=== PATIENT | female | born 1935 | race Caucasian/White ===

== ENCOUNTER 2024-10-28 11:14 | Inpatient (IN) | payer MEDICARE, OTHER, SELFPAY ==
[2024-10-28] VITALS (17 sets, daily range): BP systolic 92–112; BP diastolic 52–78; PULSE 94–145; RESP 18–36; TEMP 36.4–38.3; O2SAT 92–96; BMI 22.2
--- NOTE | ~2024-10-28 | XR_ITS ---
XR shoulder RT min 2V Ordering provider: Balaji Lackey MD History: . shoulder pain . Comparison: None. FINDINGS: BONES: No acute fracture or dislocation. JOINT SPACES: The acromioclavicular joint is normal. The glenohumeral joint shows moderate osteoarthr itic changes with osteophyte formation seen in the inferior part of the head of the humerus. SOFT TISSUES: Normal. IMPRESSION: No acute osseous abnormality right shoulder. 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 Reviewed, dictated and finalized at location A.
--- NOTE | ~2024-10-28 | CT_ITS ---
History: Altered mental status PROCEDURE: CT head without contrast. COMPARISON: None TECHNIQUE: Axial imaging of the head performed from the skull base to the vertex without IV contrast. Sagittal a nd coronal reformations obtained. DLP: 681 mGy-cm FINDINGS: The ventricles are enlarged. The dilatation of the ventricles is proportional to the degree of sulcal prominence, not uncommon in the senescent brain. Decreased attenuation is identified within the periventricular white matter, likely secondary to micr ovascular ischemic disease, in a patient of this age. There is no mass, mass effect or midline shift. There is no abnormal extra-axial fluid collection. A 5 mm intraparenchymal focus of increased attenuation is identified within the left frontal lobe for which an acute hemorrhage is suspected. Query history of trauma. Visualized paranasal sinuses are clear. The mastoid air cells are well aerated. No acute displaced fractures within the overlying cranium. Impression: Small subarachnoid hemorrhage, within the left frontal lobe, high in the convexity, as detailed above . These findings were discussed with Dr. Lackey at 2:45 PM on 10/28/2024 Reviewed, dictated and finalized at location A. Impression: Small subarachnoid hemorrhage, within the left frontal lobe, high in the convex ity, as detailed above. These findings were discussed with Dr. Lackey at 2:45 PM on 10/28/2024
--- NOTE | ~2024-10-28 | XR_ITS ---
Portable chest x-ray Comparison: None Clinical History: Altered mental status Findings: There is linear scarring right lung base. Probable small left pleural effusion. Cardiomed iastinal silhouette is prominent. Vertebroplasty noted probably T8 and T12. Impression: Probable small left pleural effusion. Linear scarring right lung base. Reviewed, dictated and finalized at [facility]. Impression: Probable small left pleural effusion. Linear scarring right lung base.
--- NOTE | ~2024-10-28 | CT_ITS ---
CT head without contrast Indication: Subarachnoid hemorrhage COMPARISON: 10/28/2024 Technique: Serial scans were obtained through the brain without the administration of contrast. Dose reduction technique was used on this scan by utilizing automated exposure control and iterative recon struction technique. The dose-length product (DLP) was 681.00 mGy-cm. Findings: There is thinning at any acute subarachnoid hemorrhage in the right frontal region (axial i mages 38-41). A small density seen from prior exam of the left frontal region is improved.. The vent ricles and subarachnoid spaces are dilated, consistent with moderate atrophy. Low attenuation region s are seen within the periventricular white matter bilaterally, likely representing changes from photogrammetric engineer mark microvascular ischemic disease. There is no evidence of edema, mass effect or midline shift. Th e visualized paranasal sinuses and mastoid air cells are clear. Impression: Small amount of acute subarachnoid hemorrhage in the right frontal region, new from prior exam. Previ ously noted small amount of subarachnoid hemorrhage in the left frontal region is decreased/improved. Atrophy and chronic white matter changes, as above. Reviewed, dictated and finalized at location M. Impression: Small amount of acute subarachnoid hemorrhage in the right frontal region, new from prior exam. Previously noted small amount of subarachnoid hemorrhage in th e left frontal region is decreased/improved. Atrophy and chronic white matter changes, as above.
--- NOTE | 2024-10-28 11:30 | ECG_ITS ---
Test Date: 2024-10-28 11:37:50 Measurements Intervals [place] Rate: 106 P: 0 DE: 0 QRS: -57 QRSD: 156 T: -3 QT: 348 QTc: 462 Interpretive Statements ATRIAL FIBRILLATION WITH RAPID VENTRICULAR RESPONSE RIGHT BUNDLE BRANCH BLOCK LEFT ANTERIOR FASCICULAR BLOCK MODERATE T-WAVE ABNORMALITY, CONSIDER ANTEROLATERAL ISCHEMIA BASELINE ARTIFACT- II, V4-V5 ABNORMAL ECG No previous ECG available for comparison Electronically Signed On 10-28-2024 15:55:26 CDT by Jw Nova D.O.
[2024-10-28 11:36] LABS: Glucose Point of Care 106 mg/dl (65-105)
[2024-10-28 12:02] LABS: Basophils Percent Auto 0.2 % (0.2-1.2); Eosinophils Absolute Auto 0.3 K/mm3 (0-0.3); Eosinophils Percent Auto 2.2 % (0-4.4); Hematocrit 35.1 % (37.0-47.0); Hemoglobin 11.2 g/dL (12.0-15.0); Immature Granulocyte Absolute 0.15 K/mm3 (0.00-0.031); Immature Granulocyte Percent A 1.1 % (0-0.5); Lymphocytes Percent Auto 3.8 % (18.3-44.2); Mean Corpuscular HGB Conc 31.9 g/dl (32-36); Mean Corpuscular Hemoglobin 32.4 pg (26-34); Mean Corpuscular Volume 101.4 fl (80-100); Mean Platelet Volume 9.5 fl (7.4-10.4); Monocytes Absolute Auto 0.7 K/mm3 (0.1-0.6); Neutrophils Absolute Auto 11.5 K/mm3 (1.3-6.7); Neutrophils Percent Auto 87.7 % (45.5-73.1); Platelet Count Result 233 k/mm3 (150-375); Red Blood Count 3.46 M/mm3 (4.2-5.4); Red Cell Distribution Width 13.2 % (11.5-14.5); White Blood Count 13.1 K/mm3 (4.5-10.0)
[2024-10-28 12:14] LABS: INR 3.8; Prothrombin Time 37.8 Seconds (11.1-14.7)
[2024-10-28 12:15] LABS: Alanine Aminotransferase 33 U/L (6-35); Albumin Level 2.7 g/dL (3.5-5.1); Alkaline Phosphatase 101 U/L (38-126); Anion Gap 8 mmol/L (4-12); Aspartate Amino Transferase 50 U/L (14-36); Bilirubin,Total 0.8 mg/dL (0.2-1.3); Blood Urea Nitrogen 32 mg/dL (7-17); Calcium 9.1 mg/dL (8.4-10.2); Carbon Dioxide 27 mmol/L (22-30); Chloride 99 mmol/L (98-107); Estimated CRCL calculation 32 ml/min; Estimated Glomerular Filt Rate 52; Glucose 102 mg/dL (65-110); Partial Thromboplastin Time 37.8 Seconds (22.3-36.8); Potassium 4.7 mmol/L (3.4-5.0); Sodium 134 mmol/L (137-145)
[2024-10-28 12:22] LABS: Add Urine Microscopic? YES; Appearance Urine Turbid (Clear); Bilirubin Urine 1+ (Negative); Blood Urine 3+ (Negative); Color Urine Dark Yellow (Yellow); Glucose Urine UA Negative (Negative); Ketones Urine Trace mg/dL (Negative); Leukocyte Esterase Ur 3+ LEU/UL (Negative); Nitrate Urine Positive (Negative); Protein Urine 2+ mg/dL (Negative); Specific Grav Ur 1.024 (1.001-1.035); pH Urine 6.5 (5.0-9.0)
--- NOTE | 2024-10-28 12:30 | PC.NURSE ---
Family at bedside reports pt behavior has been declining for the past three days. Reports she has been more fatigued and needing more assistance with ADL's. Reports last seen yesterday and was more confused than baseline. Also reports large bump on pt R shoulder is enlarged, facility recently did imagining that revealed no fractures but family states it looks larger than normal. staff and family denies any recent falls.
[2024-10-28 12:38] LABS: CRP 25.2 mg/dL (<1.0)
[2024-10-28 12:56] LABS: RBC Urine 51-100 /hpf (0-2); WBC Urine >100 /hpf (0-3)
[2024-10-28 12:57] LABS: Bacteria Urine 4+ /hpf; Squamous Epithelial Cell Urine None Seen /hpf (Few)
[2024-10-28 13:11] LABS: Lactic Acid Reflex 1.6 mmol/L (0.7-2.0)
--- NOTE | 2024-10-28 13:45 | PCCCNOTE ---
Spoke with family, pt recently living at an independent living facility but has had a decline in health and is currently at [facility] for rehab. Rehab not going well according to the family. Pt has been seen in the [facility] system extensively with both PCP and hospitalization in the [facility]. Family is only inquiring about Hospice but would like pt treated medically at this time. If hospice is decided later they would like the [facility] hospice service. Other services needed would be to arrange a SNF closer to home in [facility].
--- OUTSIDE RECORDS SUMMARY | 2024-10-28 14:06 | XMS_ITS | Continuity of Care Document ---
Author Organization [facility] Address [address] [place] [address] Phone Care Team Providers Care Associate Professor Of Medicine Name Role Phone Jered OD, Jonnathan Unavailable Unavailable Medications Medication Instructions Dosage Effective Dates (start - stop) Status Comments Polytrim 10,000 unit-1 mg/mL eye drops 1 Drop Left Eye 3x Daily. Starting 3 days prior to Surgery. - Active prednisolone acetate 1 % eye drops,suspension 1 Drop Left Eye 3x Daily. Starting 3 days prior to Surgery. - Active ketorolac 0.4 % eye drops 1 Drop Left Eye 3x Daily. Starting 3 days prior to Surgery - Active ok to change to 0.5% if 0.4% is not in stock Polytrim 10,000 unit-1 mg/mL eye drops instill 1 drop into right eye 3 times a day starting 3 days prior to surgery - Active prednisolone acetate 1 % eye drops,suspension instill 1 drop by ophthalmic route 3 times every day into right eye starting 3 days prior to surgery - Active ketorolac 0.4 % eye drops instill 1 drop by ophthalmic route into right eye three times a day starting 3 days prior to surgery - Active ok to change to 0.5% if 0.4% is not in stock Eliquis 5 mg tablet - Active atenolol 50 mg tablet - Active furosemide 20 mg tablet - Active potassium chloride ER 10 mEq tablet,extended release - Active DILT-XR 120 mg capsule, extended release - Active losartan 25 mg tablet - Active lisinopril 20 mg tablet - Active Polytrim 10,000 unit-1 mg/mL eye drops 1 Drop Left Eye 3x Daily. Starting 3 days prior to Surgery. - No Longer Active prednisolone acetate 1 % eye drops,suspension 1 Drop Left Eye 3x Daily. Starting 3 days prior to Surgery. - No Longer Active ketorolac 0.4 % eye drops 1 Drop Left Eye 3x Daily. Starting 3 days prior to Surgery - No Longer Active ok to change to 0.5% if 0.4% is not in stock Procedures Procedure Date POSTOP FOLLOW-UP VISIT POSTOP FOLLOW-UP VISIT CATARACT SURG W/IOL, 1 STAGE OPHTHALMIC BIOMETRY LT POSTOP FOLLOW-UP VISIT POSTOP FOLLOW-UP VISIT CATARACT SURG W/IOL, 1 STAGE GDX Retina OPHTHALMIC BIOMETRY LT OFFICE/OUTPATIENT VISIT, [facility] Advance Directives Directive Yes / No Effective Date File Name No Information Encounters Encounter Description Practice Location Reason(s) For Visit Diagnoses Date Provider Providers Copied on Encounter [facility], [address] [place] [address], [id number], [place] [phone] [facility] Same day post-op (chief complaint) Encounter for other specified surgical aftercare 1 Jered De Santiago. [address] [facility], [place], [address], [place]. tel: [phone] Referring Provider: Xavier Oconnor, [address] [place], [address]. tel:[phone] [facility], [address] [place] [address], [id number], [place] tel:[phone] [address] [place] [address] [facility] No Information 1 Sathish Randall. [address] [place] [address], [facility], . tel: [phone] Referring Provider: [address] A, [place], [address]. tel:[phone] [facility], [address] [place] [address], [address] [place] [address], tel:[phone] [place] [address] [facility] No Information 1 [facility]. [address] [place] [address], [facility], . tel: [phone] Referring Provider: [address], [place], [address]. tel:[phone] [facility], [address] [place] [address], [address] [place] [address], [phone] [place] [address] [facility] Age-related nuclear cataract, left eye 1 Sathish Randall. [address] [place] [address], [facility], . tel: [phone] [facility], [address] [place] [address], [id number], [phone] [place] [address] [facility] No Information 1 [facility]. [address] [place] [address], [facility], [place]. tel: [phone] [facility], [address] [place] [address], [id number], [phone] [place] [address] [facility] POV cataract surgery (chief complaint) Encounter for other specified surgical aftercare 1 Modi Purvi. [address] [place] [address], [facility], . tel: [phone] Referring Provider: [address], [place], [address]. tel:[phone] [facility], [address] [place] [address], [id number], tel:[phone] [address] [place] [address] [facility] No Information 1 [facility]. [address] [place] [address], [facility], . tel:[phone] Referring Provider: [address], [place], [address]. tel:[phone] OFFICE/OUTPA TIENT VISIT, [facility], [address] [place] [address], [id number], tel:[phone] [facility] blurry vision (chief complaint) Age-related nuclear cataract, bilateralNexdtve age-related mclr degn, left eye, intermed dry stageNexdtve age-related mclr degn, right eye, early dry stage 1 [facility]. [address] [place] [address], [facility], . [phone] Referring Provider: [address], [place], [address]. tel:[phone] Family History Family Member Type Diagnosis Age At Onset No Information Payers Payer name Insurance type Covered republican ID Authoriza tion(s) No Information Social History Type Description Quantity Date Captured Comments Alcohol Use Details Unknown Caffeine Use Details Unknown Tobacco Use Status No Information Smoking Status No Information Sex Female Chief Complaint And Reason For Visit From encounter dated '01/18/2021 11:15'. Same day post-op (chief complaint). Description: The 85 year old female presents for evaluation of Same day post-op in the left eye. No pain, no discomfort. Reason For Referral Reason For Referral No Information History Of Present Illness Encounter Date Complaint History Of Prese nt Illness Same day post-op The 85 year old female presents for evaluation of Same day post-op in the left eye. No pain, no discomfort. POV cataract surgery The 85 year old female presents for evaluation of POV cataract surgery in the right eye. The onset was this morning. Pt compliant with Polytrim, Prednisolone, Ketorolac OD. Pt reports surgery went well. Pt reports blurry vision OD but is in no pain. Comanaged by Dr. Oconnor. blurry vision The 85 year old female presents for evaluation of blurry vision in the right eye > left eye. Several years. Gradual onset. Constant. 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 Right Patient Care Teams Name Effective Dates (start - stop) Status Members No Information
--- OUTSIDE RECORDS SUMMARY | 2024-10-28 14:06 | XMS_ITS | Encounter Summary ---
Author Organization [facility] Address [address] [place] [address] Care Team Providers Care Underwater Photographer Name Role Phone Fela Zaidi MD Primary Care Provider + [phone] Eugene Leo MD Unavailable Unavailabl e Fela Zaidi MD Primary Care Provider + [phone] Teddy Vela MD Unavailable [phone] Fela Zaidi MD Unavailable [phone] Carline Tinsley RN Unavailable [phone] Carline Tinsley RN Unavailable [phone] Encounter Details Date Type Department Care Team (Late st Contact Info) Description 07/31/2018 Nippo Message Enc [facility] [place] [address] [facility], [address] [place] [address] Teddy Vela MD [address] [facility] [address] [place] [address] RE: Question Social History Tobacco Use Types Packs/Day Years Used Date Smoking Tobacco: Former Cigarettes 0.3 5 1 988 - 1992 Smokeless Tobacco: Never Alcohol Use Standard Drinks/Week Comments No 0 (1 standard drink = 0.6 oz pur e alcohol) Comments No Sex and Gender Information Value Date Recorded Sex Assigned at Female 09/19/2024 3:45 PM CDT Legal Sex Female 9:19 PM CDT Gender Identity Female 09/30/2024 2:31 PM CDT Sexual Orientation Straight 09/30/2024 2: 31 PM CDT Occupation Industry Job Start Date Job End Date Not on file Not on file Not on file Not on file documented as of this encounter Plan of Treatment Upcoming Encounters Date Type Department Care Team (Late st Contact Info) Description 11/15/2024 12:30 PM CDT Office Visit [facility] [address] [facility] [address], [address] [place] [address] Mabel Vasquez MD [facility] [address] [place], [place] [id number] documented as of this encounter Visit Diagnoses Not on filedocumented in this encounter Additional Health Concerns Infection Onset Date Last Indicated Resolved Time COVID-19 Rule Out 10/30/2022 10/30/2022 10/30/2022 4:50 PM CDT COVID-19 Rule Out 09/19/2024 09/19/2024 09/19/2024 4:00 PM CDT Respiratory Rule-Out 09/19/2024 09/19/2024 025 4:00 PM CDT COVID-19 Rule Out 09/19/2024 09/19/2024 09/19/2024 5:35 PM CDT Respiratory Rule-Out 09/19/2024 09/19/2024 025 7:10 PM CDT Influenza - Seasonal 09/19/2024 09/19/2024 025 12:32 AM CDT documented as of this encounter Care Teams Underwater Photographer Relationship Specialty Start Date End Date Fela Zaidi MD [address] [facility] [address] [place] [address] PCP - General FAMILY PRACTICE 04/01/18 09/12/18 Fela Zaidi MD [address] [facility] [address] [address] [place] [address] PCP - General FAMILY PRACTICE 09/22/18 Fela Zaidi MD [address] [facility] [address] [place] [address] PCP - Med Group - MSSP Attributed Provider 07/14/15 03/31/19 Eugene Leo MD [address] [facility] [address] [place] [address] Surgeon NEUROLOGICAL SURGERY 08/27/18 09/12/18 Teddy Vela MD [address] [facility] [address] [place] [address] [place] Bindery Helper CARDIOVASCULAR DISEASE 09/23/18 Carline Tinsley, RN [address] [facility] [address] [place] [address] Bricklayer Sewer (Ambulatory) REGISTERED NURSE 05/16/21 10/29/22 Carline Tinsley, RN [address] [facility] [address] [place] [address] Registered Nurse CARE MANAGEMENT 09/20/24 documented as of this encounter
--- OUTSIDE RECORDS SUMMARY | 2024-10-28 14:06 | XMS_ITS | Encounter Summary ---
Author Organization [facility] Address [address] [place] [address] Care Team Providers Care Follow Up Specialist Name Role Phone Fela Zaidi MD Primary Care Provider + [phone] Eugene Leo MD Unavailable Unavailabl e Fela Zaidi MD Primary Care Provider + [phone] Teddy Vela MD Unavailable [phone] Fela Zaidi MD Unavailable [phone] Carline Tinsley RN Unavailable [phone] Carline Tinsley RN Unavailable [phone] Encounter Details Date Type Department Care Team (Latest Contact Info) Description 05/19/2018 Abstract [facility] Medical Group Jeff Lam MD Social History Tobacco Use Types Packs/Day Years [...] Encounters Date Type Department Care Team (Late Contact Info) Description 11/15/2024 12:30 PM CDT Office Visit [facility] [address] [facility], [address] [place] [address] Mabel Vasquez MD Three [facility] [address] [place] [address] documented as of this encounter Visit Diagnoses [...] documented as of this encounter Care Teams Follow Up Specialist Relationship Specialty Start Date End Date Fela Zaidi MD [address] [facility] [address] [place] [address] PCP - General FAMILY PRACTICE 04/01/18 09/12/18 Fela Zaidi MD [address] [facility] [address] [place] [address] PCP - General FAMILY PRACTICE 09/22/18 Fela Zaidi MD [address] [facility] [address] [place] [address] PCP - Med Group - MSSP Attributed Provider 07/14/15 03/31/19 Eugene Leo MD [address] [facility] [address] [place] [address] Surgeon NEUROLOGICAL SURGERY 08/27/18 09/12/18 Teddy Vela MD [address] [facility] [address] [place] [address] [place] Pens [employer] Pencils Repairer CARDIOVASCULAR DISEASE 09/23/18 Carline Tinsley, RN [address] [facility] [address] [place] [address] [employer] Mock Up Mechanic (Ambulatory) REGISTERED NURSE 05/16/21 10/29/22 Carline Tinsley, RN [address] [facility] [address] [place] [address] Registered Nurse CARE MANAGEMENT 09/20/24 documented as of this encounter
--- OUTSIDE RECORDS SUMMARY | 2024-10-28 14:07 | XMS_ITS | Encounter Summary ---
Author Organization [facility] Address [address] [place] [address] Care Team Providers Care Samples And Repairs Preparer Name Role Phone Fela Zaidi MD Primary Care Provider + [phone] Teddy Vela MD Unavailable [phone] Carline Tinsley RN Unavailable [phone] Encounter Details Date Type Department Care Team (Late st Contact Info) Description 03/29/2024 [employer] Message Enc [facility] THREE [facility], [address] [place], [place] [id number] Milady Baumann, CHANDNI [address] [facility] [address] [place], [place] [id number] Elsi Syed Social History Tobacco Use Types Packs/Day Years Used Date Smoking Tobacco: Former Cigarettes 0.3 20 1 973 - 1992 Passive Smoke Exposure: Never Smokeless Tobacco: Never Comments:N/A Alcohol Use Standard Drinks/Week Comments No 0 (1 standard drink = 0.6 oz pur e alcohol) PHQ-2 Answer Date Recorded Patient Health Questionnaire-2 Score 0 10/27/2023 Comments No Sex and Gender Information Value Date Recorded Sex Assigned at Female 09/19/2024 3:45 PM CDT Legal Sex Female 9:19 PM CDT Gender Identity Female 09/30/2024 2:31 PM CDT Sexual Orientation Straight 09/30/2024 2: 31 PM CDT Occupation Industry Job Start Date Job End Date Not on file Not on file Not on file Not on file documented as of this encounter Functional Status * RETIRED Are you deaf or do you have serious difficulty hearing Answer Date of Assessment Author Status No 05/15/2021 9:31 PM CDT Activ e * RETIRED Are you blind or do you have serious difficulty seeing, even when wearing glasses? Answer Date of Assessment Author Status No 05/15/2021 9:31 PM CDT Activ e * Do you have serious difficulty walking or climbing stairs? Answer Date of Assessment Author Status Yes 05/15/2021 9:31 PM CDT Francisco Parish RN Active * Do you have difficulty dressing or bathing? Answer Date of Assessment Author Status No 05/15/2021 9:31 PM CDT Francisco Parish RN Active * Because of a physical, mental, or emotional condition, do you have difficulty doing errands alone such as visiting a doctor's office or shopping? Answer Date of Assessment Author Status Yes 05/15/2021 9:31 PM CDT Francisco Parish RN Active documented as of this encounter Mental Status * Because of a physical, mental, or emotional condition, do you have serious difficulty concentrating, remembering, or making decisions? Answer Entry Date Author Status No 05/15/2021 9:31 PM CDT Francisco Parish RN Active documented in this encounter Progress Notes * Beth Disla RN - 03/30/2024 4:28 PM CDT Continue 40 QD. BMP this week. Should be seen in clinic next week. Above message from Dr. Vasquez. MyChart message sent to the patient with the above information. Message to the dental secretary. documented in this encounter Plan of Treatment Upcoming Encounters Date Type Department Care Team (Late st Contact Info) Description 11/15/2024 12:30 PM CDT [facility] [address] [place] [address] Mabel Vasquez MD [facility] [address] [place] [address] documented as of this encounter Goals Goal Patient Goal Type Associated Problems Recent Progress Patient-Stated? Author Consistently take medications as Prescribed General On track( 2:45 PM REDUCING MACHINE OPERATOR) No Carline Tinsley, RN Note: 05/24/21: Patient is managing her medications and taking them as prescribed. Establish Plan for Symptom Monitoring r/t CHF and hyponatremia General On track( 2:45 PM REDUCING MACHINE OPERATOR) No Carline Tinsley, RN Note: 05/24/21: Breathing improved. Some dyspnea on exertion. No complaints of edema. No weights reported.daughter to assist patient in setting up scale and coming up with a plan to weigh each day. Will report wt gain >3 pounds overnight or >5 pounds in a week. documented as of this encounter Visit Diagnoses Not on filedocumented in this encounter Additional Health Concerns Infection Onset Date Last Indicated Resolved Time COVID-19 Rule Out 09/19/2024 09/19/2024 09/19/2024 4:00 PM CDT Respiratory Rule-Out 09/19/2024 09/19/2024 025 4:00 PM CDT COVID-19 Rule Out 09/19/2024 09/19/2024 09/19/2024 5:35 PM CDT Respiratory Rule-Out 09/19/2024 09/19/2024 025 7:10 PM CDT Influenza - Seasonal 09/19/2024 09/19/2024 025 12:32 AM CDT Assessment Noted Time PHQ-9 Depression Total Score: 0 10/27/19 24 2:32 PM CDT documented as of this encounter Care Teams Samples And Repairs Preparer Relationship Specialty Start Date End Date Fela Zaidi MD [address] [facility] [address] [place] [address] PCP - General FAMILY PRACTICE 09/22/18 Teddy Vela MD [address] [facility] [address] [place] [address] [place] Manager Training CARDIOVASCULAR DISEASE 09/23/18 Carline Tinsley, RN [address] [facility] [address] [place] [address] Registered Nurse CARE MANAGEMENT 09/20/24 documented as of this encounter
--- OUTSIDE RECORDS SUMMARY | 2024-10-28 14:07 | XMS_ITS | Encounter Summary ---
Author Organization [facility] Address [address] [place] [address] Care Team Providers Care Crown Attacher Name Role Phone Fela Zaidi MD Primary Care Provider + [phone] Teddy Vela MD Unavailable [phone] Carline Tinsley RN Unavailable [phone] Encounter Details Date Type Department Care Team (Late st Contact Info) Description 02/05/2023 [employer] Message Enc [place] [facility] THREE [facility], [address] [address] [place], [facility] Provider Echocardiogram Social History Tobacco Use Types Packs/Day Years Used Date Smoking Tobacco: Former Cigarettes 0.3 20 1 973 - 1992 Smokeless Tobacco: Never Comments:N/A Alcohol Use Standard Drinks/Week Comments No 0 (1 standard drink = 0.6 oz pur e alcohol) PHQ-2 Answer Date Recorded PHQ-2 Score - If the patient scores above 3, please move on to questions 3-9 0 03/21/2022 Comments No Sex and Gender Information Value [...] Parish RN Active documented in this encounter Plan of Treatment Upcoming Encounters Date Type Department Care Team (Late st Contact Info) Description 11/15/2024 12:30 PM CDT [facility] [address] [place], [place] [address] Mabel Vasquez MD [facility] [address] [place], [place] [phone] documented as of this encounter Goals Goal Patient Goal Type Associated Problems Recent Progress Patient-Stated? Author Consistently take medications as Prescribed General On track( 2:45 PM CLINICAL SUPPORT NURSE) No Carline Tinsley RN Note: 05/24/21: Patient is managing her medications and taking them as prescribed. Establish Plan for Symptom Monitoring r/t CHF and hyponatremia General On track( 021 2:45 PM CLINICAL SUPPORT NURSE) Carline Damon RN Note: 05/24/21: Breathing improved. Some dyspnea [...] documented as of this encounter Care Teams Crown Attacher Relationship Specialty Start Date End Date Fela Zaidi MD [address] [facility] [address] [place] [address] PCP - General FAMILY PRACTICE 09/22/18 Teddy Vela MD [address] [facility] [address] [place] [id number] [place] Photo Finish Photographer CARDIOVASCULAR DISEASE 09/23/18 Carline Tinsley, RN [address] [facility] [address] [place], [place] [id number] Registered Nurse CARE MANAGEMENT 09/20/24 documented as of this encounter
--- OUTSIDE RECORDS SUMMARY | 2024-10-28 14:07 | XMS_ITS | Encounter Summary ---
Author Organization [facility] Address [address] [place] [address] Care Team Providers Care Director Telemetry Name Role Phone Fela Zaidi MD Primary Care Provider + [phone] Teddy Vela MD Unavailable [phone] Carline Tinsley RN Unavailable [phone] Reason for Visit * Reason Onset Date Comments Hospital Follow Up 10/19/2024 Inpatient f/u w/[facility]--UPDATED 10/28 Encounter Details Date Type Department Care Team (Late st Contact Info) Description 10/19/2024 Patient Outreach [facility] Medical Group Family Medicine - [place] [address], [address] [place] [address] Carline Tinsley, RN [address] [facility] [address] [place] [address] Hospital Follow Up (Inpatient f/u w/[facility]--UPDATED 10/28) Social History Tobacco Use Types Packs/Day Years Used Date Smoking Tobacco: Former Cigarettes 0.3 20 1 3 - 1992 Passive Smoke Exposure: Never Smokeless Tobacco: Never Comments:N/A Alcohol Use Standard Drinks/Week Comments No 0 (1 standard drink = 0.6 oz pur e alcohol) B1300 Health Literacy Answer Date Recor ded How often do you need to hav e someone help you when you read instructions, pamphlets, or other written material from your doctor or pharmacy? Often 09/30/2024 [facility] Utilities Answer Date Recorded In the past 12 months has th e electric, gas, oil, or water [employer] threatened to shut off services in your home? No 09/30/2024 Humiliation, Afraid, Rape, and Kick questionnair e Answer Date Recorded Within the last year, have y ou been afraid of your partner or ex-partner? No 09/30/2024 Within the last year, have y ou been humiliated or emotionally abused in other ways by your partner or ex-partner? No Within the last year, have y ou been kicked, hit, slapped, or otherwise physically hurt by your partner or ex-partner? No 09/30/2024 Within the last year, have y ou been raped or forced to have any kind of sexual activity by your partner or ex-partner? No 09/30/2024 Social Connection and Isolation Panel [NHANES] A nswer Date Recorded In a typical week, how many times do you talk on the phone with family, friends, or neighbors? Once a week 10/01/19 How often do you get togethe r with friends or relatives? Twice a week 09/30/2024 How often do you attend chur ch or lutheran services? 1 to 4 times per year 09/30/2024 Do you belong to any clubs o r organizations such as yazdanism groups, unions, fraternal or athletic groups, or school groups? No 09/30/2024 How often do you attend meet ings of the clubs or organizations you belong to? Never 09/30/2024 Are you , , di vorced, , never , or living with a partner? 09/30/2024 Overall Financial Resource Strain (CARDIA) Answe r Date Recorded How hard is it for you to pa y for the very basics like food, housing, medical care, and heating? Not hard at all 09/30/2024 PHQ-2 Answer Date Recorded Patient Health Questionnaire-2 Score 0 09/30/2024 [facility] [place] [facility] Occupat ional Health - Occupational Stress Questionnaire Answer Date Recorded Do you feel stress - tense, restless, nervous, or anxious, or unable to sleep at night because your mind is troubled all the time - these days? Not at all 09/30/2024 Exercise Vital Sign Answer Date Recorde d On average, how many days pe r week do you engage in moderate to strenuous exercise (like a brisk walk)? 0 days 09/30/2024 On average, how many minutes do you engage in exercise at this level? 0 min 09/30/2024 Hunger Vital Sign Answer Date Recorded Within the past 12 months, y ou worried that your food would run out before you got the money to buy more. Never true 10/01/19 25 Within the past 12 months, t he food you bought just didn't last and you didn't have money to get more. Never true 09/30/2024 PRAPARE - Transportation Answer Date Re corded In the past 12 months, has l ack of transportation kept you from medical appointments or from getting medications? No 09/12 In the past 12 months, has l ack of transportation kept you from meetings, work, or from getting things needed for daily living? No 09/30/2024 Housing Stability Vital Sign Answer Harry e Recorded In the last 12 months, was t here a time when you were not able to pay the mortgage or rent on time? No 09/19/2024 In the past 12 months, how m any times have you moved where you were living? 0 09/19/2024 At any time in the past 12 m [facility], were you homeless or living in a penitentiary (including now)? No 09/19/2024 Comments No Sex and Gender Information Value [...] as of this encounter Functional Status * Are you deaf or do you have serious difficulty hearing Answer Date of Assessment Author Status No 09/30/2024 4:47 PM CDT Jocy Rm R N Active * Are you blind or do you have serious difficulty seeing, even when wearing glasses? Answer Date of Assessment Author Status No 09/30/2024 4:47 PM CDT Jocy Rm R N Active * Do you have serious difficulty walking or climbing stairs? Answer Date of Assessment Author Status Yes 09/30/2024 4:47 PM CDT Jocy Rm R N Active * Do you have difficulty dressing or bathing? Answer Date of Assessment Author Status Yes 09/30/2024 4:47 PM CDT Jocy Rm R N Active * Because of a physical, mental, or emotional condition, do you have difficulty doing errands alone such as visiting a doctor's office or shopping? Answer Date of Assessment Author Status Yes 09/30/2024 4:47 PM CDT Jocy Rm R N Active documented as of this encounter Mental Status * Because of a physical, mental, or emotional condition, do you have serious difficulty concentrating, remembering, or making decisions? Answer Entry Date Author Status Yes 09/30/2024 4:47 PM CDT Jocy Rm R N Active documented in this encounter Progress Notes * Carline Tinsley RN - 10/19/2024 8:49 AM CDT 10/19 0846: Spoke with Teto with facility. Reports patient is progressing no talks of dc. Denies anyknown dc date at this time. Discussed pcp appt for 10/25 and appt cancelled. Patient following in house provider and to follow up with pcp upon facility dc. 10/25 0933: Called facility and spoke with Gurjit and confirmed patient remains inhouse/rehab at this time 10/28 1108: Spoke with Tiara VASQUEZ, reports patient is doing ok, noting yesterday not the best day for patient. Reports that she had some pain issues and that they are continuing to try wean patient off of o2. Reports that patient is still needing max assist with transfers and mobility. Discussed patients previous living situation: ILF and likely will need at minimum SLF. Denies any known dc date at this time. Plan of Care: authorization coordinator to continue to follow throughout transitions of care. documented in this encounter Plan of Treatment Upcoming Encounters Date Type Department Care Team (Late st Contact Info) Description 11/15/2024 12:30 PM CDT Office Visit [facility] [place], [place] [id number] Mabel Vasquez MD [address] [facility] [address] [place], [place] [id number] documented as of this encounter Goals Goal Patient Goal Type Associated Problems Recent Progress Patient-Stated? 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 Some dyspnea on exertion. No complaints of edema. No weights reported.daughter to assist patient in setting up scale and coming up with a plan to weigh each day. Will report wt gain >3 pounds overnight or >5 pounds in a week. Health - patient able to perform ADLs independently Lifestyle No Ada Bonds RN documented as of this encounter Visit Diagnoses Not on filedocumented in this encounter Additional Health Concerns Assessment Noted Time PHQ-9 Depression Total Score: 0 10/27/19 24 2:32 PM CDT documented as of this encounter Care Teams Director Telemetry Relationship Specialty Start Date End Date Fela Zaidi MD [address] [facility] [address] [place] [phone] PCP - General FAMILY PRACTICE 09/22/18 Teddy Vela MD [address] [facility] [address] [place] [phone] Katrin Career Agent CARDIOVASCULAR DISEASE 09/23/18 Carline Tinsley, RN [address] [facility] [address] [place] [address] Registered Nurse CARE MANAGEMENT 09/20/24 documented as of this encounter
--- OUTSIDE RECORDS SUMMARY | 2024-10-28 14:07 | XMS_ITS ---
Author Organization [facility] Address [address] [place], [place] [id number] Care Team Providers Care Key Ringer Name Role Phone PURNIMA GARCIA Unavailable [phone] Fela Zaidi Unavailable Unavailable Allergies No Known Allergies REASON FOR VISIT The right 3rd toe did well after being treated at last visit., Patient presents for at-risk foot care . The patient has painful toenails and calluses that are causing difficulty with ambulation and shoegear. The onset is gradual Medications Medication SIG (Take, Route, Frequency, Duration) Notes Start Date End Date Status ubidecarenone 10 MG Oral Capsule ORAL ubidecarenone 10 MG Oral CapsuleOriginal Medicationubidecarenone 10 MG Oral Capsule *Reorder from [employer] for eRx and Interaction Alerts* 9 Active Apixaban 2.5 MG Oral Tablet ORAL apixaban 2.5 MG Oral TabletOriginal Medicationapixaban 2.5 MG Oral Tablet *Reorder from [employer] for eRx and Interaction Alerts* 9 Active Encounters Encounter Location Date Provider Diagnosis [facility] [address] [facility] [address] [place], [place] [id number] 05/06/2024 PURNIMA GARCIA Tinea unguium B35.1 ; Pain in right foot M79.671 ; Pain in left foot M79.672 ; 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, bilateral legs I70.213 and Acquired keratosis [keratoderma] palmaris et plantaris L85.1 Assessments Encounter Date Diagnosis (ICD Code) Assessment Notes Treatment Notes Treatment Clinical Notes Section Notes 05/06/2024 Tinea unguium (ICD-10 - B35.1) Nails 1-5 Bilateral were debrided extensively with nail nippers and emery board, reducing length and girth to pink healthy tissue with any subungual debris and necrotic tissue removed 05/06/2024 Pain in right foot (ICD-10 - M79.671) 05/06/2024 Pain in left foot (ICD-10 - M79.672) 05/06/2024 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, bilateral legs (ICD-10 - I70.213) 05/06/2024 Acquired keratosis [keratoderma] palmaris et plantaris (ICD-10 - L85.1) A total of 2 corns or calluses, as described in the note above, were cut and pared utilizing a #15 blade Plan Of Treatment Treatment Notes Assessment Notes Tinea unguium Nails 1-5 Bilateral were debrided extensively with nail nippers and emery board, reducing length and girth to pink healthy tissue with any subungual debris and necrotic tissue removed Acquired keratosis [keratode rma] palmaris et plantaris A total of 2 corns or calluses, as described in the note above, were cut and pared utilizing a #15 blade Next Appt Details Follow Up: 10 - 12 weeks, Re ason: At-Risk Foot care, sooner if problems develop. Progress Notes * SHERRI WELSH EDOB:[birth year] (89 yo F)Acc No.[id number]:05/06/2024 Patient: Aravind LIMANIKKILUISCarola Pollack Provider: Jaki Garcia DPM :1935 A ge:88 Y S ex:Female Date:05/06/2024 Address:[address] [place] [address], [place] [id number] Subjective: * Chief Complaints: * 1 . The right 3rd toe did well after being treated at last visit.. 2. Patient presents for at-risk foot care . The patient has painful toenails and calluses that are causing difficulty with ambulation and shoegear. The onset is gradual. * HPI: H PI: General care P moo presents to the office for at risk foot care. Patient states that their nails are thickened, elongated and painful. Patient states that it is aggravated by shoe gear. Onset is gradual. Patient denies being diabetic., Patient denies taking blood thinners., Date last seen by Dr. Zaidi was September 2023., Initials LB. * Medical History: * Family History: F ather: PRN - Father: . M other: PRN - Mother: . S ister: SIB - Sister: . * Social History: M igrated Social History: M igrated Social History: History of tobacco use : , Smoking Status : Former smoker. * Medications: T aking Apixaban 2.5 MG Oral Tablet ORAL , Notes to Pharmacist: apixaban 2.5 MG Oral TabletOriginal Medicationapixaban 2.5 MG Oral Tablet *Reorder from [employer] for eRx and Interaction Alerts*, Taking ubidecarenone 10 MG Oral Capsule ORAL , Notes to Pharmacist: ubidecarenone 10 MG Oral CapsuleOriginal Medicationubidecarenone 10 MG Oral Capsule *Reorder from [employer] for eRx and Interaction Alerts*, Medication List reviewed and reconciled with the patient * Allergies: N .K.D.A. Objective: * Vitals: * Examination: P hysical Examination: General appearance: A lert, pleasant, well-nourished and in no acute distress. D ermatologic: Skin findings: S kin is thin, atrophic and lacking pedal hair. Hypertrophic / hyperkeratotic lesion: d istal tip of the right 3rd digit, plantar aspect of the left 2nd metatarsal head. Nail pathology: N ails 1, 2, 3, 4, and 5 bilateral are elongated, thick, discolored, and dystrophic with subungual debris. They are painful to palpation. ? V ascular: Dorsalis pedis pulse: 1 /4 b ilateral. Posterior tibial pulse: 0 /4 bilateral. Capillary refill: g reater than 3 seconds. Edema: N o edema bilateral. N eurologic: Gross sensation G rossly intact to light touch. There is negative Tinel's sign. M usculoskeletal: Muscle Strength M uscle strength is 5/5 in regards to dorsiflexion, plantarflexion, inversion, and eversion in bilateral lower extremities. ? Assessment: * Assessment: 1. T inea unguium - B35.1 (Primary) 2 . P ain in right foot - M79.671 ? 3 . P ain in left foot - M79.672 4 . 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 Acquired keratosis [keratoderma] palmaris et plantaris - L85.1 Plan: * Treatment: 2. A cquired keratosis [keratoderma] palmaris et plantaris Notes: A total of 2 corns or calluses, as described in the note above, were cut and pared utilizing a #15 blade * Procedure Codes: 1 1056 TRIM SKIN LESIONS, 2 TO 4, Modifiers: Q8 , 65861 DEBRIDE NAIL, 6 OR MORE, Modifiers: 59 , Q8 * Follow Up: 1 0 - 12 weeks (Reason: At-Risk Foot care, sooner if problems develop.) * Billing Information: * Visit Code: * Procedure Codes: 62924 TRIM SKIN LESIONS, 2 TO 4. Modifiers: Q8 04065 DEBRIDE NAIL, 6 OR MORE. Modifiers: 59, Q8 * Electronic signature of PURNIMA GARCIA DPM on 10/28/2024 at 02:07 PM CDT Sign off status: Pending * Provider: Jaki Garcia DPM Date: Generated for Desire magana/Jennifer/Bernard on: 0 10/28/2024 02:07 PM CDT History and Physical Notes * HPI (History of Present Illness) Category Sub-Category Detail Notes Category Not es HPI General care Patient presents to the office for at risk foot care. Patient states that their nails are thickened, elongated and painful. Patient states that it is aggravated by shoe gear. Onset is gradual. Patient denies being diabetic., Patient denies taking blood thinners., Date last seen by Dr. Zaidi was September 2023., Initials LB Examination Category Sub-Category Detail Notes Category Not es Dermatologic Skin findings: Skin is thin, at rophic and lacking pedal hair Nail pathology: Nails 1, 2, 3, 4, an d 5 bilateral are elongated, thick, discolored, and dystrophic with subungual debris. They are painful to palpation Hypertrophic / hyperkeratotic lesion: di stal tip of the right 3rd digit, plantar aspect of the left 2nd metatarsal head Neurologic Gross sensation Grossly intact t o light touch. There is negative Tinel's sign Vascular Dorsalis pedis pulse: 1/4 bilateral Edema: No edema bilateral Capillary refill: greater than 3 secon ds Posterior tibial pulse: 0/4 bilateral Physical Examination General appearance: Alert, pleasant, well-nourished and in no acute distress Musculoskeletal Muscle Strength Muscle strength is 5/5 in regards to dorsiflexion, plantarflexion, inversion, and eversion in bilateral lower extremities
--- OUTSIDE RECORDS SUMMARY | 2024-10-28 14:07 | XMS_ITS | Encounter Summary ---
Author Organization [facility] Address [address] [place] [address] Care Team Providers Care Foreman Or Supervisor And Operator Name Role Phone Fela Zaidi MD Primary Care Provider + [phone] Teddy Vela MD Unavailable [phone] Carline Tinslye RN Unavailable [phone] Carline Tinsley RN Unavailable [phone] Encounter Details Date Type Department Care Team (Late st Contact Info) Description 05/04/2019 Zarpo Message Enc [facility] Medical Group Family Medicine - [place] [address] [place] [phone] Fela Zaidi MD [address] [facility] [place] [address] Test Results Social History Tobacco Use Types Packs/Day Years Used Date Smoking Tobacco: Former Cigarettes 0.3 20 1 973 - 1992 Smokeless Tobacco: Never Alcohol Use [...] Answer Date of Assessment Author Status No 09/08/2018 1:11 AM APARTMENT ASSISTANT MANAGER Activ e * RETIRED Are you blind or do you have serious difficulty seeing, even when wearing glasses? Answer Date of Assessment Author Status No 09/08/2018 1:11 AM APARTMENT ASSISTANT MANAGER Activ e * Do you have serious difficulty walking or climbing stairs? Answer Date of Assessment Author Status Yes 09/08/2018 1:11 AM Arlene Aguilar R N Active * Do you have difficulty dressing or bathing? Answer Date of Assessment Author Status Yes 09/08/2018 1:11 AM Arlene Aguilar R N Active * Because of a physical, mental, or emotional condition, do you have difficulty doing errands alone such as visiting a doctor's office or shopping? Answer Date of Assessment Author Status Yes 09/08/2018 1:11 AM Arlene Aguilar R N Active documented as of this encounter Mental Status * Because of a physical, mental, or emotional condition, do you have serious difficulty concentrating, remembering, or making decisions? Answer Entry Date Author Status No 09/08/2018 1:11 AM Arlene Aguilar R N Active documented in this encounter Plan of Treatment Upcoming Encounters Date Type Department Care Team (Late st Contact Info) Description 11/15/2024 12:30 PM CDT [facility] [address] [place] [address] Mabel Vasquez MD [facility] [address] [place] [address] documented as of this encounter Visit Diagnoses [...] documented as of this encounter Care Teams Foreman Or Supervisor And Operator Relationship Specialty Start Date End Date Fela Zaidi MD [address] [facility] [place] [address] PCP - General FAMILY PRACTICE 09/22/18 Teddy Vela MD [address] [facility] [address] [place] [address] [place] Order Taker CARDIOVASCULAR DISEASE 09/23/18 Carline Tinsley, RN [address] [place] [address] Mint Machine Operator (Ambulatory) REGISTERED NURSE 05/16/21 10/29/22 Carline Tinsley, RN [address] [place] [address] Registered Nurse CARE MANAGEMENT 09/20/24 documented as of this encounter
--- OUTSIDE RECORDS SUMMARY | 2024-10-28 14:07 | XMS_ITS ---
Author Organization [facility] Address [address] [place], [place] [id number] Care Team Providers Care Marine Fitter Name Role Phone PURNIMA GARCIA Unavailable [phone] Fela Zaidi Unavailable Unavailable REASON FOR VISIT *General care Encounters Encounter Location Date Provider Diagnosis [facility] [place] [address] [facility] [address] [place], [place] [id number] 07/30/2024 PURNIMA GARCIA Plan Of Treatment No Information Progress Notes * SHERRI WELSH EDOB:[birth year] (89 yo F)Acc No.[id number]:07/30/2024 Patient: SHERRI SORENSEN Provider: Jaki Garcia DPM :1935 A ge:89 Y S ex:Female Date:07/30/2024 Address:[address] [place] [address] [address] [facility] Subjective: * Chief Complaints: * 1 . *General care. * Medical History: Objective: * Vitals: Assessment: Plan: * Treatment: * Billing Information: * Visit Code: * Procedure Codes: * Electronic signature of PURNIMA GARCIA DPM on 10/28/2024 at 02:07 PM CDT Sign off status: Pending * Provider: Jaki Garcia DPM Date: 0 07/30/2024 Generated for Desire magana/Jennifer/eTleonciosmitting on: 0 10/28/2024 02:07 PM CDT
--- OUTSIDE RECORDS SUMMARY | 2024-10-28 14:07 | XMS_ITS | Clinical Summary ---
Author Organization [facility] Address [address] [place] [address] Care Team Providers Care Asset Protection Agent Name Role Phone Fela Zaidi MD Primary Care Provider + [phone] Teddy Vela MD Unavailable [phone] Carline Tinsley RN Unavailable [phone] Allergies No known active allergies Medications Multiple Vitamin (DAILY VITAMIN) Tab Take 1 tablet by mouth daily. 30 tablet 019 Active acetaminophen 325 MG tablet Take 2 tablets (650 mg total) by mouth every 6 (six) hours as needed for Pain or Fever. Not to exceed 3gm/24h Active apixaban (ELIQUIS) 5 MG tablet Take 1 tablet (5 mg total) by mouth 2 (two) times daily. 180 tablet 025 Active carvedilol (COREG) 6.25 MG tablet Take 1 tablet (6.25 mg total) by mouth 2 (two) times daily. 180 tablet 025 Active spironolacton e (ALDACTONE) 25 MG tablet Take 0.5 tablets (12.5 mg total) by mouth daily. 45 tablet 025 Active furosemide (LASIX) 40 MG tabletIndicat ions:Heart Failure Take 1 tablet (40 mg total) by mouth daily. Indications: Cardiac Failure 30 tablet 025 Active albuterol sulfate HFA 108 (90 Base) MCG/ACT inhalerIndica tions:Dyspnea Inhale 2 puffs into the lungs every 6 (six) hours as needed for Wheezing. Indications: Difficulty Breathing 18 g Active magnesium oxide (MAG-OX) 400 MG tabletIndicat ions:hypomage nesemia Take 1 tablet (400 mg total) by mouth 2 (two) times daily for 30 days. Indications: hypomagenesemia 60 tablet 025 2024 Active OXYGEN 4 L/min by Nasal route continuous. Wean as tolerated: Sats >89% Active sacubitril-va lsartan (ENTRESTO) 24-26 MG tablet Take 1 tablet by mouth 2 (two) times daily. 180 tablet 1 025 2024 Discontinued(S top Taking at Discharge) furosemide (LASIX) 20 MG tablet Take 1 tablet (20 mg total) by mouth daily. NEW DOSE 08/03/2024 90 tablet 1 025 2024 Discontinued(S top Taking at Discharge) albuterol sulfate HFA 108 (90 Base) MCG/ACT inhaler Inhale 2 puffs into the lungs every 6 (six) hours as needed for Wheezing. 18 g 025 2024 Discontinued azithromycin (ZITHROMAX) 250 MG tablet Take 2 tablets by mouth on day one then 1 daily for four days. 6 tablet 2024 Discontinued(S top Taking at Discharge) dextromethorp quan-guaiFENes in ER (MUCINEX DM) 30-600 MG TABLET SR 12 HR 12 hr tablet Take 1 tablet by mouth every 12 (twelve) hours as needed (Congestion). 2024 Discontinued guaiFENesin ER (MUCINEX) 600 MG 12 hr tabletIndicat ions:congesti on Take 1 tablet (600 mg total) by mouth 2 (two) times daily for 15 days. Indications: congestion 30 tablet 025 2024 Active Problems Problem Noted Date Diagnosed Date Hypoxic respiratory failure ([facility]) Acute on chronic respiratory failure with hypoxemia ([facility]) 09/19/2024 Ascending aortic aneurysm 12/01/2023 CKD (chronic kidney disease) 08/20/2021 Acute on chronic combined sy stolic (congestive) and diastolic (congestive) heart failure ([facility]) 05/16/2021 Acute exacerbation of CHF (c ongestive heart failure) ([facility]) 05/15/2021 Nonrheumatic aortic valve stenosis 02/03/2021 Pulmonary hypertension ([facility]) 021 Chronic combined systolic an d diastolic congestive heart failure ([facility]) 01/16/2021 Systolic dysfunction, left ventricle 12/01/2020 Light chain disease, 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 Anemia 04/14/2019 Primary osteoarthritis of right shoulder 019 Other obesity 10/05/2018 Aortic regurgitation 10/05/2018 S/P lumbar laminectomy 09/02/2018 ASHD (arteriosclerotic heart disease) 08/18/2018 Hypertensive heart disease w ith chronic diastolic congestive heart failure ([facility]) 08/18/2018 S/P vertebroplasty 05/02/2018 Age-related osteoporosis wit hout current pathological fracture 04/22/2018 Compression fracture of lumb ar vertebra, non-traumatic ([facility]) 04/21/2018 Abnormal imaging of thyroid 04/15/2018 Thoracic ascending aortic aneurysm 04/15/2018 Pulmonary nodule, right 04/15/2018 Arthritis 04/01/2018 A-fib ([facility]) Hypertension Compression fracture of body of thoracic vertebra ([facility]) Resolved Problems Problem Noted Date Diagnosed Date Resolved Date Toenail fungus 10/12/2018 05/18/2020 Lumbar stenosis with neurogenic claudication 9 05/18/2020 Sacroiliitis 06/02/2018 05/18/2020 Spinal stenosis of lumbar re gion with neurogenic claudication 06/02/2018 05/18/2020 Inflammation of sacroiliac joint 05/06/2018 05/18/2020 Chronic pain 04/15/2018 05/18/2020 Encounters Date Type Department Care Team Description 10/19/2024 Patient Outreach [facility] [place] [address], [address] [place] [address] Carline Tinsley, RN Hospital Follow Up (Inpatient f/u w/[facility]--UPDATED 10/28) 10/19/2024 Patient Outreach [facility] [place] [address], [address] [place] [phone] Fela Zaidi MD Pre-visit Gap Closure 10/11/2024 Patient Outreach [facility] [place] [address], [address] [place] [phone] Carline Tinsley RN Hospital Follow Up (Transferred to [facility] ([facility] 09/19-09/30;[facility] 09/30-10/08; [facility] 10/08-present)) 10/04/2024 Telephone [facility] [place] [address], [address] [place] [phone] Fela Zaidi MD TCM (Dc'd from [facility] on 09/30/24 -dx: Acute on chronic respiratory failure with hypoxemia) 09/30/2024 2:21 PM CDT - 10/08/2024 10:53 AM CDT Hospital Encounter [facility] [address] [place] [address] Sarbjit Dennis MD Poettker, Amber L, PA-C Engele, Christopher, APRN Discharge Disposition: Jail Facility 09/30/2024 Travel 09/23/2024 Telephone [facility] [address] [place] [address] Dominga Aguilar, channel cementer insole machine (Swing bed referral to B/[facility] from [facility]/) 09/22/2024 10:15 AM CDT Home Care Visit [facility] [address] [place] [address] [place] [address] Clarissa Oneill, ADMITTING OFFICER VISIT 09/21/2024 Telephone [facility] [address] [place] [address] [place] [address] Fela Zaidi MD Advise 09/20/2024 Patient Outreach [facility] [place] [address], [address] [place] [address] Carline Tinsley RN Hospital Follow Up ([facility] admission notification) 09/19/2024 3:07 PM CDT - 09/30/2024 1:22 PM CDT Hospital Encounter [facility] [place] [address] Torsten Casas MD Tran, MD Bladimir Carbone, MD Kaylin Burns Payton K, MD Kruse, Cristobal Yung, DO Christian, Rhys García MD Breathing Problem; Weakness Discharge Disposition: Swing Bed 09/19/2024 Travel 08/03/2024 Telephone [facility] [place] [address] Mabel Vasquez MD Refill Request (ELIQUIS ENTRESTO SPIRONOLACTONE CARVEDILOL FUROSEMIDE) 08/03/2024 Telephone [facility], [address] [address] Mabel Vasquez MD Medication (FUROSEMIDE) from Last 3 Months Immunizations Immunization Administration Dates Next Due Fluzone 6 Months+ Quad (0.5 mL Prefilled Syringe) 05/17/2021 Fluzone High Dose (IIV, triv alent, 0.5mL) 10/02/2024 Fluzone High Dose - >Age 65 (Prefilled Syringe) 05/18/2020 PFIZER COVID-19 (ORIGINAL FORMULATION, PURPLE CAP) mRNA, LNP-S, PF, 30 MCG/0.3 ML DOSE 05/30/2021,10/12/2020,09/21/2020 Pneumococcal (Prevnar 13) 10/02/2024,(Deferred: Patient Refused) Family History Medical History Relation Comments Heart Disease Father possible mi Hypertension Mother Osteoporosis Mother Relation Status Comments Daughter Alive Father (Age 89) patient does n ot know cause of , may have been ID Mother (Age 87) of natura l causes Son Alive Social History Tobacco Use Types Packs/Day Years Used Date Smoking Tobacco: Former Cigarettes 0.3 20 1 973 - 1992 Passive Smoke Exposure: Never Smokeless Tobacco: Never Tobacco Cessation:Counseling Given: Not Answered Comments:N/A Alcohol Use Standard Drinks/Week Comments No 0 (1 standard drink = 0.6 oz pur e alcohol) B1300 Health Literacy Answer Date Recor ded How often do you need to hav e someone help you when you read instructions, pamphlets, or other written material from your doctor or pharmacy? Often 09/30/2024 [facility] Utilities Answer Date Recorded In the past 12 months has e [employer], gas, oil, or water [employer] threatened to shut off services in your [...] often do you attend chur ch or gnosticist services? 1 to 4 times per year 09/30/2024 Do you belong to any clubs o r organizations such as restorationism groups, unions, fraternal or athletic groups, or [...] Recorded Patient Health Questionnaire-2 Score 0 09/30/2024 [facility] of Occupat ional Health - Occupational Stress [...] money to buy more. Never true 10/01/19 Within the past 12 months, t he [...] any time in the past 12 m [facility], were you homeless or living in a nursing home (including now)? No 09/19/2024 Comments No Sex and Gender Information Value Date Recorded Sex Assigned at Female 09/19/2024 3:45 PM CDT Legal Sex Female 9:19 PM CDT Gender Identity Female 09/30/2024 2:31 PM CDT Sexual Orientation Straight 09/30/2024 2: 31 PM CDT Occupation Industry Job Start Date Job End Date Not on file Not on file Not on file Not on file Last Filed Vital Signs Vital Sign Reading Time Taken Comments Blood Pressure 109/58 10/08/2024 7:00 AM CDT Pulse 81 10/08/2024 7:00 AM CDT Temperature 37.1 C (98.7 F) 10/08/2024 7:00 AM CDT Respiratory Rate 17 10/08/2024 7:00 AM CDT Oxygen Saturation 95% 10/08/2024 7:00 AM CDT Inhaled Oxygen Concentration - - Weight 67.4 kg (148 lb 11.2 oz) 10/08/2024 5:26 AM CDT Height 160.4 cm (5' 3.15 ) 09/30/2024 4:46 PM CD T Body Mass Index 26.22 09/30/2024 4:46 PM CDT Plan of Treatment Upcoming Encounters Date Type Department Care Team (Late st Contact Info) Description 11/15/2024 12:30 PM CDT Office Visit [facility] [place], [place] [phone] Mabel Vasquez MD [address] [facility] [address] [place], [place] [phone] Health Maintenance Due Date Last Done Comments ASCVD Statin 1935 DTaP, Tdap and Td Vaccines ( 1 - Tdap) 1954 Zoster Vaccines (1 of 2) 1985 Annual Medicare Wellness Visit 2000 RSV Immunization or 60+ Years (1 - 1-dose 75+ series) 2010 ASCVD LDL 05/16/2022 05/16/2021 COVID-19 Vaccine (4 - 2023-2 5 season) 2024 05/30/2021, 10/12/2020, 09/21/2020 Pneumococcal Vaccine: 50+ Years (2 of 2 - PPSV23) 11/27/2024 10/02/2024 PHQ-2 (Physician [place]) Completed 09/30/2024 Meningococcal B Vaccine Aged Out No l onger eligible based on patient's age to complete this topic Meningococcal Vaccine Aged Out No bolivar lorene eligible based on patient's age to complete this topic RSV Immunizations Under 20 Months Aged Out No longer eligible b ased on patient's age to complete this topic Goals Goal Patient Goal Type Associated Problems Recent Progress Patient-Stated? Author Consistently take medications as Prescribed General On track(2020 2:45 PM HIDE CURER) No Carline Tinsley RN Note: 05/24/21: Patient is managing her medications and taking them as prescribed. Establish Plan for Symptom Monitoring r/t CHF and hyponatremia General On track(2020 2:45 PM HIDE CURER) Carlien Damon RN Note: 05/24/21: Breathing improved. Some dyspnea on exertion. No complaints of edema. No weights reported.daughter to assist patient in setting up scale and coming up with a plan to weigh each day. Will report wt gain >3 pounds overnight or >5 pounds in a week. Health - patient able to perform ADLs independently Lifestyle No Ada Bonds, TOMAS[employer] Medical Devices Implanted Type Area Gaming Table Operator Device Identifier Shelf Expiration Date Model / Serial / Lot Vertaplex Cement Implanted:Qty: 1 on 05/01/2018 by Eugene Leo MD at [facility] N/A: Spine Lumbar [employer]IRO [employer]ELIA 03/13/2020 [id number] / / [id number] Vertaplex Cement Implanted:Qty: 2 on 05/01/2018 by Eugene Leo MD at [facility] N/A: Spine Lumbar [employer]EL[employer] 09/10/2020 [id number] / / [id number] Procedures Procedure Name Priority Date/Time Associated Diagnosis Comments BASIC METABOLIC PANEL Routine 10/08/2024 4:23 AM CDT CBC, AUTO, NO DIFF Routine 10/08/2024 4: 23 AM CDT BASIC METABOLIC PANEL Routine 10/05/2024 5:12 AM CDT CBC, AUTO, NO DIFF Routine 10/05/2024 5: 12 AM CDT MAGNESIUM Routine 10/03/2024 4:[address] HEAD WO CON STAT 10/02/2024 6:[address] CERV SPINE WO CON STAT 10/02/2024 6:56 PM CDT XR KNEE LT 3V Today 10/02/2024 6:56 PM CDT XR PELVIS 2V Today 10/02/2024 6:56 PM CDT XR SHOULDER RT MIN 2V Today 10/02/2024 6:56 PM CDT CBC, AUTO, NO DIFF Routine 10/02/2024 4: 15 AM CDT BASIC METABOLIC PANEL Routine 10/02/2024 4:15 AM CDT MAGNESIUM Routine 10/02/2024 4:15 AM CDT CBC, AUTO, NO DIFF Routine 10/01/2024 4: 09 AM CDT BASIC METABOLIC PANEL Routine 10/01/2024 4:09 AM CDT MAGNESIUM Routine 10/01/2024 4:09 AM CDT CBC, AUTO, NO DIFF Routine 09/30/2024 5: 37 AM CDT BASIC METABOLIC PANEL Routine 09/30/2024 5:37 AM CDT MAGNESIUM Routine 09/30/2024 5:37 AM CDT CBC, AUTO, NO DIFF Routine 09/29/2024 9: 33 AM CDT BASIC METABOLIC PANEL Routine 09/29/2024 9:33 AM CDT MAGNESIUM Routine 09/29/2024 5:39 AM CDT BASIC METABOLIC PANEL Routine 09/28/2024 5:53 AM CDT CBC W/DIFF AUTOMATED Routine 09/28/2024 5:53 AM CDT MAGNESIUM Routine 09/28/2024 5:53 AM CDT BASIC METABOLIC PANEL Routine 09/27/2024 6:28 AM CDT CBC W/DIFF AUTOMATED Routine 09/27/2024 6:28 AM CDT MAGNESIUM Routine 09/27/2024 6:28 AM CDT BASIC METABOLIC PANEL Routine 09/26/2024 5:01 AM CDT CBC W/DIFF AUTOMATED Routine 09/26/2024 5:01 AM CDT MAGNESIUM Routine 09/26/2024 5:01 AM CDT CBC W/DIFF AUTOMATED Routine 09/25/2024 5:50 AM CDT BASIC METABOLIC PANEL Routine 09/25/2024 5:50 AM CDT MAGNESIUM Routine 09/25/2024 5:50 AM CDT COMPREHENSIVE METABOLIC PANEL Routine 09/24/2024 5:41 AM CDT CBC W/DIFF AUTOMATED Routine 09/24/2024 5:41 AM CDT C-REACTIVE PROTEIN Routine 09/24/2024 5: 41 AM CDT PROCALCITONIN (PCT) Routine 09/24/2024 5 :41 AM CDT MAGNESIUM Routine 09/24/2024 5:41 AM CDT XR CHEST PORTABLE STAT 09/23/2024 1:1 2 PM CDT BLOOD GAS, ARTERIAL LAB Routine 09/23/2024 11:44 AM CDT MAGNESIUM Routine 09/23/2024 5:29 AM CDT BASIC METABOLIC PANEL Routine 09/23/2024 5:29 AM CDT CBC W/DIFF AUTOMATED Routine 09/23/2024 5:29 AM CDT PROCALCITONIN (PCT) Routine 09/23/2024 5 :26 AM CDT MAGNESIUM Routine 09/22/2024 6:00 AM CDT BASIC METABOLIC PANEL Routine 09/22/2024 6:00 AM CDT CBC W/DIFF AUTOMATED Routine 09/22/2024 6:00 AM CDT PROCALCITONIN (PCT) Routine 09/21/2024 7 :24 AM CDT MAGNESIUM Routine 09/21/2024 7:24 AM CDT BASIC METABOLIC PANEL Routine 09/21/2024 7:24 AM CDT CBC W/DIFF AUTOMATED Routine 09/21/2024 7:24 AM CDT PROCALCITONIN (PCT) Routine 09/20/2024 6 :13 AM CDT MAGNESIUM Routine 09/20/2024 6:13 AM CDT COMPREHENSIVE METABOLIC PANEL Routine 09/20/2024 6:13 AM CDT CBC W/DIFF AUTOMATED Routine 09/20/2024 6:13 AM CDT RESPIRATORY PCR PANEL 2 STAT 09/19/2024 5:58 PM CDT HC URINALYSIS AUTO W/O MICRO STAT 09/19/2024 5:02 PM CDT XR CHEST PORTABLE STAT 09/19/2024 3:3 2 PM CDT COMPREHENSIVE METABOLIC PANEL STAT 09/19/2024 3:14 PM CDT CBC W/DIFF AUTOMATED STAT 09/19/2024 3:14 PM CDT PROCALCITONIN (PCT) Routine 09/19/2024 3 :13 PM CDT TSH W/REFLEX STAT 09/19/2024 3:13 PM CDT PRO-BRAIN NATRIURETIC PEPTIDE STAT 09/19/2024 3:13 PM CDT TROPONIN, QUANT STAT 09/19/2024 3:13 PM CDT ECG 12-LEAD STAT 09/19/2024 2:21 PM CDT LIPID PANEL Routine 05/16/2021 4:21 AM CDT from Last 3 Months or Most Recently Relevant to Health Maintenance Results * (ABNORMAL) BASIC METABOLIC PANEL (10/08/2024 4:23 AM CDT) Only the most recent of13 resultswithin the time period is included. GLUCOSE 133(H) 70 - 99 MG/DL 10/08/2024 6:09 AM CDT [facility] BUN 22(H) 7 - 18 MG/DL 10/08/2024 6:09 AM CDT [facility] CREATININE S/P/B 0.70 0.55 - 1.02 MG/DL 10/08/2024 6:09 AM T [facility] SODIUM S/P/B 129(L) 136 - 145 MMOL/L 10/08/2024 6:09 AM [facility] POTASSIUM S/P/B 3.6 3.5 - 5.1 MMOL/L 10/08/2024 6:09 AM [facility] CHLORIDE S/P/B 88(L) 100 - 108 MMOL/L 10/08/2024 6:09 AM [facility] CO2 42.8(HH) 21 - 32 MMOL/L 10/08/2024 6:09 AM [facility] Comment: Critical Result(s) Called at: 05:44:23 on 10/08/2024 by: CAROL ANN HO to and read back by: Nicolasa PEPPER CALCIUM S/P/B 10.1 8.5 - 10.1 MG/DL 10/08/2024 6:09 AM [facility] ANION GAP NOT CALCULATED 5 - 15 MMOL/L 10/08/2024 6:09 AM [facility] BUN CREATININE RATIO 31.4(H) 6 - 26 10/08/2024 6:09 AM [facility] GFR ESTIMATE 83(L) >90 ML/MIN/1. 73 M2 10/08/2024 6:09 AM [facility] Comment: NOTE: eGFR is not calculated for patients <18 years of age. This is an estimated GFR calculation using the new CKD EPI creatinine equation without race and so does not require a correction factor for race. This estimated GFR should not be used for calculating drug doses. 10/08/2024 4:23 AM CDT Christopher Engele WINDOW COVERING SALES CONSULTANT LABORATORY Final Re sult [facility] [address] [address], [place] [phone] * (ABNORMAL) CBC, AUTO, NO DIFF (10/08/2024 4:23 AM CDT) Only the most recent of6 resultswithin the time period is included. WBC 10.93 4.50 - 11.00 x10'3/uL 10/08/2024 4:39 AM CDT [facility] RBC 3.36(L) 4.20 - 5.40 x10'6/uL 10/08/2024 4:39 AM CDT [facility] HGB 11.0(L) 12.0 - 16.0 G/DL 10/08/2024 4:39 AM CDT [facility] HCT 32.5(L) 38.0 - 48.0 % 10/08/2024 4:39 AM CDT [facility] MCV 96.7 81.0 - 99.0 FL 10/08/2024 4:39 AM CDT [facility] MCH 32.7(H) 27.0 - 31.0 PG 10/08/2024 4:39 AM CDT [facility] MCHC 33.8 32.0 - 36.0 G/DL 10/08/2024 4:39 AM CDT [facility] RDW 12.2 11.5 - 14.5 % 10/08/2024 4:39 AM CDT [facility] PLT 305 130 - 400 x10'3/uL 10/08/2024 4:39 AM CDT [facility] MPV 9.2(L) 9.3 - 12.2 FL 10/08/2024 4:39 AM CDT [facility] 10/08/2024 4:23 AM CDT us Felipe Fung APRN LABORATORY Final Re sult [facility] [address] [place] [address], [place] [phone] * MAGNESIUM (10/03/2024 4:39 AM CDT) Only the most recent of14 resultswithin the time period is included. MAGNESIUM 1.8 1.8 - 2.4 MG/DL 10/03/2024 5:06 AM CDT [facility] 10/03/2024 4:39 AM CDT Rhys Christian MD LABORATORY Final R esult Performing Organization Address City/[facility]/ZIP Co de Phone Number [facility] [address] [place] [address], [place] [phone] * CT HEAD WO CON (10/02/2024 6:56 PM CDT) Anatomical Region Laterality Modality Head Computed Tomogra phy 10/02/2024 6:57 PM CDT Impressions 10/02/2024 6:58 PM CDT IMPRESSION: Senescent changes. No evidence of acute injury Ordered By: ISABELA ORDOÑEZ Interpreted By: Raffi Vergara MD, 10/02/2024 6:57 PM Narrative 10/02/2024 6:58 PM CDT [address] [address] [address] HEAD WITHOUT CONTRAST Exam date: 10/02/2024 6:57 PM Clinical history: Pain after fall Technique: 3 mm collimated axial images of the head were obtained without contrast. A dose lowering technique was used for this procedure, which may include, but is not limited to, dose reduction technique, automated exposure control, the use of iterative reconstruction, and ALARA (As Low As Reasonably Achievable) / Image Gently techniques. Comparison: reviewed without prior studies available for comparison. FINDINGS: Images of the head demonstrate no evidence of acute or chronic intracranial hemorrhage. No masses or mass effects are seen. The ventricles and sulci are symmetric but larger than normal consistent with global atrophy. There is no evidence of midline shift. Moderate chronic small vessel ischemic changes are noted within the periventricular white matter. No extra-axial fluid collections are noted Bone windows reveal the paranasal sinuses and mastoid air cells to appear clear. There is no evidence of fracture. Procedure Note Raffi Vergara MD - 10/02/2024 [facility] [address] [place] [address] CT HEAD WITHOUT CONTRAST Exam date: 10/02/2024 6:57 PM Clinical history: Pain after fall Technique: 3 mm collimated axial images of the head were obtained withoutcontrast. A dose lowering technique was used for this procedure, which mayinclude, but is not limited to, dose reduction technique, automatedexposure control, the use of iterative reconstruction, and ALARA (As LowAs Reasonably Achievable) / Image Gently techniques. Comparison: reviewed without prior studies available for comparison. FINDINGS: Images of the head demonstrate no evidence of acute or chronicintracranial hemorrhage. No masses or mass effects are seen. Theventricles and sulci are symmetric but larger than normal consistent withglobal atrophy. There is no evidence of midline shift. Moderate chronicsmall vessel ischemic changes are noted within the periventricular whitematter. No extra-axial fluid collections are noted Bone windows reveal the paranasal sinuses and mastoid air cells to appearclear. There is no evidence of fracture. IMPRESSION: Senescent changes. No evidence of acute injury Ordered By: ISABELA ORDOÑEZ Interpreted By: Raffi Vergara MD, 10/02/2024 6:57 PM us Isabela Ordoñez PA-C CT Final Resu lt * CT CERV SPINE WO CON (10/02/2024 6:56 PM CDT) Anatomical Region Laterality Modality Spine Computed Tomogra phy 10/02/2024 7:03 PM CDT Impressions 10/02/2024 7:04 PM CDT IMPRESSION: 1.Degenerative changes. No evidence of acute injury Ordered By: ISABELA ORDOÑEZ Interpreted By: Raffi Vergara MD, 10/02/2024 7:03 PM Narrative 10/02/2024 7:04 [place] [address] CT CERVICAL SPINE WITHOUT CONTRAST CLINICAL HISTORY: Pain after fall TECHNIQUE: Dynamic helical images of the cervical spine were obtained in the axial plane without contrast. Sagittal and coronal views were reconstructed from the axial data set. A dose lowering technique was used for this procedure, which may include, but is not limited to, dose reduction technique, automated exposure control, the use of iterative reconstruction, and ALARA (As Low As Reasonably Achievable) / Image Gently techniques. Comparison: No prior studies are available for comparison. FINDINGS: The obtained images demonstrate no evidence of fracture or subluxation. The craniocervical junction appears normal. The vertebral body heights are symmetric and within normal limits. There is chronic loss of intervertebral disc height noted at the C3-C4 and especially at C5-C6 with associated degenerative changes including anterior and small posterior protruding osteophytes. Extensive degenerative changes are noted within the atlantoaxial joint. The facet joints are normally aligned bilaterally. The spinous processes appear normal. Soft tissue windows reveal the central canal to be widely patent. No paraspinal fluid collections are evident. The visualized portion of the airway and esophagus are within normal limits. No adenopathy is seen within the neck. The lung apices are clear. Extensive vascular calcifications are noted within the carotid arteries Procedure Note Raffi Vergara MD - 10/02/[address] [place] [id number] CERVICAL SPINE WITHOUT CONTRAST CLINICAL HISTORY: Pain after fall TECHNIQUE: Dynamic helical images of the cervical spine were obtained inthe axial plane without contrast. Sagittal and coronal views werereconstructed from the axial data set. A dose lowering technique was usedfor this procedure, which may include, but is not limited to, dosereduction technique, automated exposure control, the use of iterativereconstruction, and ALARA (As Low As Reasonably Achievable) / Image Gentlytechniques. Comparison: No prior studies are available for comparison. FINDINGS: The obtained images demonstrate no evidence of fracture or subluxation.The craniocervical junction appears normal. The vertebral body heights aresymmetric and within normal limits. There is chronic loss ofintervertebral disc height noted at the C3-C4 and especially at C5-C6 withassociated degenerative changes including anterior and small posteriorprotruding osteophytes. Extensive degenerative changes are noted withinthe atlantoaxial joint. The facet joints are normally aligned bilaterally.The spinous processes appear normal. Soft tissue windows reveal the central canal to be widely patent. Noparaspinal fluid collections are evident. The visualized portion of theairway and esophagus are within normal limits. No adenopathy is seenwithin the neck. The lung apices are clear. Extensive vascularcalcifications are noted within the carotid arteries IMPRESSION: 1.Degenerative changes. No evidence of acute injury Ordered By: ISABELA ORDOÑEZ Interpreted By: Raffi Vergara MD, 10/02/2024 7:03 PM Isabela Ordoñez PA-C CT Final Resu lt * XR SHOULDER RT MIN 2V (10/02/2024 6:56 PM CDT) Anatomical Region Laterality Modality Shoulder Radiographic Jessika ging 10/02/2024 7:02 PM CDT Impressions 10/02/2024 7:02 PM CDT IMPRESSION: No acute findings Ordered By: ISABELA ORDOÑEZ Interpreted By: Raffi Vergara MD, 10/02/2024 7:02 PM Narrative 10/02/2024 7:02 [place] [address] 2 VIEWS OF THE RIGHT SHOULDER CLINICAL HISTORY: Pain COMPARISON: None 2 views of the right shoulder demonstrate the bony elements to be intact. There is no evidence of fracture or dislocation. The surrounding soft tissues appear normal. Procedure Note Raffi Vergara MD - 10/02/2024 [place] [address] 2 VIEWS OF THE RIGHT SHOULDER CLINICAL HISTORY: Pain COMPARISON: None 2 views of the right shoulder demonstrate the bony elements to be intact.There is no evidence of fracture or dislocation. The surrounding softtissues appear normal. IMPRESSION: No acute findings Ordered By: ISABELA ORDOÑEZ Interpreted By: Raffi Vergara MD, 10/02/2024 7:02 PM us Isabela Ordoñez PA-C GENERAL IMAGING Final Resu lt * XR PELVIS 2V (10/02/2024 6:56 PM CDT) Anatomical Region Laterality Modality Pelvis Radiographic Jessika ging 10/02/2024 7:02 PM CDT Impressions 10/02/2024 7:03 PM CDT IMPRESSION: No acute findings Ordered By: ISABELA ORDOÑEZ Interpreted By: Raffi Vergara MD, 10/02/2024 7:02 PM Narrative 10/02/2024 7:03 [place] [address] 2 VIEWS OF THE PELVIS Clinical History: Pain after fall Comparison: None 2 views of the pelvis demonstrate the bony elements to be intact. There is no evidence of fracture or dislocation. 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 The hardware resides in the expected position. There is no evidence of component failure or component loosening. The surrounding soft tissues appear normal Procedure Note Raffi Vergara MD - 10/02/2024 [place] [address] 2 VIEWS OF THE PELVIS Clinical History: Pain after fall Comparison: None 2 views of the pelvis demonstrate the bony elements to be intact. There isno evidence of fracture or dislocation. Postsurgical changes of left hiparthroplasty are noted. The hardware resides in the expected position.There is no evidence of component failure or component loosening. Thesurrounding soft tissues appear normal IMPRESSION: No acute findings Ordered By: ISABELA ORDOÑEZ Interpreted By: Raffi Vergara MD, 10/02/2024 7:02 PM Isabela Ordoñez PA-C GENERAL IMAGING Final Resu lt * XR KNEE LT 3V (10/02/2024 6:56 PM CDT) Anatomical Region Laterality Modality Knee Radiographic Jessika ging 10/02/2024 7:01 PM CDT Impressions 10/02/2024 7:02 PM CDT IMPRESSION: No acute findings Ordered By: ISABELA ORDOÑEZ Interpreted By: Raffi Vergara MD, 10/02/2024 7:01 PM Narrative 10/02/2024 7:02 [place] [address] 3 VIEWS OF THE LEFT KNEE Clinical History: Pain Comparison: None 3 views of the left knee demonstrate the bony elements to be intact. There is no evidence of fracture or dislocation. The surrounding soft tissues appear normal. Complete loss of joint space is noted in both medial and lateral compartments. No effusion is seen Procedure Note Raffi Vergara MD - 10/02/2024 [place] [id number] 3 VIEWS OF THE LEFT KNEE Clinical History: Pain Comparison: None 3 views of the left knee demonstrate the bony elements to be intact. Thereis no evidence of fracture or dislocation. The surrounding soft tissuesappear normal. Complete loss of joint space is noted in both medial and lateralcompartments. No effusion is seen IMPRESSION: No acute findings Ordered By: ISABELA ORDOÑEZ Interpreted By: Raffi Vergara MD, 10/02/2024 7:01 PM us Isabela Ordoñez PA-C GENERAL IMAGING Final Resu lt * (ABNORMAL) CBC W/DIFF AUTOMATED (09/28/2024 5:53 AM CDT) Only the most recent of10 resultswithin the time period is included. WBC 6.76 4.5 - 11.0 x10'3/uL 09/28/2024 7:43 AM CDT [facility] RBC 3.78(L) 4.20 - 5.40 x10'6/uL 09/28/2024 7:43 AM CDT [facility] HGB 12.5 12.0 - 16.0 G/DL 09/28/2024 7:43 AM CDT [facility] HCT 37.6(L) 38.0 - 48.0 % 09/28/2024 7:43 AM CDT [facility] MCV 99.5(H) 81.0 - 99.0 FL 09/28/2024 7:43 AM CDT [facility] MCH 33.1(H) 27.0 - 31.0 PG 09/28/2024 7:43 AM CDT [facility] MCHC 33.2 32.0 - 36.0 G/DL 09/28/2024 7:43 AM CDT [facility] RDW 12.9 11.5 - 14.5 % 09/28/2024 7:43 AM CDT [facility] PLT 249 130 - 400 x10'3/uL 09/28/2024 7:43 AM CDT [facility] MPV 9.8 9.3 - 12.2 FL 09/28/2024 7:43 AM CDT [facility] DIFFERENTIAL TYPE AUTOMATED DIFFERENTIAL 09/28/2024 7:43 AM CDT [facility] NEUTROPHILS % 66.0 % 09/28/2024 7:43 AM CDT [facility] LYMPHOCYTES % 17.9 % 09/28/2024 7:43 AM CDT [facility] MONOCYTES % 10.7 % 09/28/2024 7:43 AM CDT [facility] EOSINOPHILS 4.7 % 09/28/2024 7:43 AM CDT [facility] BASOPHILS 0.4 % 09/28/2024 7:43 AM CDT [facility] IMMATURE GRANS % 0.3 % 09/29/19 7:43 AM CDT [facility] ABS. NEUTROPHILS 4.46 1.80 - 7.70 x10'3/uL 09/28/2024 7:43 AM CDT [facility] ABS. LYMPHOCYTES 1.21 1.00 - 4.80 x10'3/uL 09/28/2024 7:43 AM CDT [facility] ABS. MONOCYTES 0.72 0.24 - 0.86 x10'3/uL 09/28/2024 7:43 AM CDT [facility] ABS. EOSINOPHILS 0.32 0.04 - 0.36 x10'3/uL 09/28/2024 7:43 AM CDT [facility] ABS. BASOPHILS 0.03 0.01 - 0.08 x10'3/uL 09/28/2024 7:43 AM CDT [facility] ABS. IMMATURE GRANULOCYTES 0.02 0.00 - 0.49 x10'3/uL 09/28/2024 7:43 AM CDT [facility] 09/28/2024 5:53 AM CDT Cristobal Dilshad Robert LABORATORY Final Res ult Performing Organization Address City/[facility]/ZIP Co de Phone Number [facility] [address] [place] [address], [place] [phone] * PROCALCITONIN (PCT) (09/24/2024 5:41 AM CDT) Only the most recent of5 resultswithin the time period is included. Procalcitonin <0.05 0.00 - 0.49 NG/ML 09/24/2024 7:53 AM CDT [facility] 09/24/2024 5:41 AM CDT Marielos Powers MD LABORATORY Final Result Performing Organization Address City/[facility]/ZIP Co de Phone Number [facility] [address] [place] [address], [place] [phone] * (ABNORMAL) COMPREHENSIVE METABOLIC PANEL (09/24/2024 5:41 AM CDT) Only the most recent of3 resultswithin the time period is included. GLUCOSE 95 70 - 99 MG/DL 09/24/2024 7:34 AM CDT [facility] BUN 18 7 - 18 MG/DL 09/24/2024 7:34 AM CDT [facility] CREATININE S/P/B 0.67 0.55 - 1.02 MG/DL 09/24/2024 7:34 AM CDT [facility] SODIUM S/P/B 133(L) 136 - 145 MMOL/L 09/24/2024 7:34 AM CDT [facility] POTASSIUM S/P/B 4.0 3.5 - 5.1 MMOL/L 09/24/2024 7:34 AM T [facility] CHLORIDE S/P/B 91(L) 97 - 115 MMOL/L 09/24/2024 7:34 AM T [facility] CO2 39.5(H) 21 - 32 MMOL/L 09/24/2024 7:34 AM T [facility] CALCIUM S/P/B 8.9 8.5 - 10.1 MG/DL 09/24/2024 7:34 AM T [facility] BILIRUBIN TOTAL S/P/B 0.8 0.2 - 1.2 MG/DL 09/24/2024 7:34 AM T [facility] Comment: THIS ASSAY IS NOT RECOMMENDED FOR PATIENTS UNDERGOING TREATMENT WITH ELTROMBOPAG DUE TO THE POTENTIAL FOR FALSELY ELEVATED RESULTS. TOTAL PROTEIN S/P/B 6.6 6.4 - 8.2 G/DL 09/24/2024 7:34 AM T [facility] ALBUMIN S/P/B 2.6(L) 3.4 - 5.0 G/DL 09/24/2024 7:34 AM T [facility] AST 27 15 - 37 U/L 09/24/2024 7:34 AM T [facility] ALT 18 14 - 55 U/L 09/24/2024 7:34 AM T [facility] ALKALINE PHOSPHATASE S/P/B 40(L) 50 - 136 U/L 09/24/2024 7:34 AM T [facility] ANION GAP 2.5 2 - 10 MMOL/L 09/24/2024 7:34 AM T [facility] BUN CREATININE RATIO 26.7(H) 6 - 26 09/24/2024 7:34 AM CDT [facility] A/G RATIO 0.6(L) 1.0 - 2.0 RATIO 09/24/2024 7:34 AM CDT [facility] GFR ESTIMATE 83(L) >90 ML/MIN/1.7 3 M2 09/24/2024 7:34 AM CDT [facility] Comment: NOTE: eGFR is not calculated for patients <18 years of age or gender unknown. This is an estimated GFR calculation using the new CKD EPI creatinine equation without race and so does not require a correction factor for race. This estimated GFR should not be used for calculating drug doses. 09/24/2024 5:41 AM CDT us Mareilos Powers MD LABORATORY Final Result [facility] [address] [place] [address], [place] [phone] * (ABNORMAL) C-REACTIVE PROTEIN (09/24/2024 5:41 AM CDT) C-REACTIVE PROTEIN 0.51(H) <0.29 mg/dL 09/24/2024 1:08 PM CDT [facility] 09/24/2024 5:41 AM CDT us Marielos Powers MD LABORATORY Final Result [facility] [address] [place] [address], [place] [phone] * XR CHEST PORTABLE (09/23/2024 1:12 PM CDT) Only the most recent of2 resultswithin the time period is included. Anatomical Region Laterality Modality Chest Radiographic Jessika ging 09/23/2024 1:23 PM CDT Impressions 09/23/2024 1:32 PM CDT IMPRESSION: 1. Increasing opacity in the left lower lung consistent with infiltrate, atelectasis, and pleural fluid. 2. Subsegmental atelectasis in the right lower lung with probable very small right pleural effusion. Ordered By: MARIELOS POWERS Interpreted By: Octavio Newman, 09/23/2024 1:23 PM Narrative 09/23/2024 1:32 PM [address] [address] IMAGING STUDIES: XR CHEST PORTABLE DATE: 09/23/2024 11:53 AM HISTORY: worsening hypoxia, sounds worse; low BP 89-year-old female. Telemetry patient. Worsening hypoxia. Worsening lung sounds. Hypotension. COMPARISON: Chest portable 09/19/2024 and 03/20/2024. CTA chest 08/04/2020. DISCUSSION: Portable AP upright view of the chest. Cardiomegaly. No acute pulmonary vascular congestion. Aortic atherosclerotic calcification. Enlarged thoracic aorta with ascending aorta 4.7 x 4.[address] study Chronic lung disease with lung interstitial thickening and lung parenchymal scarring. Scarring greatest in the lower lungs. Infiltrate and atelectasis in the left lower lung with probable small left pleural effusion. Interval increased opacities in the left lower lung compared to 09/19/2024. Atelectasis in the right lower lung is increased since 09/19/2024. Probable very small right pleural effusion. No pneumothorax. Spinal curvature and degenerative changes. Prior cement injection within the lower thoracic spine and upper lumbar spine. Bilateral shoulder degenerative changes, right greater than left. Procedure Note Octavio Newman MD - 09/23/[address] [address] IMAGING STUDIES: XR CHEST PORTABLEDATE: 09/23/2024 11:53 AM HISTORY: worsening hypoxia, sounds worse; low BP 89-year-old female.Telemetry patient. Worsening hypoxia. Worsening lung sounds.Hypotension. COMPARISON: Chest portable 09/19/2024 and 03/20/2024. CTA chest 08/04/2020. DISCUSSION: Portable AP upright view of the chest. Cardiomegaly. No acute pulmonary vascular congestion. Aorticatherosclerotic calcification. Enlarged thoracic aorta with ascendingaorta 4.7 x 4.[address] study Chronic lung disease with lung interstitial thickening and lungparenchymal scarring. Scarring greatest in the lower lungs. Infiltrate andatelectasis in the left lower lung with probable small left pleuraleffusion. Interval increased opacities in the left lower lung compared to09/19/2024. Atelectasis in the right lower lung is increased since 09/19/2024.Probable very small right pleural effusion. No pneumothorax. Spinal curvature and degenerative changes. Prior cement injection withinthe lower thoracic spine and upper lumbar spine. Bilateral shoulderdegenerative changes, right greater than left. IMPRESSION: 1. Increasing opacity in the left lower lung consistent with infiltrate,atelectasis, and pleural fluid. 2. Subsegmental atelectasis in the right lower lung with probable verysmall right pleural effusion. Ordered By: MARIELOS POWERS Interpreted By: Octavio Newman, 09/23/2024 1:23 PM Marielos Powers MD GENERAL IMAGING Final Result * (ABNORMAL) ARTERIAL BLOOD GAS (09/23/2024 11:44 AM CDT) PH ARTERIAL 7.44 7.35 - 7.45 09/23/2024 1:12 PM CDT [facility] PCO2 63.0(H) 35.0 - 45.0 MMHG 09/23/2024 1:12 PM CDT [facility] PO2 109.0(H) 83.0 - 108.0 MMHG 09/23/2024 1:12 PM CDT [facility] TOTAL CO2 ARTERIAL 44.7(H) 19.0 - 24.0 MMOL/L 09/23/2024 1:12 PM CDT [facility] BASE EXCESS 15.5(H) 0.0 - 3.0 MMOL/L 09/23/2024 1:12 PM CDT [facility] O2 SATURATION 98 94.0 - 98.0 % 09/23/2024 1:12 PM CDT [facility] BICARB ARTERIAL 42.8(H) 21.0 - 28.0 MMOL/L 09/23/2024 1:12 PM CDT [facility] JONATHAN TEST JONATHAN TEST PERFORMED 09/23/2024 1:10 PM CDT [facility] O2 ADMIN ARTERIAL 36% 09/23/2024 1:10 PM CDT [facility] DRAW SITE ARTERIAL RIGHT BRACHIAL 09/23/2024 1:10 PM CDT [facility] 09/23/2024 11:4 4 AM CDT Marielos Powers MD LABORATORY Final Result [facility] [address] [place] [address], [place] [phone] * (ABNORMAL) RESPIRATORY PCR PANEL 2 (09/19/2024 5:58 PM CDT) ADENOVIRUS PCR (RESP) NOT DETECTED NOT DETECTED 09/19/2024 7:10 PM CDT [facility] CORONAVIRUS 229E PCR (RESP) NOT DETECTED NOT DETECTED 09/19/2024 7:10 PM CDT [facility] CORONAVIRUS HKU1 PCR (RESP) NOT DETECTED NOT DETECTED 09/19/2024 7:10 PM CDT [facility] CORONAVIRUS NL63 PCR (RESP) NOT DETECTED NOT DETECTED 09/19/2024 7:10 PM CDT [facility] CORONAVIRUS OC43 PCR (RESP) NOT DETECTED NOT DETECTED 09/19/2024 7:10 PM CDT [facility] METAPNEUMOVIRUS PCR (RESP) NOT DETECTED NOT DETECTED 09/19/2024 7:10 PM CDT [facility] RHINOVIRUS/ENTEROV IRUS PCR (RESP) NOT DETECTED NOT DETECTED 09/19/2024 7:10 PM CDT [facility] INFLUENZA A/H1-2009 PCR (RESP) DETECTED(A) NOT DETECTED 09/19/2024 7:10 PM CDT [facility] Comment:CALLED TO AND REPEAT ED BACK BY JULIA GÓMEZ RN [facility] (RESP) NOT DETECTED NOT DETECTED 09/19/2024 7:10 PM CDT [facility] PARAINFLUENZA 1 PCR (RESP) NOT DETECTED NOT DETECTED 09/19/2024 7:10 PM CDT [facility] PARAINFLUENZA 2 PCR (RESP) NOT DETECTED NOT DETECTED 09/19/2024 7:10 PM CDT [facility] PARAINFLUENZA 3 PCR (RESP) NOT DETECTED NOT DETECTED 09/19/2024 7:10 PM CDT [facility] PARAINFLUENZA 4 PCR (RESP) NOT DETECTED NOT DETECTED 09/19/2024 7:10 PM CDT [facility] RSV PCR (RESP) NOT DETECTED NOT DETECTED 09/19/2024 7:10 PM CDT [facility] B PARAPERTUSIS PCR (RESP) NOT DETECTED NOT DETECTED 09/19/2024 7:10 PM CDT [facility] BORDETELLA PERTUSSIS PCR (RESP) NOT DETECTED NOT DETECTED 09/19/2024 7:10 PM CDT [facility] CHLAMYDOPHILA PNEUMONIAE PCR (RESP) NOT DETECTED NOT DETECTED 09/19/2024 7:10 PM CDT [facility] MYCOPLASMA PNEUMONIAE PCR (RESP) NOT DETECTED NOT DETECTED 09/19/2024 7:10 PM CDT [facility] CORONAVIRUS SARS COV 2 PCR (RESP) NOT DETECTED NOT DETECTED 09/19/2024 7:10 PM CDT [facility] NASOPHARYNGEAL SWAB / Unknown 09/19/2024 5:58 PM CDT us Hammad Mattson MD MICROBIOLOGY - GENERAL ORDERABLE S Final Result [facility] [address] [place] [address], [place] [phone] * (ABNORMAL) URINALYSIS (09/19/2024 5:02 PM CDT) SPECIMEN TYPE URINE STRAIGHT CATH 09/19/2024 5:02 PM CDT [facility] COLOR (U) YELLOW 09/19/2024 5:12 PM CDT [facility] TRANSPARENCY CLEAR 09/19/2024 5:12 PM CDT [facility] SPECIFIC GRAVITY (U) 1.022 1.001 - 1.030 09/19/2024 5:12 PM CDT [facility] U PH 5.5 5.0 - 9.0 09/19/2024 5:12 PM CDT [facility] LEUKOCYTES (U) NEGATIVE NEGATIVE 09/19/2024 5:12 PM CDT [facility] NITRITES NEGATIVE NEGATIVE 09/19/2024 5:12 PM CDT [facility] PROTEIN RANDOM (U) 30(H) <30 MG/DL 09/19/2024 5:12 PM CDT [facility] GLUCOSE (U) NORMAL NORMAL MG/DL 09/19/2024 5:12 PM CDT [facility] KETONES MG/DL (U) NEGATIVE NEGATIVE MG/DL 09/19/2024 5:12 PM CDT [facility] UROBILINOGEN NORMAL NORMAL MG/DL 09/19/2024 5:12 PM CDT [facility] BILIRUBIN (U) NEGATIVE NEGATIVE MG/DL 09/19/2024 5:12 PM CDT [facility] BLOOD (U) NEGATIVE NEGATIVE 09/19/2024 5:12 PM CDT [facility] MUCUS RARE /LPF 09/19/2024 5:12 PM CDT [facility] HYALINE CASTS FEW /LPF 09/19/2024 5:12 PM CDT [facility] WBC/HPF 1 <6 /HPF 09/19/2024 5:12 PM CDT [facility] RBC/HPF 14(H) <6 /HPF 09/19/2024 5:12 PM CDT [facility] URINE, STRAIGHT CATH 09/19/2024 5:02 PM CDT us Torsten Casas MD URINE ORDERABLES Final Result [facility] [address] [place] [address], * TSH W/REFLEX (09/19/2024 3:13 PM CDT) TSH 0.655 0.358 - 3.74 uIU/ML 09/19/2024 4:34 PM CDT [facility] Comment: HIGH DOSES OF BIOTIN MAY INTERFERE WITH THIS TEST RESULT. CORRELATION TO CLINICAL HISTORY AND PRESENTATION RECOMMENDED. FREE T4 NOT INDICATED 09/19/2024 3:13 PM CDT Torsten Casas MD LABORATORY Final R [facility] [address] [place] [address], * (ABNORMAL) PRO-BRAIN NATRIURETIC PEPTIDE (09/19/2024 3:13 PM CDT) PRO-B TYPE NATRIURETIC PEPTIDE 4,938(H) <450 PG/ML 09/19/2024 4:34 PM CDT [facility] Comment: CUT POINTS ESTABLISHED BY [employer] ON NT PROBNP (ICON) STUDY (2006). AGE INDEPENDENT: <300 PG/ML HAS A 99% NEGATIVE PREDICTIVE VALUE FOR EXCLUDING ACUTE CHF <50 YEARS: >450 PG/ML IS CONSISTENT WITH ACUTE CHF 50-75 YEARS: >900 PG/ML IS CONSISTENT WITH ACUTE CHF >75 YEARS: >1800 PG/ML IS CONSISTENT WITH ACUTE CHF IN PATIENTS WITH RENAL INSUFFICIENCY (GFR <60), >1200 PG/ML YIELDS A DIAGNOSTIC SENSITIVITY AND SPECIFICITY OF 89% AND 72% FOR ACUTE CHF. 09/19/2024 3:13 PM CDT Torsten Casas MD LABORATORY Final R esjamal [facility] [address] [place] [address], [place] [phone] * TROPONIN, QUANT (09/19/2024 3:13 PM CDT) TROPONIN I HIGH SENSITIVITY 37 <54 ng/L 09/19/2024 4:34 PM CDT [facility] Comment: HIGH DOSES OF BIOTIN, TROPONIN-SPECIFIC AUTOANTIBODIES, AND ANTIBODY THERAPY CONTAINING HAMA MAY INTERFERE WITH THIS TEST RESULT. CORRELATION TO CLINICAL HISTORY AND PRESENTATION RECOMMENDED. 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[employer] Over: [id number] : 1935 Requested By: TORSTEN CASAS Order Number: [id number] Reading MD: Luke Rojas Measurements Intervals [place] Rate: 96 P: 0 [place]: 0 QRS: -56 QRSD: 161 T: 62 QT: 401 QTc: 507 Interpretive Statements ATRIAL FIBRILLATION WITH ABERRANT CONDUCTION OR VENTRICULAR PREMATURE COMPLEXES RIGHT BUNDLE BRANCH BLOCK [120+ ms QRS DURATION, UPRIGHT V1, 40+ ms S IN I/aVL/V4/V5/V6] LEFT ANTERIOR FASCICULAR BLOCK [QRS AXIS <= -45, QR IN I, RS IN II] POSSIBLE ANTERIOR MYOCARDIAL INFARCTION [30 ms Q WAVE IN V3/V4, OR R < 0.2 mV IN V4], OF INDETERMINATE AGE Compared to ECG 03/20/2024 13:51:34 Ventricular premature complex(es) now present Aberrant conduction of supraventricular beat(s) now present Left-axis deviation no longer present Myocardial infarct finding still present Procedure Note Luke Rojas MD - 09/19/[address] [place] Test Date: 2024-09-19 Pat Name: ELSI WELSH Department: 41 Room: [facility] 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[employer] Over: [id number] : 1935 Requested By: TORSTEN CASAS Order Number: [id number] Reading MD: Luke Rojas Measurements Intervals [place] Rate: 96 P: 0 [place]: 0 QRS: -56 QRSD: 161 T: 62 QT: 401 QTc: 507 Interpretive Statements ATRIAL FIBRILLATION WITH ABERRANT CONDUCTION OR VENTRICULAR PREMATURE COMPLEXES RIGHT BUNDLE BRANCH BLOCK [120+ ms QRS DURATION, UPRIGHT V1, 40+ ms S IN I/aVL/V4/V5/V6] LEFT ANTERIOR FASCICULAR BLOCK [QRS AXIS <= -45, QR IN I, RS IN II] POSSIBLE ANTERIOR MYOCARDIAL INFARCTION [30 ms Q WAVE IN V3/V4, OR R < 0.2mV IN V4], OF INDETERMINATE AGE Compared to ECG 03/20/2024 13:51:34 Ventricular premature complex(es) now present Aberrant conduction of supraventricular beat(s) now present Left-axis deviation no longer present Myocardial infarct finding still present us Torsten Casas MD ECG ORDERABLES Final R esult [facility] RAD * LIPID PANEL (05/16/2021 4:21 AM CDT) CHOLESTEROL 148 <200 MG/DL 05/16/2021 5:21 AM CDT [facility] TRIGLYCERIDES 86 <150 MG/DL 05/16/2021 5:21 AM CDT [facility] HDL 44 >40.0 MG/DL 05/16/2021 5:21 AM CDT [facility] LDL (CALCULATED) 87 <100 MG/DL 05/16/20 5:21 AM CDT [facility] NON HDL CHOLESTEROL 104 <130 MG/DL 05/16 5:21 AM CDT [facility] CHOL/HDL RATIO 3.4 0.0 - 4.5 05/16/2021 5:21 AM CDT [facility] VLDL CALCULATION 17 5 - 55 MG/DL 05/16/2021 5:21 AM CDT [facility] LIPID INTERPRETATION 05/16/2021 5:21 AM CDT [facility] Comment: [facility] REPORT RECOMMENDATIONS: ADULT CHILD LOW RISK: CHOLESTEROL <200 <170 TRIGLYCERIDE <150 --- HDL >=60 --- LDL <100 <110 BORDERLINE: CHOLESTEROL 200-239 170-199 TRIGLYCERIDE 150-199 --- HDL 40-59 --- LDL 100-159 110-129 HIGH RISK: CHOLESTEROL >=240 >=200 TRIGLYCERIDE >=200 --- HDL <40 --- LDL >=160 >=130 05/16/2021 4:21 AM CDT Radha Roca MD LABORATORY Final Result [facility] [address] [place] [address], from Last 3 Months or Most Recently Relevant to Health Maintenance Insurance MEDICARE [address] [address] [place] [id number] [facility] MEDICARE HUMAN Advance Directives Documents on File Type Date Recorded Patient Core Cutter Expl anation Advance Directives and Living Will 10/12/2024 4:10 PM 09/18/18 POA FOR HC Advance Directives and Living Will 10/01/2024 3:45 PM * Full Code (Latest Code Status on File) Date Activated Date Inactivated Comments 09/30/2024 2:37 PM 10/08/2024 12:53 PM * Full Code Date Activated Date Inactivated Comments 09/19/2024 5:39 PM 09/30/2024 2:21 PM * Full Code Date Activated Date Inactivated Comments 05/15/2021 8:45 PM 05/17/2021 4:49 PM * Full Code Date Activated Date Inactivated Comments 09/08/2018 1:04 AM 09/18/2018 4:15 PM * Full Code Date Activated Date Inactivated Comments 09/02/2018 7:40 PM 09/07/2018 5:30 PM Healthcare Agents on File Name Relationship Healthcare Agent Relationshi p Communication Veronika Robertson Daughter Health Care Agent Care Teams Asset Protection Agent Relationship Specialty Start Date End Date Fela Zaidi MD [address] [facility] [address] [place], [place] [address] PCP - General FAMILY PRACTICE 09/22/18 Teddy Vela MD [address] [facility] [address] [place] [phone] [place] Wall[employer] Printer Helper CARDIOVASCULAR DISEASE 09/23/18 Carline Tinsley, RN [address] [place] [address] Registered Nurse CARE MANAGEMENT 09/20/24
--- OUTSIDE RECORDS SUMMARY | 2024-10-28 14:08 | XMS_ITS | Patient Health Record ---
Author Organization [facility] Address [address] [place], [place] [id number] Care Team Providers Care Decorating Inspector Name Role Phone RADHA PURNIMA Unavailable [phone] Fela Zaidi Unavailable Unavailable Allergies No Known Allergies Reason For Referral No Information Medications Medication SIG (Take, Route, Frequency, Duration) Notes Start Date End Date Status ubidecarenone 10 MG Oral Capsule ORAL ubidecarenone 10 MG Oral CapsuleOriginal Medicationubidecarenone 10 MG Oral Capsule *Reorder from Array Storm for eRx and Interaction Alerts* 9 Active Apixaban 2.5 MG Oral Tablet ORAL apixaban 2.5 MG Oral TabletOriginal Medicationapixaban 2.5 MG Oral Tablet *Reorder from Array Storm for eRx and Interaction Alerts* 9 Active Immunizations Vaccine Route Administration Date Status Comme nts Influenza, high dose seasonal Unknown 10/02/2024 Admini stered Pneumococcal conjugate PCV 13 Unknown 10/02/2024 Admini stered Vital Signs Height-cm 160.02 cm 02/25/2024 Weight-kg 81.65 kg 02/25/2024 Height 63.00 in 02/25/2024 Weight 180 lbs 02/25/2024 BMI 31.88 kg/m2 02/25/2024 Encounters Encounter Location Date Provider Diagnosis [facility] [address] [facility] [address] [place], [place] [id number] 01/14/2024 PURNIMA SNMAIAK Tinea unguium B35.1 ; Pain in right foot M79.671 ; Pain in left foot M79.672 ; Atherosclerosis of [place] arteries of extremities with intermittent claudication, bilateral legs I70.213 and Acquired keratosis [keratoderma] palmaris et plantaris L85.1 [facility] [address] [place], [place] [id number] 02/25/2024 PURNIMA SNOOK Cutaneous abscess of right foot L02.611 ; Atherosclerosis of [place] arteries of extremities with intermittent claudication, bilateral legs I70.213 and Pain in right foot M79.671 [facility] [place] [address] [facility] [address] [place], [place] [id number] 05/06/2024 PURNIMA SNOOK Tinea unguium B35.1 ; Pain in right foot M79.671 ; Pain in left foot M79.672 ; Atherosclerosis of [place]iut arteries of extremities with intermittent claudication, bilateral legs I70.213 and Acquired keratosis [keratoderma] palmaris et plantaris L85.1 Assessments Encounter Date Diagnosis (ICD Code) Assessment Notes Treatment Notes Treatment Clinical Notes Section Notes 01/14/2024 Tinea unguium (ICD-10 - B35.1) Nails 1-5 Bilateral were debrided extensively with nail nippers and emery board, reducing length and girth to pink healthy tissue with any subungual debris and necrotic tissue removed 01/14/2024 Pain in right foot (ICD-10 - M79.671) 02/25/2024 Atherosclerosis of [place] arteries of extremities with intermittent claudication, bilateral legs (ICD-10 - I70.213) 02/25/2024 Cutaneous abscess of right foot (ICD-10 - L02.611) Incision and Drainage / I&D: Following skin prep, the lesion was incised and drained. The infection was decompressed. Recommend daily Betadine dressing changes. Patient instructed to monitor the area. Infection Protocol: Patient instructed to observe foot for signs and symptoms of infection, including but not limited to: increased redness and warmth to the area, increased drainage from the area, foul odor, and/or presence of fever/chills/cayden sea/vomiting. If patient experiences any of the above they are to call the office immediately, if someone is not present in the office then proceed to the nearest ER. 05/06/2024 Tinea unguium (ICD-10 - B35.1) Nails 1-5 Bilateral were debrided extensively with nail nippers and emery board, reducing length and girth to pink healthy tissue with any subungual debris and necrotic tissue removed 05/06/2024 Pain in right foot (ICD-10 - M79.671) 05/06/2024 Pain in left foot (ICD-10 - M79.672) 02/25/2024 Pain in right foot (ICD-10 - M79.671) 01/14/2024 Pain in left foot (ICD-10 - M79.672) 01/14/2024 Atherosclerosis of [place]iut arteries of extremities with intermittent claudication, bilateral legs (ICD-10 - I70.213) 05/06/2024 Atherosclerosis of [place]iut arteries of extremities with intermittent claudication, bilateral legs (ICD-10 - I70.213) 05/06/2024 Acquired keratosis [keratoderma] palmaris et plantaris (ICD-10 - L85.1) A total of 2 corns or calluses, as described in the note above, were cut and pared utilizing a #15 blade 01/14/2024 Acquired keratosis [keratoderma] palmaris et plantaris (ICD-10 - L85.1) A total of 1 corns or calluses, as described in the note above, were cut and pared utilizing a #15 blade 02/25/2024 Other Edema Recommendations: Advised patient on edema treatment recommendations. Recommendation for periodic elevation of feet and lower legs through the day. Recommend support compression hose. Recommend dietary restrictions salt intake. Followup with family physician for potential diuretic management if needed. Plan Of Treatment No Information Insurance Providers Payer Name Payer Address Payer Phone Subscriber Number Group Number Insured Name Patient Relationship to Insured Coverage Start Date Coverage End Date Medicare Part B [facility] [address] [place] [address] [id number] SHERRI WELSH Self - patient is the insured for Life ([employer] Reg[employer]) [address] [place], [place] [id number] SHERRI WELSH Self - patient is the insured
--- OUTSIDE RECORDS SUMMARY | 2024-10-28 14:08 | XMS_ITS ---
Author Organization [facility] Address [address] [place], [place] [id number] Care Team Providers Care Snuff Drier Name Role Phone PURNIMA GARCIA Unavailable [phone] Fela Zaidi Unavailable Unavailable REASON FOR VISIT *General care Encounters Encounter Location Date Provider Diagnosis [facility] [place] [id number] [facility] [address] [place], [place] [id number] 07/30/2024 PURNIMA GARCIA Plan Of Treatment No Information Progress Notes * SHERRI WELSH EDOB:[birth year] (89 yo F)Acc No.[id number]:07/30/2024 Patient: SHERRI SORENSEN Provider: Jaki Garcia DPM :1935 A ge:89 Y S ex:Female Date:07/30/2024 Address:[address] [place] [address] [address], [facility] Subjective: * Chief Complaints: * 1 . *General care. * Medical History: Objective: * Vitals: Assessment: Plan: * Treatment: * Billing Information: * Visit Code: * Procedure Codes: * Electronic signature of PURNIMA GARCIA DPM on 10/28/2024 at 02:08 PM CDT Sign off status: Pending * Provider: Jaki Garcia DPM Date: 0 07/30/2024 Generated for Desire magana/Jennifer/eTleonciosmitting on: 0 10/28/2024 02:08 PM CDT
--- OUTSIDE RECORDS SUMMARY | 2024-10-28 14:08 | XMS_ITS | Encounter Summary ---
Author Organization [facility] Address [address] [place] [address] Phone Care Team Providers Care Transmission Maintenance Supervisor Name Role Phone Fela Zaidi MD Primary Care Provider [phone] Harvinder Vu MD Unavailable [phone] Encounter Details Date Type Department Care Team (Late st Contact Info) Description 03/29/2022 Telephone [facility] [address] [place] [address] Harvinder Vu MD [address] [place] [address] Social History Tobacco Use Types Packs/Day Years Used Date Smoking Tobacco: Former Cigarettes Q uit: 03/30/1991 Smokeless Tobacco: Never Alcohol Use Standard Drinks/Week Comments Not Currently 0 (1 standard drink = 0.6 oz pur e alcohol) PHQ-2 Answer Date Recorded Total Score - Questions 1-9 0 03/0 10/2021 Comments Unknown Sex and Gender Information Value Date Recorded Sex Assigned at Not on file Legal Sex Female 8:19 AM CDT Gender Identity Not on file Sexual Orientation Not on file documented as of this encounter Miscellaneous Notes * Telephone Encounter - Beth Nguyễn - 03/29/2022 10:37 AM CDT LVM ON DAUGHTER PH # [phone] TO CALL CLINIC TO RESCHEDULE ELSI SYED OFFICE APPT. SENDING MISSED APPT LETTER documented in this encounter Plan of Treatment Not on file documented as of this encounter Visit Diagnoses Not on filedocumented in this encounter Additional Health Concerns Assessment Noted Time PHQ-9 Depression Total Score: 0 04/13/20 21 11:03 AM CDT documented as of this encounter Care Teams Transmission Maintenance Supervisor Relationship Specialty Start Date End Date Fela Zaidi MD [address] [address] PCP - General Internal Medicine 04/29/18 Harvinder Vu MD [address] [place] [phone] Consulting Physician Oncology 04/11/21 documented as of this encounter
--- OUTSIDE RECORDS SUMMARY | 2024-10-28 14:08 | XMS_ITS | Clinical Summary ---
Author Organization [facility] Address [address] [place] [address] Phone Care Team Providers Care Assistant Women'S Soccer Coach Name Role Phone Fela Zaidi MD Primary Care Provider [phone] Harvinder Vu MD Unavailable [phone] Allergies No known active allergies Medications apixaban (ELIQUIS) 5 MG Tablet Take 5 mg by mouth. 02/15/2021 Active carvedilol (COREG) 6.25 MG Tablet Take 6.25 mg by mouth. 12/25/2020 Active Coenzyme Q10 100 MG Capsule Take 100 mg by mouth daily. 12/14/2018 Active furosemide (LASIX) 20 MG Tablet Take 20 mg by mouth. 02/05/2021 Active Multiple Vitamin (Daily Vitamin) Tablet Take 1 Tablet by mouth daily. 12/14/2018 Active potassium chloride CR (KLORCON) 10 MEQ Tablet Controlled Release Take 10 mEq by mouth. 10/30/2020 Active sacubitril-valsa rtan (ENTRESTO) 24-26 MG Tablet Take 1 Tablet by mouth. 03/15/2021 Active spironolactone (ALDACTONE) 25 MG Tablet Take 25 mg by mouth. 12/25/2020 Active acetaminophen (TYLENOL) 325 MG Tablet Take 650 mg by mouth. 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 019 Aortic regurgitation 10/05/2018 ASHD (arteriosclerotic heart disease) 08/18/2018 Compression fracture of lumbar vertebra, non-tra umatic 04/21/2018 Thoracic ascending aortic aneurysm 04/15/2018 Abnormal imaging of thyroid 04/15/2018 Arthritis 04/01/2018 Immunizations Immunization Administration Dates Next Due Influenza Vaccine, Quadrivalent, PF 05/17/2021 Influenza, High-dose, Quadrivalent 05/18/2020 Family History Medical History Relation Name Comments Heart Disease Father Thyroid Disease Father Hypertension Mother Osteoporosis Mother Osteoporosis Sister Relation Name Status Comments Father Mother Sister Social History Tobacco Use Types Packs/Day Years Used Date Smoking Tobacco: Former Cigarettes Q uit: 03/30/1991 Smokeless Tobacco: Never Alcohol Use Standard Drinks/Week Comments Not Currently 0 (1 standard drink = 0.6 oz pur e alcohol) PHQ-2 Answer Date Recorded Total Score - Questions 1-9 0 10/2021 Comments Unknown Sex and Gender Information Value Date Recorded Sex Assigned at Not on file Legal Sex Female 8:19 AM CDT Gender Identity Not on file Sexual Orientation Not on file Last Filed Vital Signs Vital Sign Reading Time Taken Comments Blood Pressure 130/78 09/14/2021 10:06 AM ANTI TANK MISSILEMAN Pulse 84 09/14/2021 10:06 AM ANTI TANK MISSILEMAN Temperature 36.1 C (96.9 F) 09/14/2021 10:06 AM ANTI TANK MISSILEMAN Respiratory Rate 18 09/14/2021 10:06 AM ANTI TANK MISSILEMAN Oxygen Saturation 97% 09/14/2021 10:06 AM ANTI TANK MISSILEMAN Inhaled Oxygen Concentration - - Weight 83.9 kg (185 lb) 09/14/2021 10:06 AM ANTI TANK MISSILEMAN Height 160 cm (5' 3 ) 09/14/2021 10:06 AM ANTI TANK MISSILEMAN Body Mass Index 32.77 09/14/2021 10:06 AM ANTI TANK MISSILEMAN Plan of Treatment Health Maintenance Due Date Last Done Comments Hepatitis C Virus (HCV) Screening 1935 TdaP Immunization 1935 Pneumococcal Immunization (5 0+ years) (1 of 2 - PCV) 1954 Zoster Immunization (1 of 2) 1985 Respiratory Syncytial Virus (RSV) Immunization (Adult) (1 - 1-dose 75+ series) 2010 Influenza Immunization (#1) 2024 11/0 10/2020, 05/18/2020 SARS-COV-2 Immunization ( season) 2024 05/30/2021, 10/12/2020, 09/21/2020 Hepatitis B Immunization Aged Out No longer eligible based on patient's age to complete this topic Meningococcal Immunization (ACWY) Aged Out No longer eligible b ased on patient's age to complete this topic Rotavirus Immunization Aged Out No lo nger eligible based on patient's age to complete this topic Insurance [employer] MEDICARE Care Teams Assistant Women'S Soccer Coach Relationship Specialty Start Date End Date Fela Zaidi MD [address] [phone] PCP - General Internal Medicine 04/29/18 Harvinder Vu MD [address] [place] [phone] Consulting Physician Oncology 04/11/21
[2024-10-28] MEDS: KETOROLAC 15 MG/ML VIAL (*BKC) IV PUSH (14:09)
[2024-10-28] MEDS: dilTIAZem HCl INJ 25 MG/5 ML VIAL 10 MG IV PUSH (14:09)
--- NOTE | 2024-10-28 14:14 | ED.GENADULT ---
HPI - General Adult General Chief complaint: Altered Mental Status Stated complaint: ams Time Seen by Provider: 10/28/24 13:20 History of Present Illness HPI narrative: 89-year-old female presenting to the emergency department for evaluation for altered mental status. Family states the patient has been increasingly fatigued over the last 3 days. Patient has been complaining of diffuse body aches. Patient has had decreased p.o. intake as well. Patient did have a fall approximately 3 weeks ago and was seen at [facility]. Related Data Home Medications ?Medication ?Instructions ?Recorded ?Confirmed ?Last Taken ?Type acetaminophen 325 mg tablet 650 mg PO Q6H PRN pain 10/28/24 10/28/24 Unknown History albuterol sulfate 90 mcg/actuation 2 puff inhalation Q6H 10/28/24 10/28/24 Unknown History aerosol inhaler apixaban 5 mg tablet (Eliquis) 5 mg PO Q12H 10/28/24 10/28/24 Unknown History carvedilol 6.25 mg tablet 6.25 mg PO Q12H 10/28/24 10/28/24 Unknown History dextromethorphan-guaifenesin 30 1 tablet PO BID PRN cough 10/28/24 10/28/24 Unknown History mg-600 mg tablet extended hr furosemide 20 mg tablet 40 mg PO DAILY 10/28/24 10/28/24 Unknown History magnesium 200 mg tablet 400 mg PO BID 10/28/24 10/28/24 Unknown History multivitamin 1 tablet PO DAILY 10/28/24 10/28/24 Unknown History potassium chloride 20 mEq 20 meq PO ONCE 10/28/24 10/28/24 Unknown History tablet,extended release(part/cryst) (Klor-Con M) spironolactone 25 mg tablet 12.5 mg PO DAILY 10/28/24 10/28/24 Unknown History Allergies Allergy/AdvReac Type Severity Reaction Status Date / Time No Known Allergies Allergy Verified 10/28/24 12:12 Review of Systems Review of Systems: All systems reviewed & are unremarkable except as noted in HPI and below PMFSH Social History Social History Smoking status: Never smoker Alcohol intake: never Substance use: never Spiritual care concerns: No Exam Narrative: APPEARANCE: Patient resting comfortably HEAD: normocephalic, atraumatic. EYES: PERRLA/EOMI, conjunctivae clear. NOSE: Normal no drainage EARS:TMS clear with good light reflex. THROAT: Pharynx clear, no exudate. NECK: Supple. No adenopathy, no masses. RESPIRATORY: Airway patent, respirations nonlabored. Clear to auscultation bilaterally, no rales, rhonchi, wheezing. CARDIOVASCULAR: Regular rate and rhythm without murmurs rubs or gallops. ABDOMINAL: Soft, nontender, nondistended, normal bowel sounds MUSCULOSKELETAL: Moves all extremities. Strength/ROM intact, No edema, No calf tenderness. NEURO: Alert to verbal stimuli. Cranial nerves II through XII intact. Good gait. Good coordination SKIN: Warm, dry. Normal Color Course Vital Signs Vital signs: Vital Signs Temperature 100.6 F H 10/28/24 11:15 Pulse Rate 136 H 10/28/24 11:15 Respiratory Rate 24 H 10/28/24 11:15 Blood Pressure 112/72 10/28/24 11:15 Pulse Oximetry 96 10/28/24 11:15 Temperature 98.3 F 10/28/24 19:58 Pulse Rate 100 10/28/24 20:00 Respiratory Rate 20 10/28/24 19:58 Blood Pressure 92/60 L 10/28/24 19:58 Pulse Oximetry 93 10/28/24 20:00 Oxygen Delivery Nasal Cannula 10/28/24 20:00 Oxygen Flow Rate 2 10/28/24 20:00 Medical Decision Making [facility] Narrative Medical decision making narrative: 89-year-old female presents emergency department for evaluation for AFib with RVR and increase altered mental status. Patient is febrile with a leukocytosis of 13.1 hemoglobin 11.2. Patient does have an elevated creatinine and BUN. Patient's CRP is elevated. Urine was significant for urinary tract infection. Chest x-ray was negative for pneumonia. COVID RSV influenza is pending. Patient was started on Rocephin IV for suspected urinary tract infection. Patient was treated with a dose of IV Cardizem and this helped to control her heart rate from 120s down to 90s. Patient was also treated with a L of lactated Ringer's. Head CT did show possible acute subarachnoid hemorrhage. Family stated they do not want to pursue any surgical options if this was to worsen. I did consult Neurosurgery and they felt the patient would be appropriate for admission for serial CT scans. Once again the family states that serial CT scans do worsened they would not want to pursue transfer for for any surgical intervention for worsening bleed. Patient is currently on Eliquis for AFib with RVR. Risk of worsening bleed versus risk of reversing the Eliquis were discussed and family does prefer to reverse the Eliquis so patient was treated with IV Kcentra. Case was discussed with hospitalist patient will be admitted to the IMU for her AFib with RVR and heart rate control. Family was updated in the plan for admission. All questions concerns were addressed. Differential Diagnosis Differential Diagnosis: COVID, RSV, influenza a, intracranial injury, UTI pneumonia Vital Signs Vital Signs: Vital Signs Temperature 100.6 F H 10/28/24 11:15 Pulse Rate 136 H 10/28/24 11:15 Respiratory Rate 24 H 10/28/24 11:15 Blood Pressure 112/72 10/28/24 11:15 Pulse Oximetry 96 10/28/24 11:15 Temperature 98.3 F 10/28/24 19:58 Pulse Rate 100 10/28/24 20:00 Respiratory Rate 20 10/28/24 19:58 Blood Pressure 92/60 L 10/28/24 19:58 Pulse Oximetry 93 10/28/24 20:00 Oxygen Delivery Nasal Cannula 10/28/24 20:00 Oxygen Flow Rate 2 10/28/24 20:00 Lab Data Lab results reviewed: Yes I reviewed the patient's lab results. 10/28/24 11:54 10/28/24 11:54 Labs: Lab Results 10/28/24 10/28/24 10/28/24 Range/Units 11:25 11:54 12:55 WBC 13.1 H (4.5-10.0) K/mm3 RBC 3.46 L (4.2-5.4) M/mm3 Hgb 11.2 L (12.0-15.0) g/dL Hct 35.1 L (37.0-47.0) % MCV 101.4 H (80-100) fl MCH 32.4 (26-34) pg MCHC 31.9 L (32-36) g/dl RDW 13.2 (11.5-14.5) % Plt Count 233 (150-375) k/mm3 MPV 9.5 (7.4-10.4) fl Immature Gran % (Auto) 1.1 H (0-0.5) % Neut % (Auto) 87.7 H (45.5-73.1) % Lymph % (Auto) 3.8 L (18.3-44.2) % [place] % (Auto) 5.0 (2.6-8.5) % Eos % (Auto) 2.2 (0-4.4) % Baso % (Auto) 0.2 (0.2-1.2) % Lymph # (Auto) 0.50 L (0.9-3.2) K/mm3 [place] # (Auto) 0.7 H (0.1-0.6) K/mm3 Eos # (Auto) 0.3 (0-0.3) K/mm3 Baso # (Auto) 0.0 (0.0-0.1) K/mm3 Abs Immat Gran (auto) 0.15 H (0.00-0.031) K/mm3 Absolute Neuts (auto) 11.5 H (1.3-6.7) K/mm3 Absolute Nucleated RBC 0.000 (0.0-0.012) K/mm3 Nucleated RBC % 0.0 (0.0-0.2) % PT 37.8 H (11.1-14.7) Seconds INR 3.8 APTT 37.8 H (22.3-36.8) Seconds Sodium 134 L (137-145) mmol/L Potassium 4.7 (3.4-5.0) mmol/L Chloride 99 (98-107) mmol/L Carbon Dioxide 27 (22-30) mmol/L Anion Gap 8 (4-12) mmol/L BUN 32 H (7-17) mg/dL Creatinine 1.01 H (0.7-1.0) mg/dL Estim Creat Clear Calc 32 ml/min Estimated GFR 52 L (59 - ) Glucose 102 (65-110) mg/dL POC Capillary Glucose 106 H (65-105) mg/dl Lactic Acid 1.6 (0.7-2.0) mmol/L Calcium 9.1 (8.4-10.2) mg/dL Total Bilirubin 0.8 (0.2-1.3) mg/dL AST 50 H (14-36) U/L ALT 33 (6-35) U/L Alkaline Phosphatase 101 (38-126) U/L C-Reactive Protein 25.2 H (<1.0) mg/dL Total Protein 7.0 (6.3-8.2) g/dL Albumin 2.7 L (3.5-5.1) g/dL Urine Color Dark yellow (Yellow) Urine Appearance Turbid H (Clear) Urine pH 6.5 (5.0-9.0) Ur Specific [place] 1.024 (1.001-1.035) Urine Protein 2+ H (Negative) mg/dL Urine Glucose (UA) Negative (Negative) mg/dL Urine Ketones Trace H (Negative) mg/dL Ur Blood (Man) 3+ H (Negative) Urine Nitrate Positive H (Negative) Urine Bilirubin 1+ H (Negative) Urine Urobilinogen 1.0 (<2.0) mg/dL Leukocyte Esterase Rfl 3+ H (Negative) VIDA/UL Urine RBC 51-100 H (0-2) /hpf Urine WBC >100 (0-3) /hpf Ur Squamous Epith Cells None seen (Few) /hpf Urine Bacteria 4+ H (None) /hpf Influenza A (RT-PCR) (Negative) Influenza B (RT-PCR) (Negative) RSV (RT-PCR) (Negative) SARS-CoV-2 RNA (RT-PCR) (Negative) 10/28/24 Range/Units 14:15 WBC (4.5-10.0) K/mm3 RBC (4.2-5.4) M/mm3 Hgb (12.0-15.0) g/dL Hct (37.0-47.0) % MCV (80-100) fl MCH (26-34) pg MCHC (32-36) g/dl RDW (11.5-14.5) % Plt Count (150-375) k/mm3 MPV (7.4-10.4) fl Immature Gran % (Auto) (0-0.5) % Neut % (Auto) (45.5-73.1) % Lymph % (Auto) (18.3-44.2) % [place] % (Auto) (2.6-8.5) % Eos % (Auto) (0-4.4) % Baso % (Auto) (0.2-1.2) % Lymph # (Auto) (0.9-3.2) K/mm3 [place] # (Auto) (0.1-0.6) K/mm3 Eos # (Auto) (0-0.3) K/mm3 Baso # (Auto) (0.0-0.1) K/mm3 Abs Immat Gran (auto) (0.00-0.031) K/mm3 Absolute Neuts (auto) (1.3-6.7) K/mm3 Absolute Nucleated RBC (0.0-0.012) K/mm3 Nucleated RBC % (0.0-0.2) % PT (11.1-14.7) Seconds INR APTT (22.3-36.8) Seconds Sodium (137-145) mmol/L Potassium (3.4-5.0) mmol/L Chloride (98-107) mmol/L Carbon Dioxide (22-30) mmol/L Anion Gap (4-12) mmol/L BUN (7-17) mg/dL Creatinine (0.7-1.0) mg/dL Estim Creat Clear Calc ml/min Estimated GFR (59 - ) Glucose (65-110) mg/dL POC Capillary Glucose (65-105) mg/dl Lactic Acid (0.7-2.0) mmol/L Calcium (8.4-10.2) mg/dL Total Bilirubin (0.2-1.3) mg/dL AST (14-36) U/L ALT (6-35) U/L Alkaline Phosphatase (38-126) U/L C-Reactive Protein (<1.0) mg/dL Total Protein (6.3-8.2) g/dL Albumin (3.5-5.1) g/dL Urine Color (Yellow) Urine Appearance (Clear) Urine pH (5.0-9.0) Ur Specific [place] (1.001-1.035) Urine Protein (Negative) mg/dL Urine Glucose (UA) (Negative) mg/dL Urine Ketones (Negative) mg/dL Ur Blood (Man) (Negative) Urine Nitrate (Negative) Urine Bilirubin (Negative) Urine Urobilinogen (<2.0) mg/dL Leukocyte Esterase Rfl (Negative) VIDA/UL Urine RBC (0-2) /hpf Urine WBC (0-3) /hpf Ur Squamous Epith Cells (Few) /hpf Urine Bacteria (None) /hpf Influenza A (RT-PCR) Negative (Negative) Influenza B (RT-PCR) Negative (Negative) RSV (RT-PCR) Negative (Negative) SARS-CoV-2 RNA (RT-PCR) Negative (Negative) Imaging Data Radiologist's impression: Impressions Chest X-Ray 10/28/24 12:09 Impression: Probable small left pleural effusion. Linear scarring right lung base. Head CT 10/28/24 14:46 Impression: Small subarachnoid hemorrhage, within the left frontal lobe, high in the convexity, as detailed above. These findings were discussed with Dr. Lackey at 2:45 PM on 10/28/2024 Shoulder X-Ray 10/28/24 15:06 IMPRESSION: No acute osseous abnormality right shoulder. 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 Discharge Plan Discharge Clinical Impression: Altered mental status, Atrial fibrillation with rapid ventricular response, Urinary tract infection, Subarachnoid hemorrhage Patient Disposition: Still a Patient Condition: Serious
[2024-10-28] MEDS: LACTATED RINGERS 1,000 ML 999 ML IV CONT (14:54)
[2024-10-28 15:23] LABS: Influenza A QL RT-PCR Negative (Negative); Influenza B QL RT-PCR Negative (Negative); RSV RNA, RT-PCR Negative (Negative); SARS-CoV-2 RNA PCR Negative (Negative)
[2024-10-28] MEDS: HUMAN PROTHROMBIN COMPLEX(PCC) 2,000 UNITS in PREMIXIV 0 ML 460 UNITS IV CONT (16:05)
--- NOTE | 2024-10-28 16:24 | PC.NURSE ---
Marianna Lyons updated on pt admit status
--- NOTE | 2024-10-28 16:28 | PC.NURSE ---
This patient, Elsi Syed, was admitted to IMU Room 232-01 at 1627. Patient/family oriented to hospital policies and general routines including ID bracelet, bed and alarms, visiting hours, pain management, procedures, bathroom and other care routines, personal items, smoking policy, room service/diet, and visiting hours. Information on how to activate the Rapid Response Team has been discussed. Patient/Family are encouraged to report perceived risks to care and to ask questions if they do not understand what they are told or what they should do.
--- NOTE | 2024-10-28 16:30 | PM.IMHP ---
H&P: HPI History of Present Illness Date/Time: 10/28/24 18:30 Chief Complaint: Altered mental status. Narrative: This is an 89-year-old female with a reported history of coronary artery disease, congestive heart failure, hypertension, aortic valve stenosis, ascending aortic aneurysm, paroxysmal atrial fibrillation on chronic anticoagulation, and chronic kidney disease who presented to the emergency department via EMS for evaluation of altered mental status. She is unable to provide an accurate history and thus a majority the following is obtained via a review of her EMR as well as information provided by her daughter in the ED. The patient had been living in independent living up until recently. Is my understanding that she was hospitalized at [facility] a few weeks ago after a fall and she is currently at [facility] for rehab where things have not been going well. She has gone downhill and it does not sound as though she is progressing. She has been more fatigued the last several days and has been complaining of body aches. Her appetite has been poor in her oral intake has dropped off. During rounds this morning staff found her to be alert and oriented to self only which is not her baseline (alert and oriented x4). She was febrile when they found her with a temperature of 101? F and EMS was summoned. In the ED: Vital signs on arrival include a temperature of 100.6? F, blood pressure 112/72, pulse 136, respiratory 24, SpO2 96%. Labs are significant for WBC count of 13.1, hemoglobin 11.2, PTT 37.8, INR 3.8, PTT 37.8, sodium 134, BUN 32, creatinine 1.01, lactic acid 1.6, CRP 25.2. Urine was positive for 2+ protein, trace ketones, 3+ blood, nitrates 3+ leukocyte esterase, the 1 to 100 RBC, > 100 WBC, and 4+ bacteria. She was negative for influenza, RSV, and COVID. Head CT showed a small subarachnoid hemorrhage within the left frontal lobe. Chest x-ray was without acute findings. Right shoulder x-ray showed no acute findings. She was started on ceftriaxone for urinary tract infection and Kcentra as she is on apixaban and she is being admitted in this setting. Of note, the ED physician had a discussion with the patient's family who stated that they would not want the patient transferred to a tertiary care facility as they would not want any intervention if the subarachnoid hemorrhage increased in size. Depending on her course over the next 24 hours, they may consider hospice. Review of Systems Review of Systems: Unable to obtain accurately given current clinical condition. [facility] Past Medical History Medical History (Updated 10/28/24 @ 23:47 by Sunita Magana PA-C) Osteoarthritis Chronic kidney disease Aortic valve stenosis Hypertension Coronary artery disease Chronic anticoagulation Paroxysmal atrial fibrillation Ascending aortic aneurysm Surgical History Surgical History (Updated 10/28/24 @ 23:43 by Sunita Magana PA-C) Surgical history unknown Social History Social History (Updated 10/28/24 @ 23:44 by Sunita Magana PA-C) Social History: Surrogate medical decision maker: Veronika (daughter) and Juan F (son-in-law) Ailyn. Code status: Do not resuscitate. Smoking status: Never smoker Alcohol intake: never Substance use: never Spiritual care concerns: No Meds Home Medications and Allergies Home Medications ?Medication ?Instructions ?Recorded ?Confirmed ?Type acetaminophen 325 mg tablet 650 mg PO Q6H PRN pain 10/28/24 10/28/24 History albuterol sulfate 90 mcg/actuation 2 puff inhalation Q6H 10/28/24 10/28/24 History aerosol inhaler apixaban 5 mg tablet (Eliquis) 5 mg PO Q12H 10/28/24 10/28/24 History carvedilol 6.25 mg tablet 6.25 mg PO Q12H 10/28/24 10/28/24 History dextromethorphan-guaifenesin 30 1 tablet PO BID PRN cough 10/28/24 10/28/24 History mg-600 mg tablet extended dmsoaoa20 hr furosemide 20 mg tablet 40 mg PO DAILY 10/28/24 10/28/24 History magnesium 200 mg tablet 400 mg PO BID 10/28/24 10/28/24 History multivitamin 1 tablet PO DAILY 10/28/24 10/28/24 History potassium chloride 20 mEq 20 meq PO ONCE 10/28/24 10/28/24 History tablet,extended release(part/cryst) (Klor-Con M) spironolactone 25 mg tablet 12.5 mg PO DAILY 10/28/24 10/28/24 History Allergies Allergy/AdvReac Type Severity Reaction Status Date / Time No Known Allergies Allergy Verified 10/28/24 12:12 Vital Signs Vital Signs - 24 hr 10/28/24 11:15 10/28/24 11:26 10/28/24 11:34 Temperature 100.6 F H 100.9 F H Pulse Rate 136 H 109 H Respiratory Rate 24 H Blood Pressure 112/72 Pulse Oximetry 96 Oxygen Delivery 10/28/24 12:02 10/28/24 12:28 10/28/24 12:46 Temperature Pulse Rate 105 H 114 H Respiratory Rate 24 H 28 H Blood Pressure 102/58 L 108/69 Pulse Oximetry 92 94 Oxygen Delivery Room Air 10/28/24 14:05 10/28/24 14:08 10/28/24 14:56 Temperature 99.5 F Pulse Rate 120 H 145 H 109 H Respiratory Rate 28 H 36 H 21 H Blood Pressure 107/78 107/78 93/53 L Pulse Oximetry 93 94 95 Oxygen Delivery 10/28/24 15:30 10/28/24 15:30 10/28/24 16:02 Temperature Pulse Rate 100 103 H 113 H Respiratory Rate 24 H 27 H 22 H Blood Pressure 99/60 L 99/60 L 97/64 L Pulse Oximetry Oxygen Delivery Exam Narrative: General: Moderately ill-appearing elderly female in the semi-Ferguson position in bed. She is asleep but does wake to voice and answers a couple of questions. Weight: 64.5 kg. BMI: 22.3. HEENT: PERRL, EOMI. Sclera anicteric. Tacky mucous membranes. Neck: Supple. No midline vertebral tenderness, JVD, lymphadenopathy, or obvious bruits or thyromegaly. Respiratory: Respirations are nonlabored. Lung sounds are diminished due to poor effort. Cardiovascular: Irregularly irregular rate and rhythm. Soft murmur at the upper sternal border. Gastrointestinal: Abdomen is soft, nontender, and nondistended with positive bowel sounds. Skin: Warm and dry. Extremities: No cyanosis or clubbing. Bilateral lower extremity edema. Peripheral pulses palpable. Neurological: Alert to name only. Cranial nerves 2-12 are grossly intact. She only said a few words but her speech was understandable. No obvious facial asymmetry. She was noted to move upper and lower extremities. She did not follow commands or participate in the neurologic exam. No gross focal deficits to casual conversation. Psychiatric: Confused and cooperative. H&P: Results Labs Labs: Short CBC 10/28/24 Range/Units 11:54 WBC 13.1 H (4.5-10.0) K/mm3 Hgb 11.2 L (12.0-15.0) g/dL Hct 35.1 L (37.0-47.0) % Plt Count 233 (150-375) k/mm3 BMP 10/28/24 11:54 Sodium 134 L Potassium 4.7 Chloride 99 Carbon Dioxide 27 BUN 32 H Creatinine 1.01 H Glucose 102 Calcium 9.1 Liver Function 10/28/24 Range/Units 11:54 Total Bilirubin 0.8 (0.2-1.3) mg/dL AST 50 H (14-36) U/L ALT 33 (6-35) U/L Alkaline Phosphatase 101 (38-126) U/L Albumin 2.7 L (3.5-5.1) g/dL Urine 10/28/24 Range/Units 11:54 Urine Color Dark yellow (Yellow) Urine Appearance Turbid H (Clear) Urine pH 6.5 (5.0-9.0) Ur Specific [place] 1.024 (1.001-1.035) Urine Protein 2+ H (Negative) mg/dL Urine Glucose (UA) Negative (Negative) mg/dL Imaging Chest X-Ray 10/28/24 12:09 Impression: Probable small left pleural effusion. Linear scarring right lung base. Head CT 10/28/24 14:46 Impression: Small subarachnoid hemorrhage, within the left frontal lobe, high in the convexity, as detailed above. These findings were discussed with Dr. Lackey at 2:45 PM on 10/28/2024. Shoulder X-Ray 10/28/24 15:06 IMPRESSION: No acute osseous abnormality right shoulder. 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 Assessment and Plan Assessment and plan (1) Altered mental status: Code(s): R41.82 - Altered mental status, unspecified Status: Acute (2) Sepsis: Code(s): A41.9 - Sepsis, unspecified organism Status: Acute (3) Urinary tract infection: Code(s): N39.0 - Urinary tract infection, site not specified Status: Acute (4) Subarachnoid hemorrhage: Code(s): I60.9 - Nontraumatic subarachnoid hemorrhage, unspecified Status: Acute (5) Atrial fibrillation with rapid ventricular response: Code(s): I48.91 - Unspecified atrial fibrillation Status: Acute (6) Chronic anticoagulation: Code(s): Z79.01 - halfway (current) use of anticoagulants Status: Acute (7) Chronic kidney disease: Code(s): N18.9 - Chronic kidney disease, unspecified Status: Acute Plan The patient presented to the emergency department for evaluation of fatigue, confusion, and fever as detailed in HPI. Labs, imaging, EKG, and all reports were personally reviewed. She meets sepsis criteria on arrival with fever, tachycardia, leukocytosis, and altered mental status in the setting of infection. Source of infection appears to be the urine and she has been started on ceftriaxone pending culture. Blood cultures have also been obtained and are pending. Lactic acid level was within normal limits and her blood pressures have been stable since she received a fluid bolus in the ED. Brain CT shows a small left frontal lobe subarachnoid hemorrhage and she was given prothrombin complex concentrate in the ED. Family members have decided that they do not want her transferred as they would not want intervention should this worsen and they may consider hospice depending on how she does overnight. Confusion is likely related to underlying infection. We will continue with neurologic checks q.4 hours. Continue judicious IV fluid rehydration. Her heart rate improved with a diltiazem bolus of 10 mg but she remains in atrial fibrillation. Apixaban is of course on hold. We did not have previous labs on this patient but I was told that she does have chronic kidney disease and her estimated GFR today's 52. Her home medications will be reviewed and resumed as appropriate. Her medical management will be taken over by the hospitalist team in a.m. Quality VTE Prophylaxis VTE prophylaxis: mechanical ordered If No VTE Prophylaxis Answer both mechanical and pharmacologic: Reason no pharmacologic proph: medical contraindication (subarachnoid hemorrhage) The patient has been admitted under observation status. Hospitalist [facility] Advance Care Plan I have confirmed that the patient's Advanced Care Plan is present, code status is documented, or surrogate decision maker is listed in patient medical record.: Yes Medication Reconciliation I have utilized all available resources to obtain, update and review the patients current medications (includes all prescriptions, OTC, herbals, cannabis, and nutritional supplements).: Yes
[2024-10-29] VITALS (20 sets, daily range): BP systolic 96–114; BP diastolic 48–70; PULSE 83–122; RESP 18–24; TEMP 36.4–37.2; O2SAT 93–98; BMI 22.6
--- NOTE | 2024-10-29 | ECHO_ITS ---
Patient Info Name: Elsi Syed Age: 89 years : 1935 Gender: Female Ht: 67 in Wt: 144 lbs BSA: 1.76 m2 HR: 109 bpm BP: 104 / 64 mmHg Heart Rhythm: Atrial Fibrillation Technical Quality: Fair Exam Date: 10/29/2024 1:38 PM Exam Location: Echo Lab Patient Status: Inpatient Admit Date: 10/29/2024 Staff Ordering Physician: Jose Dalal MD Drafter (Cad) Electronic: Daniella Billings RDCS Attending Provider: Renetta John MD Exam Type: CA echo doppler color flow Study Info Indications - sepsis Complete two-dimensional, color flow and Doppler transthoracic echocardiogram is performed. Summary 1. Complete two-dimensional, color flow and Doppler transthoracic echocardiogram is performed. 2. Left ventricular chamber dimension is normal. 3. Left ventricular systolic function is normal, estimated at 50-55%. 4. There is mild concentric increased left ventricular wall thickness. 5. The left ventricular diastolic function is abnormal. 6. E/e' 19 is elevated. 7. Atrial fibrillation. 8. Right ventricular chamber dimension is mildly enlarged. 9. Right ventricular systolic function is mildly reduced and with abnormal TAPSE 1.5 cm. 10. Left atrial chamber dimension is moderately enlarged. 11. Right atrial chamber dimension is severely enlarged. 12. There is severe aortic valve sclerosis. 13. There is mild aortic valve stenosis with a peak velocity of 222 cm/s, mean gradient of 8 mmHg, and aortic valve area of 1.9 cm2. 14. There is mild aortic valve regurgitation. 15. The mitral valve has moderately calcified annulus. 16. There is mild tricuspid valve regurgitation. 17. Mild pulmonary hypertension, estimated pulmonary arterial systolic pressure is 43 mmHg. 18. There is trace pulmonic regurgitation. 19. Dilated inferior vena cava with >50% collapse upon inspiration consistent with elevated right atrial pressure, 10 mmHg. Left Ventricle E/e' 19 is elevated. Atrial fibrillation. Left ventricular chamber dimension is normal. Left ventricular systolic function is normal, estimated at 50-55%. There is mild concentric increased left ventricular wall thickness. The left ventricular diastolic function is abnormal. Right Ventricle Right ventricular systolic function is mildly reduced and with abnormal TAPSE 1.5 cm. Right ventricular chamber dimension is mildly enlarged. Left Atria Left atrial chamber dimension is moderately enlarged. Right Atria Right atrial chamber dimension is severely enlarged. Aortic Valve The aortic valve is trileaflet. There is severe aortic valve sclerosis. There is mild aortic valve stenosis with a peak velocity of 222 cm/s, mean gradient of 8 mmHg, and aortic valve area of 1.9 cm2. There is mild aortic valve regurgitation. No aortic valve vegetation visualized. Pulmonic Valve There is trace pulmonic regurgitation. No pulmonic valve vegetation visualized. Mitral Valve The mitral valve has moderately calcified annulus. There is no mitral valve stenosis. There is no mitral valve regurgitation. No mitral valve vegetation visualized. Tricuspid Valve There is mild tricuspid valve regurgitation. Mild pulmonary hypertension, estimated pulmonary arterial systolic pressure is 43 mmHg. No tricuspid valve vegetation visualized. Pericardium/Pleural There is no pericardial effusion. Inferior Vena Cava Dilated inferior vena cava with >50% collapse upon inspiration consistent with elevated right atrial pressure, 10 mmHg. Aorta The aortic root size at the sinus of Valsalva is normal. Left Ventricular Outflow Tract Name Value Normal LVOT 2D LVOT Diameter 2.0 cm LVOT Doppler LVOT Peak Gradient 9 mmHg LVOT Mean Gradient 5 mmHg LVOT VTI 21 cm LVOT VTI/AV VTI Ratio 0.6 LVOT Stroke Volume 67 ml LVOT CO 5.5 l/min LVOT CI 3.1 l/min/m2 Pulmonic Valve Name Value Normal RVOT Doppler RVOT Peak Gradient 1 mmHg PV Doppler PV Peak Gradient 2 mmHg Mitral Valve Name Value Normal MV Doppler MV Decel Mono 712 cm/s2 MV PHT 42 ms MV Area (PHT) 5.2 cm2 4.0-5.0 MV Diastolic Function MV E Peak Velocity 103 cm/s MV A Peak Velocity 3 cm/s MV E/A 41.0 MV Decel Time 145 ms MV Annular TDI MV E/e' (Septal) 28.6 <=8.0 MV E/e' (Lateral) 13.4 <=8.0 MV E/e' (Average) 21.0 Tricuspid Valve Name Value Normal TV Regurgitation Doppler TR Peak Velocity 288 cm/s TR Peak Gradient 21 mmHg Estimated PAP/RSVP RA Pressure 10 mmHg <=5 PA Systolic Pressure 43 mmHg <36 RV Systolic Pressure 43 mmHg <36 Aorta Name Value Normal Ascending Aorta Ao Root Diameter (MM) 2.5 cm Ao Root Diam Index (MM) 1.4 cm/m2 Aortic Valve Name Value Normal AV Doppler AV Peak Velocity 222 cm/s AV Peak Gradient 15 mmHg AV Mean Gradient 8 mmHg AV VTI 35 cm AV Area (Cont Eq VTI) 1.9 cm2 >=3.0 AV Area (Cont Eq Walter) 2.5 cm2 AV Regurgitation 2D LVOT Area 3.1 cm2 AV Regurgitation Doppler AR Decel Time 687 ms AR Decel Mono 622 cm/s2 AR PHT 199 ms Ventricles Name Value Normal LV Dimensions 2D/MM IVS Diastolic Thickness (2D) 0.9 cm 0.6-1.0 LVID Diastole (2D) 5.1 cm 3.8-5.2 LVIW Diastolic Thickness (2D) 0.9 cm 0.6-0.9 LVID Systole (2D) 3.1 cm 2.2-3.5 LVOT Diameter 2.0 cm LV Mass (2D Cubed) 160.34 g 67.00-162.00 LV Mass Index (2D Cubed) 91 g/m2 43-95 Relative Wall Thickness (2D) 0.36 LV Fractional Shortening/Ejection Fraction 2D/MM LV Fractional Shortening (2D) 38 % 27-45 LV EF (2D Teicholz) 68 % 54-74 LV Diastolic Volume (4C MOD) 79 ml LV EF (4C MOD) 53 % LV Diastolic Volume (2C MOD) 71 ml LV EF (2C MOD) 58 % LV Diastolic Volume (BP MOD) 77 ml 46-106 LV Diastolic Volume Index (BP MOD) 44 ml/m2 29-61 LV Systolic Volume (BP MOD) 33 ml 14-42 LV Systolic Volume Index (BP MOD) 19 ml/m2 8-24 LV EF (BP MOD) 56 % 54-74 LV Diastolic Length (4C) 6.5 cm LV Systolic Length (4C) 6.0 cm LV Stroke Volume (4C MOD) 42 ml Atria Name Value Normal LA Dimensions LA Dimension (MM) 5.0 cm 2.7-3.8 LA Volume (4C A-L) 86 ml LA Volume (BP A-L) 78 ml RA Dimensions RA Area (4C) 32.8 cm2 <=18.0 Report Signatures
[2024-10-29] MEDS: SODIUM CHLORIDE 0.9% IV 1,000 ML 100 ML IV CONT (00:22)
[2024-10-29 00:41] LABS: Glucose Point of Care 99 mg/dl (65-105)
[2024-10-29 05:29] LABS: Hemoglobin 10.2 g/dL (12.0-15.0); Mean Corpuscular HGB Conc 31.9 g/dl (32-36); Mean Corpuscular Hemoglobin 32.1 pg (26-34); Mean Corpuscular Volume 100.6 fl (80-100); Mean Platelet Volume 10.1 fl (7.4-10.4); Platelet Count Result 182 k/mm3 (150-375); Red Blood Count 3.18 M/mm3 (4.2-5.4); Red Cell Distribution Width 13.3 % (11.5-14.5); White Blood Count 12.2 K/mm3 (4.5-10.0)
[2024-10-29 05:47] LABS: Alanine Aminotransferase 27 U/L (6-35); Albumin Level 2.2 g/dL (3.5-5.1); Alkaline Phosphatase 83 U/L (38-126); Anion Gap 3 mmol/L (4-12); Aspartate Amino Transferase 40 U/L (14-36); Bilirubin,Total 0.6 mg/dL (0.2-1.3); Blood Urea Nitrogen 40 mg/dL (7-17); Calcium 8.7 mg/dL (8.4-10.2); Carbon Dioxide 30 mmol/L (22-30); Chloride 103 mmol/L (98-107); Estimated CRCL calculation 34 ml/min; Estimated Glomerular Filt Rate 55; Glucose 95 mg/dL (65-110); Magnesium 2.4 mg/dL (1.6-2.3); Potassium 4.1 mmol/L (3.4-5.0); Sodium 136 mmol/L (137-145)
[2024-10-29 06:16] LABS: Thyroid Stimulating Hormone Reflex 0.274 uIU/mL (0.465-4.68)
[2024-10-29 07:03] LABS: Free T4 Free Thyroxine Reflex 1.93 ng/dL (0.78-2.19)
--- NOTE | 2024-10-29 07:50 | P.PNIM_ITS ---
Progress Note: A&P Assessment and Plan (1) Altered mental status: Code(s): R41.82 - Altered mental status, unspecified Status: Acute (2) Sepsis: Code(s): A41.9 - Sepsis, unspecified organism Status: Acute (3) Urinary tract infection: Code(s): N39.0 - Urinary tract infection, site not specified Status: Acute (4) Subarachnoid hemorrhage: Code(s): I60.9 - Nontraumatic subarachnoid hemorrhage, unspecified Status: Acute (5) Atrial fibrillation with rapid ventricular response: Code(s): I48.91 - Unspecified atrial fibrillation Status: Acute (6) Chronic anticoagulation: Code(s): Z79.01 - retirement (current) use of anticoagulants Status: Acute (7) Chronic kidney disease: Code(s): N18.9 - Chronic kidney disease, unspecified Status: Acute Plan This is an 89-year-old female with a reported history of coronary artery disease, congestive heart failure, hypertension, aortic valve stenosis, ascending aortic aneurysm, paroxysmal atrial fibrillation on chronic anticoagulation, and chronic kidney disease who presented to the emergency department via EMS for evaluation of altered mental status. The patient had been living in independent living up until recently. she was hospitalized at [facility] a few weeks ago after a fall and she is currently at [facility] for rehab where things have not been going well. She has gone downhill and it does not sound as though she is progressing. She has been more fatigued the last several days and has been complaining of body aches. Her appetite has been poor in her oral intake has dropped off. During rounds this morning staff found her to be alert and oriented to self only which is not her baseline (alert and oriented x4). She was febrile when they found her with a temperature of 101? F and EMS was summoned. In the ED: Vital signs on arrival include a temperature of 100.6? F, blood pressure 112/72, pulse 136, respiratory 24, SpO2 96%. Labs are significant for WBC count of 13.1, hemoglobin 11.2, PTT 37.8, INR 3.8, PTT 37.8, sodium 134, BUN 32, creatinine 1.01, lactic acid 1.6, CRP 25.2. Urine was positive for 2+ protein, trace ketones, 3+ blood, nitrates 3+ leukocyte esterase, the 1 to 100 RBC, > 100 WBC, and 4+ bacteria. She was negative for influenza, RSV, and COVID. Head CT showed a small subarachnoid hemorrhage within the left frontal lobe. Chest x-ray was without acute findings. Right shoulder x-ray showed no acute findings. She was started on ceftriaxone for urinary tract infection and Kcentra as she is on apixaban and she is being admitted in this setting. Of note, the ED physician had a discussion with the patient's family who stated that they would not want the patient transferred to a tertiary care facility as they would not want any intervention if the subarachnoid hemorrhage increased in size. Depending on her course over the next 24 hours, they may consider hospice. Repeat CT head this morning so small amount of acute subarachnoid hemorrhage in the right frontal region which is new from prior examination. Previously noted small amount of subarachnoid hemorrhage in the left frontal region is decreased or improved. There are atrophy and white matter changes chronically. Sepsis Acute encephalopathy Recent falls Subarachnoid hemorrhage left frontal lobe Chronic anticoagulation with apixaban received Kcentra UTI Bacteremia with Gram-positive cocci in clusters start IV vancomycin Atrial fibrillation chronic received diltiazem bolus 10 mg in the ER CKD stage 3 Do not resuscitate Subjective Date/time seen: 10/29/24 07:50 Interval history: Chart reviewed fall 3 weeks ago was seen at [facility] increased fatigue over past 3 days with diffuse body aches decreased p.o. intake Review of Systems Review of Systems: ROS unobtainable: Yes unobtainable due to medical condition and unobtainable due to mental status Exam Narrative: General: Moderately ill-appearing elderly female not in acute distress HEENT: PERRL, EOMI. Sclera anicteric. Tacky mucous membranes. Neck: Supple. No midline vertebral tenderness, JVD, lymphadenopathy, or obvious bruits or thyromegaly. Respiratory: Respirations are nonlabored. Lung sounds are diminished due to poor effort. Cardiovascular: Irregularly irregular rate and rhythm. Soft murmur at the upper sternal border. Gastrointestinal: Abdomen is soft, nontender, and nondistended with positive bowel sounds. Skin: Warm and dry. Extremities: No cyanosis or clubbing. Bilateral lower extremity edema. Peripheral pulses palpable. Neurological: Oriented to with place and person not to time Cranial nerves 2-12 are grossly intact. No obvious facial asymmetry. She was noted to move upper and lower extremities. No focal deficits Psychiatric: Confused and cooperative. Objective Data Vital Signs Vital Signs: Vital Signs - 24 hr 10/28/24 11:15 10/28/24 11:26 10/28/24 11:34 Temperature 100.6 F H 100.9 F H Pulse Rate 136 H 109 H Respiratory Rate 24 H Blood Pressure 112/72 Pulse Oximetry 96 Oxygen Delivery Oxygen Flow Rate 10/28/24 12:02 10/28/24 12:28 10/28/24 12:46 Temperature Pulse Rate 105 H 114 H Respiratory Rate 24 H 28 H Blood Pressure 102/58 L 108/69 Pulse Oximetry 92 94 Oxygen Delivery Room Air Oxygen Flow Rate 10/28/24 14:05 10/28/24 14:08 10/28/24 14:56 Temperature 99.5 F Pulse Rate 120 H 145 H 109 H Respiratory Rate 28 H 36 H 21 H Blood Pressure 107/78 107/78 93/53 L Pulse Oximetry 93 94 95 Oxygen Delivery Oxygen Flow Rate 10/28/24 15:30 10/28/24 15:30 10/28/24 16:02 Temperature Pulse Rate 100 103 H 113 H Respiratory Rate 24 H 27 H 22 H Blood Pressure 99/60 L 99/60 L 97/64 L Pulse Oximetry Oxygen Delivery Oxygen Flow Rate 10/28/24 17:00 10/28/24 18:00 10/28/24 19:58 Temperature 98.3 F Pulse Rate 97 94 Respiratory Rate 20 Blood Pressure 92/60 L Pulse Oximetry 95 93 Oxygen Delivery Nasal Cannula Oxygen Flow Rate 2 10/28/24 20:00 10/28/24 20:00 10/28/24 22:00 Temperature Pulse Rate 100 95 Respiratory Rate Blood Pressure Pulse Oximetry 93 Oxygen Delivery Nasal Cannula Oxygen Flow Rate 2 10/28/24 23:20 10/28/24 23:21 10/29/24 00:00 Temperature 97.6 F Pulse Rate 107 H 90 Respiratory Rate 18 Blood Pressure 100/52 L Pulse Oximetry 95 96 Oxygen Delivery Nasal Cannula Oxygen Flow Rate 2 10/29/24 04:00 10/29/24 04:00 10/29/24 04:00 Temperature 97.6 F Pulse Rate 97 83 Respiratory Rate 18 Blood Pressure 96/48 L Pulse Oximetry 96 94 Oxygen Delivery Nasal Cannula Oxygen Flow Rate 2 10/29/24 06:00 Temperature Pulse Rate 99 Respiratory Rate Blood Pressure Pulse Oximetry Oxygen Delivery Oxygen Flow Rate Intake/Output Intake/Output: Intake & Output 10/26/24 10/27/24 10/28/24 10/29/24 23:59 23:59 23:59 23:59 Intake Total 1130 Output Total 200 150 Balance 930 -150 Meds/Results Medications: Active Medications Generic Name Dose Route Start Last Admin Trade Name Freq PRN Reason Stop Dose Admin Acetaminophen 650 mg 10/28/24 23:51 Acetaminophen 650 Mg Suppository RECTAL Q6H PRN Mild Pain (1-3) or Fever Ceftriaxone Sodium 1 gm in 50 mls @ 100 mls/hr 10/29/24 12:00 Rocephin 1 Gm/Ns 50 Ml IVPB Q24H SAMMI Sodium Chloride 1,000 mls @ 100 mls/hr 10/28/24 23:51 10/29/24 00:22 Normal Saline Iv IV CONT 10/29/24 09:50 100 mls/hr .Q10H ONE Administration Radiology Results: ITS Impressions Chest X-Ray 10/28/24 12:09 Impression: Probable small left pleural effusion. Linear scarring right lung base. Shoulder X-Ray 10/28/24 15:06 IMPRESSION: No acute osseous abnormality right shoulder. 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 Head CT 10/29/24 06:24 Impression: Small amount of acute subarachnoid hemorrhage in the right frontal region, new from prior exam. Previously noted small amount of subarachnoid hemorrhage in the left frontal region is decreased/improved. Atrophy and chronic white matter changes, as above. Labs Labs: Laboratory Results - last 24 hr 10/28/24 10/28/24 10/28/24 11:25 11:54 12:55 WBC 13.1 H RBC 3.46 L Hgb 11.2 L Hct 35.1 L MCV 101.4 H MCH 32.4 MCHC 31.9 L RDW 13.2 Plt Count 233 MPV 9.5 Immature Gran % (Auto) 1.1 H Neut % (Auto) 87.7 H Lymph % (Auto) 3.8 L [place] % (Auto) 5.0 Eos % (Auto) 2.2 Baso % (Auto) 0.2 Lymph # (Auto) 0.50 L [place] # (Auto) 0.7 H Eos # (Auto) 0.3 Baso # (Auto) 0.0 Abs Immat Gran (auto) 0.15 H Absolute Neuts (auto) 11.5 H Absolute Nucleated RBC 0.000 Nucleated RBC % 0.0 PT 37.8 H INR 3.8 APTT 37.8 H Sodium 134 L Potassium 4.7 Chloride 99 Carbon Dioxide 27 Anion Gap 8 BUN 32 H Creatinine 1.01 H Estim Creat Clear Calc 32 Estimated GFR 52 L Glucose 102 POC Capillary Glucose 106 H Lactic Acid 1.6 Calcium 9.1 Magnesium Total Bilirubin 0.8 AST 50 H ALT 33 Alkaline Phosphatase 101 C-Reactive Protein 25.2 H Total Protein 7.0 Albumin 2.7 L TSH (Reflex) Free T4 Urine Color Dark yellow Urine Appearance Turbid H Urine pH 6.5 Ur Specific [place] 1.024 Urine Protein 2+ H Urine Glucose (UA) Negative Urine Ketones Trace H Ur Blood (Man) 3+ H Urine Nitrate Positive H Urine Bilirubin 1+ H Urine Urobilinogen 1.0 Leukocyte Esterase Rfl 3+ H Urine RBC 51-100 H Urine WBC >100 Ur Squamous Epith Cells None seen Urine Bacteria 4+ H Influenza A (RT-PCR) Influenza B (RT-PCR) RSV (RT-PCR) SARS-CoV-2 RNA (RT-PCR) 10/28/24 10/29/24 10/29/24 14:15 00:33 04:14 WBC 12.2 H RBC 3.18 L Hgb 10.2 L Hct 32.0 L MCV 100.6 H MCH 32.1 MCHC 31.9 L RDW 13.3 Plt Count 182 MPV 10.1 Immature Gran % (Auto) Neut % (Auto) Lymph % (Auto) [place] % (Auto) Eos % (Auto) Baso % (Auto) Lymph # (Auto) [place] # (Auto) Eos # (Auto) Baso # (Auto) Abs Immat Gran (auto) Absolute Neuts (auto) Absolute Nucleated RBC Nucleated RBC % PT INR APTT Sodium 136 L Potassium 4.1 Chloride 103 Carbon Dioxide 30 Anion Gap 3 L BUN 40 H Creatinine 0.95 Estim Creat Clear Calc 34 Estimated GFR 55 L Glucose 95 POC Capillary Glucose 99 Lactic Acid Calcium 8.7 Magnesium 2.4 H Total Bilirubin 0.6 AST 40 H ALT 27 Alkaline Phosphatase 83 C-Reactive Protein Total Protein 6.0 L Albumin 2.2 L TSH (Reflex) 0.274 L Free T4 1.93 Urine Color Urine Appearance Urine pH Ur Specific [place] Urine Protein Urine Glucose (UA) Urine Ketones Ur Blood (Man) Urine Nitrate Urine Bilirubin Urine Urobilinogen Leukocyte Esterase Rfl Urine RBC Urine WBC Ur Squamous Epith Cells Urine Bacteria Influenza A (RT-PCR) Negative Influenza B (RT-PCR) Negative RSV (RT-PCR) Negative SARS-CoV-2 RNA (RT-PCR) Negative
[2024-10-29] MEDS: VANCOMYCIN 1,750 MG/NS 500 ML 1,750 MG/500 ML BAG 250 MG IVPB (08:42)
[2024-10-29 11:46] LABS: Glucose Point of Care 96 mg/dl (65-105)
[2024-10-29] MEDS: SODIUM CHLORIDE 0.9% IV 1,000 ML 60 ML IV CONT (12:47)
--- NOTE | 2024-10-29 13:29 | PCSTNOTE ---
Please refer to the Bedside Swallow Evaluation in the EMR. Please note, silent aspiration cannot be ruled out at bedside.
[2024-10-29] MEDS: ALBUTEROL SULFATE (*SP) AEROSOL 1 PUFF 2 PUFF INHALATION ×2 (14:35→21:29)
[2024-10-30] VITALS (24 sets, daily range): BP systolic 97–114; BP diastolic 42–76; PULSE 84–107; RESP 16–22; TEMP 36.4–36.9; O2SAT 88–99
[2024-10-30] MEDS: SODIUM CHLORIDE 0.9% IV 1,000 ML 60 ML IV CONT ×2 (01:28→22:00)
[2024-10-30] MEDS: ALBUTEROL SULFATE (*SP) AEROSOL 1 PUFF 2 PUFF INHALATION ×4 (02:29→19:19)
[2024-10-30 04:28] LABS: Basophils Percent Auto 0.2 % (0.2-1.2); Immature Granulocyte Absolute 0.12 K/mm3 (0.00-0.031); Immature Granulocyte Percent A 0.9 % (0-0.5); Lymphocytes Absolute Auto 1.42 K/mm3 (0.9-3.2); Mean Corpuscular HGB Conc 31.3 g/dl (32-36); Mean Corpuscular Hemoglobin 32.4 pg (26-34); Mean Corpuscular Volume 103.6 fl (80-100); Mean Platelet Volume 10.3 fl (7.4-10.4); Monocytes Absolute Auto 1.4 K/mm3 (0.1-0.6); Monocytes Percent Auto 10.6 % (2.6-8.5); Neutrophils Percent Auto 77.3 % (45.5-73.1); Platelet Count Result 151 k/mm3 (150-375); Red Blood Count 3.09 M/mm3 (4.2-5.4); Red Cell Distribution Width 13.7 % (11.5-14.5); White Blood Count 12.9 K/mm3 (4.5-10.0)
[2024-10-30 04:37] LABS: Alanine Aminotransferase 110 U/L (6-35); Albumin Level 2.2 g/dL (3.5-5.1); Alkaline Phosphatase 108 U/L (38-126); Anion Gap 5 mmol/L (4-12); Aspartate Amino Transferase 236 U/L (14-36); Bilirubin,Total 0.4 mg/dL (0.2-1.3); Blood Urea Nitrogen 39 mg/dL (7-17); Carbon Dioxide 27 mmol/L (22-30); Chloride 108 mmol/L (98-107); Estimated CRCL calculation 42 ml/min; Estimated Glomerular Filt Rate > 60; Glucose 149 mg/dL (65-110); Magnesium 2.4 mg/dL (1.6-2.3); Potassium 4.1 mmol/L (3.4-5.0); Sodium 140 mmol/L (137-145)
[2024-10-30] MEDS: MULTIVITAMINS THERAPEUTIC TAB (*BKC) 1 TABLET PO (08:31)
[2024-10-30] MEDS: VANCOMYCIN 1,000 MG/NS 250 ML 1,000 MG/250 ML BAG 166.67 MG IVPB (08:32)
[2024-10-30] MEDS: ACETAMINOPHEN 325 MG TABLET 650 MG PO ×2 (08:34→21:34)
--- NOTE | 2024-10-30 11:28 | PC.NURSE ---
phoned provider Dr. Ugarte at 1110a and left message informing blood culture resulted MRSA positive. Jose Guadalupe Pandey RN
--- NOTE | 2024-10-30 13:30 | PM.IMPN ---
Progress Note: A&P Assessment and Plan (1) Altered mental status: Code(s): R41.82 - Altered mental status, unspecified Status: Acute (2) Sepsis: Code(s): A41.9 - Sepsis, unspecified organism Status: Acute (3) Urinary tract infection: Code(s): N39.0 - Urinary tract infection, site not specified Status: Acute (4) Subarachnoid hemorrhage: Code(s): I60.9 - Nontraumatic subarachnoid hemorrhage, unspecified Status: Acute (5) Atrial fibrillation with rapid ventricular response: Code(s): I48.91 - Unspecified atrial fibrillation Status: Acute (6) Chronic anticoagulation: Code(s): Z79.01 - [facility] (current) use of anticoagulants Status: Acute (7) Chronic kidney disease: Code(s): N18.9 - Chronic kidney disease, unspecified Status: Acute Plan This is an 89-year-old female with a reported history of coronary artery disease, congestive heart failure, hypertension, aortic valve stenosis, ascending aortic aneurysm, paroxysmal atrial fibrillation on chronic anticoagulation, and chronic kidney disease who presented to the emergency department via EMS for evaluation of altered mental status. The patient had been living in independent living up until recently. she was hospitalized at [facility] a few weeks ago after a fall and she is currently at [facility] for rehab where things have not been going well. She has gone downhill and it does not sound as though she is progressing. She has been more fatigued the last several days and has been complaining of body aches. Her appetite has been poor in her oral intake has dropped off. During rounds this morning staff found her to be alert and oriented to self only which is not her baseline (alert and oriented x4). She was febrile when they found her with a temperature of 101? F and EMS was summoned. In the ED: Vital signs on arrival include a temperature of 100.6? F, blood pressure 112/72, pulse 136, respiratory 24, SpO2 96%. Labs are significant for WBC count of 13.1, hemoglobin 11.2, PTT 37.8, INR 3.8, PTT 37.8, sodium 134, BUN 32, creatinine 1.01, lactic acid 1.6, CRP 25.2. Urine was positive for 2+ protein, trace ketones, 3+ blood, nitrates 3+ leukocyte esterase, the 1 to 100 RBC, > 100 WBC, and 4+ bacteria. She was negative for influenza, RSV, and COVID. Head CT showed a small subarachnoid hemorrhage within the left frontal lobe. Chest x-ray was without acute findings. Right shoulder x-ray showed no acute findings. She was started on ceftriaxone for urinary tract infection and Kcentra as she is on apixaban and she is being admitted in this setting. Of note, the ED physician had a discussion with the patient's family who stated that they would not want the patient transferred to a tertiary care facility as they would not want any intervention if the subarachnoid hemorrhage increased in size. Depending on her course over the next 24 hours, they may consider hospice. Repeat CT head this morning so small amount of acute subarachnoid hemorrhage in the right frontal region which is new from prior examination. Previously noted small amount of subarachnoid hemorrhage in the left frontal region is decreased or improved. There are atrophy and white matter changes chronically. Sepsis Acute encephalopathy continues to improve Recent falls Subarachnoid hemorrhage left frontal lobe Chronic anticoagulation with apixaban received Kcentra UTI urine culture with MRSA Bacteremia with MRSA start IV vancomycin repeat blood culture in a.m. TTE 10/29/2024 50-55% abnormal diastolic function mildly reduced right ventricular systolic function mild aortic valve stenosis mild pulmonary hypertension mild AR/UT/TR Atrial fibrillation chronic received diltiazem bolus 10 mg in the ER CKD stage 3 Do not resuscitate Subjective Date/time seen: 10/30/24 13:30 Interval history: No overnight events. Patient more awake and oriented today. Family at bedside and discussed with him. Review of Systems Review of Systems: All systems reviewed & are unremarkable except as noted in HPI and below Exam Narrative: General: More alert and awake, elderly female not in acute distress HEENT: PERRL, EOMI. Sclera anicteric. Tacky mucous membranes. Neck: Supple. No midline vertebral tenderness, JVD, lymphadenopathy, or obvious bruits or thyromegaly. Respiratory: Respirations are nonlabored. Lung sounds are diminished due to poor effort. Cardiovascular: Irregularly irregular rate and rhythm. Soft murmur at the upper sternal border. Gastrointestinal: Abdomen is soft, nontender, and nondistended with positive bowel sounds. Skin: Warm and dry. Extremities: No cyanosis or clubbing. Bilateral lower extremity edema. Peripheral pulses palpable. Neurological: Oriented to with place and person not to time Cranial nerves 2-12 are grossly intact. No obvious facial asymmetry. She was noted to move upper and lower extremities. No focal deficits Psychiatric: Calm and cooperative. Objective Data Vital Signs Vital Signs: Vital Signs - 24 hr 10/29/24 14:00 10/29/24 14:37 10/29/24 14:37 Temperature Pulse Rate 106 H 101 H Respiratory Rate 20 Blood Pressure Pulse Oximetry 98 Oxygen Delivery Nasal Cannula Oxygen Flow Rate 1 Fraction of Inspired Oxygen 10/29/24 15:59 10/29/24 16:00 10/29/24 16:00 Temperature 98 F Pulse Rate 103 H 122 H Respiratory Rate 20 Blood Pressure 114/70 Pulse Oximetry 94 93 Oxygen Delivery Nasal Cannula Oxygen Flow Rate 1 Fraction of Inspired Oxygen 10/29/24 18:00 10/29/24 19:22 10/29/24 20:00 Temperature 98.5 F Pulse Rate 101 H 119 H 110 H Respiratory Rate 24 H Blood Pressure 106/52 L Pulse Oximetry 98 Oxygen Delivery Oxygen Flow Rate Fraction of Inspired Oxygen 10/29/24 20:20 10/29/24 21:30 10/29/24 21:32 Temperature Pulse Rate 119 H 115 H 115 H Respiratory Rate 24 H 20 20 Blood Pressure Pulse Oximetry 98 95 Oxygen Delivery Nasal Cannula Nasal Cannula Oxygen Flow Rate 1 1 Fraction of Inspired Oxygen 10/29/24 22:00 10/30/24 00:00 10/30/24 00:00 Temperature 98.4 F Pulse Rate 104 H 107 H 101 H Respiratory Rate 20 Blood Pressure 108/71 Pulse Oximetry 96 Oxygen Delivery Oxygen Flow Rate Fraction of Inspired Oxygen 10/30/24 00:18 10/30/24 00:30 10/30/24 02:00 Temperature Pulse Rate 107 H 103 H 105 H Respiratory Rate 20 20 Blood Pressure Pulse Oximetry 96 95 Oxygen Delivery Nasal Cannula Room Air Oxygen Flow Rate 1 Fraction of Inspired Oxygen 10/30/24 03:20 10/30/24 03:21 10/30/24 04:00 Temperature 98.1 F Pulse Rate 105 H 105 H 107 H Respiratory Rate 22 H 22 H Blood Pressure 100/57 L Pulse Oximetry 95 88 L Oxygen Delivery Room Air Oxygen Flow Rate Fraction of Inspired Oxygen 10/30/24 06:30 10/30/24 07:24 10/30/24 08:00 Temperature 98.3 F Pulse Rate 107 H 99 Respiratory Rate 18 Blood Pressure 107/42 L Pulse Oximetry 98 98 Oxygen Delivery Nasal Cannula Oxygen Flow Rate 1 Fraction of Inspired Oxygen 10/30/24 08:00 10/30/24 08:35 10/30/24 08:35 Temperature Pulse Rate 102 H 100 Respiratory Rate 16 Blood Pressure Pulse Oximetry 97 Oxygen Delivery Nasal Cannula Oxygen Flow Rate 1 Fraction of Inspired Oxygen 2 10/30/24 10:00 10/30/24 11:28 10/30/24 12:00 Temperature 98.3 F Pulse Rate 91 95 Respiratory Rate 18 Blood Pressure 99/51 L Pulse Oximetry 95 95 Oxygen Delivery Nasal Cannula Oxygen Flow Rate 1 Fraction of Inspired Oxygen 10/30/24 12:00 Temperature Pulse Rate 92 Respiratory Rate Blood Pressure Pulse Oximetry Oxygen Delivery Oxygen Flow Rate Fraction of Inspired Oxygen Intake/Output Intake/Output: Intake & Output 10/27/24 10/28/24 10/29/24 10/30/24 23:59 23:59 23:59 23:59 Intake Total 1130 1790 961 Output Total 200 475 250 Balance 930 1315 711 Meds/Results Medications: Active Medications Generic Name Dose Route Start Last Admin Trade Name Freq PRN Reason Stop Dose Admin Acetaminophen 650 mg 10/28/24 23:51 Acetaminophen 650 Mg Suppository RECTAL Q6H PRN Mild Pain (1-3) or Fever Acetaminophen 650 mg 10/29/24 13:09 10/30/24 08:34 Acetaminophen 325 Mg Tablet PO 650 mg Q6H PRN Administration pain Albuterol 2 puff 10/29/24 13:15 10/30/24 08:34 Albuterol Sulfate (*Sp) Aerosol 1 Puff INHALATION 2 puff Q6HRT SAMMI Administration Carvedilol 6.25 mg 10/29/24 21:00 Carvedilol 6.25 Mg Tablet PO Q12HR SAMMI Guaifenesin/Dextromethorphan 1 tab 10/29/24 13:09 Guaifenesin 600 Mg/Dextromethorphan 30 Mg Sr Tab 12 Hr PO BID PRN cough Ceftriaxone Sodium 1 gm in 50 mls @ 100 mls/hr 10/29/24 12:00 10/30/24 12:11 Rocephin 1 Gm/Ns 50 Ml IVPB 100 mls/hr Q24H SAMMI Administration Sodium Chloride 1,000 mls @ 60 mls/hr 10/29/24 12:40 10/30/24 01:28 Normal Saline Iv IV CONT 60 mls/hr .[id number] SAMMI Administration Vancomycin HCl 1,000 mg in 250 mls @ 166.667 mls/hr 10/30/24 09:00 10/30/24 08:32 Vancomycin 1,000 Mg/Ns 250 Ml IVPB 166.67 mls/hr Q24H SAMMI Administration Multivitamins Therapeutic 1 tablet 10/30/24 09:00 10/30/24 08:31 Multivitamins Therapeutic Tab (*Bkc) PO 1 tablet DAILY SAMMI Administration Perflutren Lipid Microsphere 0 ml 10/29/24 13:10 Perflutren Lipid Microspheres 1.5 Ml Vial Diluted To 10 Ml Total Volume IV PUSH 11/01/24 13:11 ONCE PRN adequate visualization Protocol Radiology Results: ITS Impressions Chest X-Ray 10/28/24 12:09 Impression: Probable small left pleural effusion. Linear scarring right lung base. Shoulder X-Ray 10/28/24 15:06 IMPRESSION: No acute osseous abnormality right shoulder. 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 Head CT 10/29/24 06:24 Impression: Small amount of acute subarachnoid hemorrhage in the right frontal region, new from prior exam. Previously noted small amount of subarachnoid hemorrhage in the left frontal region is decreased/improved. Atrophy and chronic white matter changes, as above. Labs Labs: Laboratory Results - last 24 hr 10/30/24 04:20 WBC 12.9 H RBC 3.09 L Hgb 10.0 L Hct 32.0 L MCV 103.6 H MCH 32.4 MCHC 31.3 L RDW 13.7 Plt Count 151 MPV 10.3 Immature Gran % (Auto) 0.9 H Neut % (Auto) 77.3 H Lymph % (Auto) 11.0 L [place] % (Auto) 10.6 H Eos % (Auto) 0.0 Baso % (Auto) 0.2 Lymph # (Auto) 1.42 [place] # (Auto) 1.4 H Eos # (Auto) 0.0 Baso # (Auto) 0.0 Abs Immat Gran (auto) 0.12 H Absolute Neuts (auto) 10.0 H Absolute Nucleated RBC 0.000 Nucleated RBC % 0.0 Sodium 140 Potassium 4.1 Chloride 108 H Carbon Dioxide 27 Anion Gap 5 BUN 39 H Creatinine 0.77 Estim Creat Clear Calc 42 Estimated GFR > 60 Glucose 149 H Calcium 9.0 Magnesium 2.4 H Total Bilirubin 0.4 AST 236 H ALT 110 H Alkaline Phosphatase 108 Total Protein 6.0 L Albumin 2.2 L
[2024-10-31] VITALS (19 sets, daily range): BP systolic 104–118; BP diastolic 49–73; PULSE 68–108; RESP 16–22; TEMP 36.8–37; O2SAT 94–98
[2024-10-31] MEDS: ALBUTEROL SULFATE (*SP) AEROSOL 1 PUFF 2 PUFF INHALATION ×4 (01:07→20:35)
[2024-10-31 04:42] LABS: Basophils Percent Auto 0.2 % (0.2-1.2); Eosinophils Absolute Auto 0.1 K/mm3 (0-0.3); Eosinophils Percent Auto 0.4 % (0-4.4); Hematocrit 30.9 % (37.0-47.0); Hemoglobin 9.8 g/dL (12.0-15.0); Immature Granulocyte Absolute 0.28 K/mm3 (0.00-0.031); Immature Granulocyte Percent A 2.1 % (0-0.5); Lymphocytes Absolute Auto 1.31 K/mm3 (0.9-3.2); Lymphocytes Percent Auto 9.7 % (18.3-44.2); Mean Corpuscular HGB Conc 31.7 g/dl (32-36); Mean Corpuscular Hemoglobin 32.5 pg (26-34); Mean Corpuscular Volume 102.3 fl (80-100); Mean Platelet Volume 10.5 fl (7.4-10.4); Monocytes Percent Auto 7.1 % (2.6-8.5); Neutrophils Absolute Auto 10.9 K/mm3 (1.3-6.7); Neutrophils Percent Auto 80.5 % (45.5-73.1); Platelet Count Result 167 k/mm3 (150-375); Red Blood Count 3.02 M/mm3 (4.2-5.4); Red Cell Distribution Width 13.6 % (11.5-14.5); White Blood Count 13.5 K/mm3 (4.5-10.0)
[2024-10-31 05:01] LABS: Alanine Aminotransferase 110 U/L (6-35); Albumin Level 2.1 g/dL (3.5-5.1); Alkaline Phosphatase 105 U/L (38-126); Anion Gap 4 mmol/L (4-12); Aspartate Amino Transferase 110 U/L (14-36); Bilirubin,Total 0.4 mg/dL (0.2-1.3); Blood Urea Nitrogen 36 mg/dL (7-17); Carbon Dioxide 28 mmol/L (22-30); Chloride 110 mmol/L (98-107); Estimated CRCL calculation 53 ml/min; Estimated Glomerular Filt Rate > 60; Glucose 144 mg/dL (65-110); Magnesium 2.3 mg/dL (1.6-2.3); Potassium 4.1 mmol/L (3.4-5.0); Sodium 142 mmol/L (137-145)
[2024-10-31] MEDS: MULTIVITAMINS THERAPEUTIC TAB (*BKC) 1 TABLET PO (08:43)
[2024-10-31 08:48] LABS: Vancomycin Trough 8.6 ug/mL (10.0-20.0)
[2024-10-31] MEDS: VANCOMYCIN 1,000 MG/NS 250 ML 1,000 MG/250 ML BAG 166.67 MG IVPB (10:22)
--- NOTE | 2024-10-31 13:20 | PM.IMPN ---
Progress Note: A&P Assessment and Plan (1) Altered mental status: Code(s): R41.82 - Altered mental status, unspecified Status: Acute (2) Sepsis: Code(s): A41.9 - Sepsis, unspecified organism Status: Acute (3) Urinary tract infection: Code(s): N39.0 - Urinary tract infection, site not specified Status: Acute (4) Subarachnoid hemorrhage: Code(s): I60.9 - Nontraumatic subarachnoid hemorrhage, unspecified Status: Acute (5) Atrial fibrillation with rapid ventricular response: Code(s): I48.91 - Unspecified atrial fibrillation Status: Acute (6) Chronic anticoagulation: Code(s): Z79.01 - shelter (current) use of anticoagulants Status: Acute (7) Chronic kidney disease: Code(s): N18.9 - Chronic kidney disease, unspecified Status: Acute Plan This is an 89-year-old female with a reported history of coronary artery disease, congestive heart failure, hypertension, aortic valve stenosis, ascending aortic aneurysm, paroxysmal atrial fibrillation on chronic anticoagulation, and chronic kidney disease who presented to the emergency department via EMS for evaluation of altered mental status. The patient had been living in independent living up until recently. she was hospitalized at [facility] a few weeks ago after a fall and she is currently at [facility] for rehab where things have not been going well. She has gone downhill and it does not sound as though she is progressing. She has been more fatigued the last several days and has been complaining of body aches. Her appetite has been poor in her oral intake has dropped off. During rounds this morning staff found her to be alert and oriented to self only which is not her baseline (alert and oriented x4). She was febrile when they found her with a temperature of 101? F and EMS was summoned. In the ED: Vital signs on arrival include a temperature of 100.6? F, blood pressure 112/72, pulse 136, respiratory 24, SpO2 96%. Labs are significant for WBC count of 13.1, hemoglobin 11.2, PTT 37.8, INR 3.8, PTT 37.8, sodium 134, BUN 32, creatinine 1.01, lactic acid 1.6, CRP 25.2. Urine was positive for 2+ protein, trace ketones, 3+ blood, nitrates 3+ leukocyte esterase, the 1 to 100 RBC, > 100 WBC, and 4+ bacteria. She was negative for influenza, RSV, and COVID. Head CT showed a small subarachnoid hemorrhage within the left frontal lobe. Chest x-ray was without acute findings. Right shoulder x-ray showed no acute findings. She was started on ceftriaxone for urinary tract infection and Kcentra as she is on apixaban and she is being admitted in this setting. Of note, the ED physician had a discussion with the patient's family who stated that they would not want the patient transferred to a tertiary care facility as they would not want any intervention if the subarachnoid hemorrhage increased in size. Depending on her course over the next 24 hours, they may consider hospice. Repeat CT head this morning so small amount of acute subarachnoid hemorrhage in the right frontal region which is new from prior examination. Previously noted small amount of subarachnoid hemorrhage in the left frontal region is decreased or improved. There are atrophy and white matter changes chronically. Sepsis Acute encephalopathy continues to improve Recent falls Subarachnoid hemorrhage left frontal lobe Chronic anticoagulation with apixaban received Kcentra UTI urine culture with MRSA Bacteremia with MRSA start IV vancomycin repeat blood culture in a.m. TTE 10/29/2024 50-55% abnormal diastolic function mildly reduced right ventricular systolic function mild aortic valve stenosis mild pulmonary hypertension mild AR/DC/TR Atrial fibrillation chronic received diltiazem bolus 10 mg in the ER CKD stage 3 Do not resuscitate Subjective Date/time seen: 10/31/24 13:20 Interval history: Patient had no overnight events. Patient more sleepy today. Discussed with nursing staff. Labs reviewed. Review of Systems Review of Systems: ROS unobtainable: Yes unobtainable due to mental status Exam Narrative: General: Somnolent, elderly female not in acute distress HEENT: PERRL, EOMI. Sclera anicteric. Tacky mucous membranes. Neck: Supple. No midline vertebral tenderness, JVD, lymphadenopathy, or obvious bruits or thyromegaly. Respiratory: Respirations are nonlabored. Lung sounds are diminished due to poor effort. Cardiovascular: Irregularly irregular rate and rhythm. Soft murmur at the upper sternal border. Gastrointestinal: Abdomen is soft, nontender, and nondistended with positive bowel sounds. Skin: Warm and dry. Extremities: No cyanosis or clubbing. Bilateral lower extremity edema. Peripheral pulses palpable. Neurological: Oriented to with place and person not to time Cranial nerves 2-12 are grossly intact. No obvious facial asymmetry. She was noted to move upper and lower extremities. No focal deficits Psychiatric: Calm and cooperative. Objective Data Vital Signs Vital Signs: Vital Signs - 24 hr 10/30/24 14:00 10/30/24 14:39 10/30/24 16:00 Temperature 98.1 F Pulse Rate 87 90 87 Respiratory Rate 16 18 Blood Pressure 100/48 L Pulse Oximetry 96 Oxygen Delivery Oxygen Flow Rate Fraction of Inspired Oxygen 10/30/24 16:00 10/30/24 16:00 10/30/24 18:00 Temperature Pulse Rate 84 92 Respiratory Rate Blood Pressure Pulse Oximetry 96 Oxygen Delivery Nasal Cannula Oxygen Flow Rate 1 Fraction of Inspired Oxygen 10/30/24 19:19 10/30/24 19:19 10/30/24 19:37 Temperature Pulse Rate 97 Respiratory Rate 18 Blood Pressure Pulse Oximetry 99 96 Oxygen Delivery Nasal Cannula Nasal Cannula Oxygen Flow Rate 1 1 Fraction of Inspired Oxygen 24 10/30/24 20:00 10/30/24 20:00 10/30/24 22:06 Temperature 97.6 F Pulse Rate 98 100 100 Respiratory Rate 22 H Blood Pressure 114/76 Pulse Oximetry 96 Oxygen Delivery Oxygen Flow Rate Fraction of Inspired Oxygen 10/30/24 23:37 10/30/24 23:38 10/31/24 00:00 Temperature 98.4 F Pulse Rate 89 92 Respiratory Rate 20 Blood Pressure 97/62 L Pulse Oximetry 97 97 Oxygen Delivery Nasal Cannula Oxygen Flow Rate 1 Fraction of Inspired Oxygen 10/31/24 01:07 10/31/24 02:00 10/31/24 04:00 Temperature Pulse Rate 99 85 Respiratory Rate 16 Blood Pressure Pulse Oximetry 97 Oxygen Delivery Nasal Cannula Oxygen Flow Rate 1 Fraction of Inspired Oxygen 10/31/24 04:00 10/31/24 04:00 10/31/24 05:59 Temperature 98.3 F Pulse Rate 90 88 89 Respiratory Rate 20 Blood Pressure 109/49 L Pulse Oximetry 98 Oxygen Delivery Oxygen Flow Rate Fraction of Inspired Oxygen 10/31/24 07:20 10/31/24 08:00 10/31/24 08:00 Temperature 98.3 F Pulse Rate 83 68 Respiratory Rate 18 Blood Pressure 104/51 L Pulse Oximetry 98 98 Oxygen Delivery Nasal Cannula Oxygen Flow Rate 1 Fraction of Inspired Oxygen 10/31/24 08:34 10/31/24 10:00 10/31/24 11:35 Temperature 98.3 F Pulse Rate 100 85 100 Respiratory Rate 16 20 Blood Pressure 107/67 Pulse Oximetry 97 Oxygen Delivery Oxygen Flow Rate Fraction of Inspired Oxygen 10/31/24 12:00 10/31/24 12:00 Temperature Pulse Rate 92 Respiratory Rate Blood Pressure Pulse Oximetry 98 Oxygen Delivery Nasal Cannula Oxygen Flow Rate 1 Fraction of Inspired Oxygen Intake/Output Intake/Output: Intake & Output 10/28/24 10/29/24 10/30/24 10/31/24 23:59 23:59 23:59 23:59 Intake Total 1130 1790 2661 10 Output Total 200 475 500 600 Balance 930 1315 2161 -590 Meds/Results Medications: Active Medications Generic Name Dose Route Start Last Admin Trade Name Freq PRN Reason Stop Dose Admin Acetaminophen 650 mg 10/28/24 23:51 Acetaminophen 650 Mg Suppository RECTAL Q6H PRN Mild Pain (1-3) or Fever Acetaminophen 650 mg 10/29/24 13:09 10/30/24 21:34 Acetaminophen 325 Mg Tablet PO 650 mg Q6H PRN Administration pain Albuterol 2 puff 10/29/24 13:15 10/31/24 08:30 Albuterol Sulfate (*Sp) Aerosol 1 Puff INHALATION 2 puff Q6HRT SAMMI Administration Carvedilol 6.25 mg 10/29/24 21:00 Carvedilol 6.25 Mg Tablet PO Q12HR SAMMI Guaifenesin/Dextromethorphan 1 tab 10/29/24 13:09 Guaifenesin 600 Mg/Dextromethorphan 30 Mg Sr Tab 12 Hr PO BID PRN cough Ceftriaxone Sodium 1 gm in 50 mls @ 100 mls/hr 10/29/24 12:00 10/30/24 12:11 Rocephin 1 Gm/Ns 50 Ml IVPB 100 mls/hr Q24H SAMMI Administration Sodium Chloride 1,000 mls @ 60 mls/hr 10/29/24 12:40 10/30/24 22:00 Normal Saline Iv IV CONT 60 mls/hr .[id number] SAMMI Administration Vancomycin HCl 1,000 mg in 250 mls @ 166.667 mls/hr 10/31/24 09:00 10/31/24 10:22 Vancomycin 1,000 Mg/Ns 250 Ml IVPB 166.67 mls/hr Q12H SAMMI Administration Multivitamins Therapeutic 1 tablet 10/30/24 09:00 10/31/24 08:43 Multivitamins Therapeutic Tab (*Bkc) PO 1 tablet DAILY SAMMI Administration Perflutren Lipid Microsphere 0 ml 10/29/24 13:10 Perflutren Lipid Microspheres 1.5 Ml Vial Diluted To 10 Ml Total Volume IV PUSH 11/01/24 13:11 ONCE PRN adequate visualization Protocol Radiology Results: ITS Impressions Chest X-Ray 10/28/24 12:09 Impression: Probable small left pleural effusion. Linear scarring right lung base. Shoulder X-Ray 10/28/24 15:06 IMPRESSION: No acute osseous abnormality right shoulder. 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 Head CT 10/29/24 06:24 Impression: Small amount of acute subarachnoid hemorrhage in the right frontal region, new from prior exam. Previously noted small amount of subarachnoid hemorrhage in the left frontal region is decreased/improved. Atrophy and chronic white matter changes, as above. Labs Labs: Laboratory Results - last 24 hr 10/31/24 10/31/24 04:27 08:14 WBC 13.5 H RBC 3.02 L Hgb 9.8 L Hct 30.9 L MCV 102.3 H MCH 32.5 MCHC 31.7 L RDW 13.6 Plt Count 167 MPV 10.5 H Immature Gran % (Auto) 2.1 H Neut % (Auto) 80.5 H Lymph % (Auto) 9.7 L [place] % (Auto) 7.1 Eos % (Auto) 0.4 Baso % (Auto) 0.2 Lymph # (Auto) 1.31 [place] # (Auto) 1.0 H Eos # (Auto) 0.1 Baso # (Auto) 0.0 Abs Immat Gran (auto) 0.28 H Absolute Neuts (auto) 10.9 H Absolute Nucleated RBC 0.000 Nucleated RBC % 0.0 Sodium 142 Potassium 4.1 Chloride 110 H Carbon Dioxide 28 Anion Gap 4 BUN 36 H Creatinine 0.59 L Estim Creat Clear Calc 53 Estimated GFR > 60 Glucose 144 H Calcium 9.0 Magnesium 2.3 Total Bilirubin 0.4 AST 110 H ALT 110 H Alkaline Phosphatase 105 Total Protein 6.0 L Albumin 2.1 L Vancomycin Trough 8.6 L
[2024-10-31] MEDS: VANCOMYCIN 1,000 MG/NS 250 ML 1,000 MG/250 ML BAG 166.7 MG IVPB (20:17)
[2024-10-31] MEDS: SODIUM CHLORIDE 0.9% IV 1,000 ML 60 ML IV CONT (20:30)
[2024-11-01] VITALS (21 sets, daily range): BP systolic 94–118; BP diastolic 62–71; PULSE 95–114; RESP 18–34; TEMP 36.9–38.3; O2SAT 90–98
[2024-11-01] MEDS: ALBUTEROL SULFATE (*SP) AEROSOL 1 PUFF 2 PUFF INHALATION ×4 (03:00→20:14)
[2024-11-01 04:31] LABS: Basophils Absolute Auto 0.1 K/mm3 (0.0-0.1); Basophils Percent Auto 0.4 % (0.2-1.2); Eosinophils Absolute Auto 0.1 K/mm3 (0-0.3); Eosinophils Percent Auto 0.4 % (0-4.4); Hematocrit 30.8 % (37.0-47.0); Hemoglobin 9.1 g/dL (12.0-15.0); Immature Granulocyte Absolute 0.25 K/mm3 (0.00-0.031); Immature Granulocyte Percent A 2.2 % (0-0.5); Lymphocytes Absolute Auto 1.11 K/mm3 (0.9-3.2); Lymphocytes Percent Auto 9.7 % (18.3-44.2); Mean Corpuscular HGB Conc 29.5 g/dl (32-36); Mean Corpuscular Hemoglobin 31.5 pg (26-34); Mean Corpuscular Volume 106.6 fl (80-100); Mean Platelet Volume 10.6 fl (7.4-10.4); Monocytes Absolute Auto 0.9 K/mm3 (0.1-0.6); Monocytes Percent Auto 8.2 % (2.6-8.5); Neutrophils Absolute Auto 9.1 K/mm3 (1.3-6.7); Neutrophils Percent Auto 79.1 % (45.5-73.1); Platelet Count Result 190 k/mm3 (150-375); Red Blood Count 2.89 M/mm3 (4.2-5.4); Red Cell Distribution Width 13.6 % (11.5-14.5); White Blood Count 11.5 K/mm3 (4.5-10.0)
[2024-11-01 05:04] LABS: Alanine Aminotransferase 87 U/L (6-35); Albumin Level 2.1 g/dL (3.5-5.1); Alkaline Phosphatase 99 U/L (38-126); Anion Gap 4 mmol/L (4-12); Aspartate Amino Transferase 52 U/L (14-36); Bilirubin,Total 0.7 mg/dL (0.2-1.3); Blood Urea Nitrogen 24 mg/dL (7-17); Calcium 8.9 mg/dL (8.4-10.2); Carbon Dioxide 25 mmol/L (22-30); Chloride 112 mmol/L (98-107); Estimated CRCL calculation 59 ml/min; Estimated Glomerular Filt Rate > 60; Glucose 100 mg/dL (65-110); Magnesium 2.2 mg/dL (1.6-2.3); Potassium 4.2 mmol/L (3.4-5.0); Sodium 141 mmol/L (137-145)
[2024-11-01 05:12] LABS: Anisocytosis 1+; Platelet Estimate Adequate (Adequate)
[2024-11-01 05:13] LABS: Burr Cells 1+; Schistocytes None Seen
[2024-11-01] MEDS: VANCOMYCIN 1,000 MG/NS 250 ML 1,000 MG/250 ML BAG 166.7 MG IVPB (08:46)
--- NOTE | 2024-11-01 11:36 | PCNFU ---
Nutrition Follow-Up Complete: Increased protein energy needs related to wound healing as evidenced by deep tissue pressure injury to coccyx Goal:Adequate PO intake to support wound healing at least 75% meals and supplements Pt not meeting goal, continue to encourage intake Pt current nutrition is Heart healthy, soft and bite sized level 6, Ensure Enlive TID. Nutrition recommendation: encourage po intake Last recorded weight is 67.5 kg. Bowel Motility: +BM 11/01 Labs Reviewed: Hgb:9.1, HCT:30.8, Alb:2.1, BUN:24, Cr:0.53 Meds Noted: MVI Skin: DTI to coccyx Additional Notes: Pt on a heart healthy, soft and bite sized level 6 diet, intake remains poor at 10% of meals, Ensure Enlive TID in place for orders. Encourage po intake of meals and supplements. Monitoring intakes, weights, labs, skin, supplement tolerance, plan of care Follow up in 3 days
--- NOTE | 2024-11-01 11:50 | P.PNIM_ITS ---
Progress Note: A&P Assessment and Plan (1) Altered mental status: Code(s): R41.82 - Altered mental status, unspecified Status: Acute (2) Sepsis: Code(s): A41.9 - Sepsis, unspecified organism Status: Acute (3) Urinary tract infection: Code(s): N39.0 - Urinary tract infection, site not specified Status: Acute (4) Subarachnoid hemorrhage: Code(s): I60.9 - Nontraumatic subarachnoid hemorrhage, unspecified Status: Acute (5) Atrial fibrillation with rapid ventricular response: Code(s): I48.91 - Unspecified atrial fibrillation Status: Acute (6) Chronic anticoagulation: Code(s): Z79.01 - detention (current) use of anticoagulants Status: Acute (7) Chronic kidney disease: Code(s): N18.9 - Chronic kidney disease, unspecified Status: Acute Plan This is an 89-year-old female with a reported history of coronary artery disease, congestive heart failure, hypertension, aortic valve stenosis, ascending aortic aneurysm, paroxysmal atrial fibrillation on chronic anticoagulation, and chronic kidney disease who presented to the emergency department via EMS for evaluation of altered mental status. The patient had been living in independent living up until recently. she was hospitalized at [facility] a few weeks ago after a fall and she is currently at [facility] for rehab where things have not been going well. She has gone downhill and it does not sound as though she is progressing. She has been more fatigued the last several days and has been complaining of body aches. Her appetite has been poor in her oral intake has dropped off. During rounds this morning staff found her to be alert and oriented to self only which is not her baseline (alert and oriented x4). She was febrile when they found her with a temperature of 101? F and EMS was summoned. In the ED: Vital signs on arrival include a temperature of 100.6? F, blood pressure 112/72, pulse 136, respiratory 24, SpO2 96%. Labs are significant for WBC count of 13.1, hemoglobin 11.2, PTT 37.8, INR 3.8, PTT 37.8, sodium 134, BUN 32, creatinine 1.01, lactic acid 1.6, CRP 25.2. Urine was positive for 2+ protein, trace ketones, 3+ blood, nitrates 3+ leukocyte esterase, the 1 to 100 RBC, > 100 WBC, and 4+ bacteria. She was negative for influenza, RSV, and COVID. Head CT showed a small subarachnoid hemorrhage within the left frontal lobe. Chest x-ray was without acute findings. Right shoulder x-ray showed no acute findings. She was started on ceftriaxone for urinary tract infection and Kcentra as she is on apixaban and she is being admitted in this setting. Of note, the ED physician had a discussion with the patient's family who stated that they would not want the patient transferred to a tertiary care facility as they would not want any intervention if the subarachnoid hemorrhage increased in size. Depending on her course over the next 24 hours, they may consider hospice. Repeat CT head this morning so small amount of acute subarachnoid hemorrhage in the right frontal region which is new from prior examination. Previously noted small amount of subarachnoid hemorrhage in the left frontal region is decreased or improved. There are atrophy and white matter changes chronically. Sepsis Acute encephalopathy continues to improve however plateaued. Discussed hospice care Recent falls Subarachnoid hemorrhage left frontal lobe Chronic anticoagulation with apixaban received Kcentra UTI urine culture with MRSA Bacteremia with MRSA start IV vancomycin repeat blood culture in a.m. TTE 10/29/2024 50-55% abnormal diastolic function mildly reduced right ventricular systolic function mild aortic valve stenosis mild pulmonary hypertension mild AR/WA/TR repeat cultures still positive for Gram-positive cocci in clusters. Hospice care discussed. Atrial fibrillation chronic received diltiazem bolus 10 mg in the ER CKD stage 3 Do not resuscitate Subjective Date/time seen: 11/01/24 11:50 Interval history: No overnight events. Patient remains somnolent and confused. Family at bedside and discussed with her. Review of Systems Review of Systems: All systems reviewed & are unremarkable except as noted in HPI and below Exam Narrative: General: Somnolent, elderly female not in acute distress HEENT: PERRL, EOMI. Sclera anicteric. Tacky mucous membranes. Neck: Supple. No midline vertebral tenderness, JVD, lymphadenopathy, or obvious bruits or thyromegaly. Respiratory: Respirations are nonlabored. Lung sounds are diminished due to poor effort. Cardiovascular: Irregularly irregular rate and rhythm. Soft murmur at the upper sternal border. Gastrointestinal: Abdomen is soft, nontender, and nondistended with positive bowel sounds. Skin: Warm and dry. Extremities: No cyanosis or clubbing. Bilateral lower extremity edema. Peripheral pulses palpable. Neurological: Oriented to with place and person not to time Cranial nerves 2-12 are grossly intact. No obvious facial asymmetry. She was noted to move upper and lower extremities. No focal deficits Psychiatric: Calm and cooperative. Objective Data Vital Signs Vital Signs: Vital Signs - 24 hr 10/31/24 12:00 10/31/24 12:00 10/31/24 14:00 Temperature Pulse Rate 92 96 Respiratory Rate Blood Pressure Pulse Oximetry 98 Oxygen Delivery Nasal Cannula Oxygen Flow Rate 1 10/31/24 16:00 10/31/24 16:00 10/31/24 16:00 Temperature 98.5 F Pulse Rate 91 94 Respiratory Rate 18 Blood Pressure 104/72 Pulse Oximetry 95 95 Oxygen Delivery Nasal Cannula Oxygen Flow Rate 1 10/31/24 18:00 10/31/24 20:00 10/31/24 20:00 Temperature 98.6 F Pulse Rate 95 100 Respiratory Rate 22 H Blood Pressure 108/66 Pulse Oximetry 94 96 Oxygen Delivery Nasal Cannula Oxygen Flow Rate 1 10/31/24 20:00 10/31/24 20:37 10/31/24 22:13 Temperature Pulse Rate 108 H 101 H Respiratory Rate Blood Pressure Pulse Oximetry 95 Oxygen Delivery Nasal Cannula Oxygen Flow Rate 1 10/31/24 23:58 10/31/24 23:59 11/01/24 00:00 Temperature 98.6 F Pulse Rate 101 H 101 H Respiratory Rate 20 Blood Pressure 118/73 Pulse Oximetry 94 96 Oxygen Delivery Nasal Cannula Oxygen Flow Rate 1 11/01/24 02:00 11/01/24 03:40 11/01/24 04:00 Temperature 98.8 F Pulse Rate 104 H 101 H Respiratory Rate 18 Blood Pressure 106/68 Pulse Oximetry 97 96 Oxygen Delivery Nasal Cannula Oxygen Flow Rate 1 11/01/24 04:00 11/01/24 05:58 11/01/24 07:32 Temperature 101.0 F H Pulse Rate 109 H 100 103 H Respiratory Rate 28 H Blood Pressure 118/68 Pulse Oximetry 98 Oxygen Delivery Oxygen Flow Rate 11/01/24 08:35 11/01/24 08:35 11/01/24 11:10 Temperature 99.3 F Pulse Rate 106 H 114 H Respiratory Rate 20 34 H Blood Pressure 107/71 Pulse Oximetry 96 91 Oxygen Delivery Nasal Cannula Oxygen Flow Rate 1 Intake/Output Intake/Output: Intake & Output 10/29/24 10/30/24 10/31/24 11/01/24 23:59 23:59 23:59 23:59 Intake Total 1790 2711 1900 52 Output Total 475 500 800 300 Balance 1315 2211 1100 -248 Meds/Results Medications: Active Medications Generic Name Dose Route Start Last Admin Trade Name Freq PRN Reason Stop Dose Admin Acetaminophen 650 mg 10/28/24 23:51 Acetaminophen 650 Mg Suppository RECTAL Q6H PRN Mild Pain (1-3) or Fever Acetaminophen 650 mg 10/29/24 13:09 10/30/24 21:34 Acetaminophen 325 Mg Tablet PO 650 mg Q6H PRN Administration pain Albuterol 2 puff 10/29/24 13:15 11/01/24 08:33 Albuterol Sulfate (*Sp) Aerosol 1 Puff INHALATION 2 puff Q6HRT SAMMI Administration Carvedilol 6.25 mg 10/29/24 21:00 Carvedilol 6.25 Mg Tablet PO Q12HR SAMMI Guaifenesin/Dextromethorphan 1 tab 10/29/24 13:09 Guaifenesin 600 Mg/Dextromethorphan 30 Mg Sr Tab 12 Hr PO BID PRN cough Ceftriaxone Sodium 1 gm in 50 mls @ 100 mls/hr 10/29/24 12:00 10/31/24 13:26 Rocephin 1 Gm/Ns 50 Ml IVPB Infused Q24H SAMMI Infusion Sodium Chloride 1,000 mls @ 60 mls/hr 10/29/24 12:40 10/31/24 20:30 Normal Saline Iv IV CONT 60 mls/hr .[id number] SAMMI Administration Vancomycin HCl 1,000 mg in 250 mls @ 166.667 mls/hr 10/31/24 09:00 11/01/24 08:46 Vancomycin 1,000 Mg/Ns 250 Ml IVPB 166.7 mls/hr Q12H SAMMI Administration Multivitamins Therapeutic 1 tablet 10/30/24 09:00 11/01/24 08:49 Multivitamins Therapeutic Tab (*Bkc) PO Not Given DAILY SAMMI Perflutren Lipid Microsphere 0 ml 10/29/24 13:10 Perflutren Lipid Microspheres 1.5 Ml Vial Diluted To 10 Ml Total Volume IV PUSH 11/01/24 13:11 ONCE PRN adequate visualization Protocol Radiology Results: ITS Impressions Chest X-Ray 10/28/24 12:09 Impression: Probable small left pleural effusion. Linear scarring right lung base. Shoulder X-Ray 10/28/24 15:06 IMPRESSION: No acute osseous abnormality right shoulder. 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 Head CT 10/29/24 06:24 Impression: Small amount of acute subarachnoid hemorrhage in the right frontal region, new from prior exam. Previously noted small amount of subarachnoid hemorrhage in the left frontal region is decreased/improved. Atrophy and chronic white matter changes, as above. Labs Labs: Laboratory Results - last 24 hr 11/01/24 04:09 WBC 11.5 H RBC 2.89 L Hgb 9.1 L Hct 30.8 L MCV 106.6 H MCH 31.5 MCHC 29.5 L RDW 13.6 Plt Count 190 MPV 10.6 H Immature Gran % (Auto) 2.2 H Neut % (Auto) 79.1 H Lymph % (Auto) 9.7 L [place] % (Auto) 8.2 Eos % (Auto) 0.4 Baso % (Auto) 0.4 Lymph # (Auto) 1.11 [place] # (Auto) 0.9 H Eos # (Auto) 0.1 Baso # (Auto) 0.1 Abs Immat Gran (auto) 0.25 H Absolute Neuts (auto) 9.1 H Absolute Nucleated RBC 0.000 Band Neutrophils % Not Reportable Nucleated RBC % 0.0 Platelet Estimate Adequate Anisocytosis 1+ Maria Luz Cells 1+ Schistocytes None seen Sodium 141 Potassium 4.2 Chloride 112 H Carbon Dioxide 25 Anion Gap 4 BUN 24 H D Creatinine 0.53 L Estim Creat Clear Calc 59 Estimated GFR > 60 Glucose 100 Calcium 8.9 Magnesium 2.2 Total Bilirubin 0.7 AST 52 H ALT 87 H Alkaline Phosphatase 99 Total Protein 6.0 L Albumin 2.1 L
[2024-11-01] MEDS: SODIUM CHLORIDE 0.9% IV 1,000 ML 60 ML IV CONT (15:41)
[2024-11-01] MEDS: MAGNESIUM OXIDE 400 MG TABLET PO (17:02)
[2024-11-01] MEDS: ACETAMINOPHEN 325 MG TABLET 650 MG PO (17:02)
[2024-11-01] MEDS: carvediloL 6.25 MG TABLET PO (21:13)
[2024-11-01 21:22] LABS: Vancomycin Trough 17.4 ug/mL (10.0-20.0)
[2024-11-02] VITALS (15 sets, daily range): BP systolic 98–125; BP diastolic 60–74; PULSE 78–96; RESP 16–32; TEMP 36.4–37.1; O2SAT 91–97
[2024-11-02] MEDS: ALBUTEROL SULFATE (*SP) AEROSOL 1 PUFF 2 PUFF INHALATION ×2 (07:38→14:22)
[2024-11-02 09:00] LABS: Basophils Absolute Auto 0.1 K/mm3 (0.0-0.1); Basophils Percent Auto 0.4 % (0.2-1.2); Eosinophils Absolute Auto 0.1 K/mm3 (0-0.3); Eosinophils Percent Auto 0.4 % (0-4.4); Hemoglobin 9.5 g/dL (12.0-15.0); Immature Granulocyte Absolute 0.57 K/mm3 (0.00-0.031); Immature Granulocyte Percent A 4.5 % (0-0.5); Lymphocytes Absolute Auto 1.39 K/mm3 (0.9-3.2); Mean Corpuscular HGB Conc 30.6 g/dl (32-36); Mean Corpuscular Volume 104.4 fl (80-100); Mean Platelet Volume 10.2 fl (7.4-10.4); Monocytes Absolute Auto 0.7 K/mm3 (0.1-0.6); Monocytes Percent Auto 5.6 % (2.6-8.5); Neutrophils Absolute Auto 9.8 K/mm3 (1.3-6.7); Neutrophils Percent Auto 78.1 % (45.5-73.1); Platelet Count Result 217 k/mm3 (150-375); Red Blood Count 2.97 M/mm3 (4.2-5.4); Red Cell Distribution Width 13.6 % (11.5-14.5); White Blood Count 12.6 K/mm3 (4.5-10.0)
[2024-11-02 09:10] LABS: Alanine Aminotransferase 69 U/L (6-35); Albumin Level 2.2 g/dL (3.5-5.1); Alkaline Phosphatase 103 U/L (38-126); Anion Gap 3 mmol/L (4-12); Aspartate Amino Transferase 38 U/L (14-36); Bilirubin,Total 0.8 mg/dL (0.2-1.3); Blood Urea Nitrogen 30 mg/dL (7-17); Carbon Dioxide 26 mmol/L (22-30); Chloride 114 mmol/L (98-107); Estimated CRCL calculation 46 ml/min; Estimated Glomerular Filt Rate > 60; Glucose 146 mg/dL (65-110); Magnesium 2.2 mg/dL (1.6-2.3); Potassium 3.9 mmol/L (3.4-5.0); Sodium 143 mmol/L (137-145)
[2024-11-02] MEDS: ACETAMINOPHEN 325 MG TABLET 650 MG PO ×2 (09:58→17:27)
[2024-11-02] MEDS: MULTIVITAMINS THERAPEUTIC TAB (*BKC) 1 TABLET PO (10:00)
[2024-11-02] MEDS: VANCOMYCIN 1,000 MG/NS 250 ML 1,000 MG/250 ML BAG 250 MG IVPB (10:14)
[2024-11-02] MEDS: SODIUM CHLORIDE 0.9% IV 1,000 ML 60 ML IV CONT (10:18)
--- NOTE | 2024-11-02 12:03 | P.PNIM_ITS ---
Progress Note: A&P Assessment and Plan (1) Altered mental status: Code(s): R41.82 - Altered mental status, unspecified Status: Acute (2) Sepsis: Code(s): A41.9 - Sepsis, unspecified organism Status: Acute (3) Urinary tract infection: Code(s): N39.0 - Urinary tract infection, site not specified Status: Acute (4) Subarachnoid hemorrhage: Code(s): I60.9 - Nontraumatic subarachnoid hemorrhage, unspecified Status: Acute (5) Atrial fibrillation with rapid ventricular response: Code(s): I48.91 - Unspecified atrial fibrillation Status: Acute (6) Chronic anticoagulation: Code(s): Z79.01 - intermediate (current) use of anticoagulants Status: Acute (7) Chronic kidney disease: Code(s): N18.9 - Chronic kidney disease, unspecified Status: Acute Plan This is an 89-year-old female with a reported history of coronary artery disease, congestive heart failure, hypertension, aortic valve stenosis, ascending aortic aneurysm, paroxysmal atrial fibrillation on chronic anticoagulation, and chronic kidney disease who presented to the emergency department via EMS for evaluation of altered mental status. The patient had been living in independent living up until recently. she was hospitalized at [facility] a few weeks ago after a fall and she is currently at [facility] for rehab where things have not been going well. She has gone downhill and it does not sound as though she is progressing. She has been more fatigued the last several days and has been complaining of body aches. Her appetite has been poor in her oral intake has dropped off. During rounds this morning staff found her to be alert and oriented to self only which is not her baseline (alert and oriented x4). She was febrile when they found her with a temperature of 101? F and EMS was summoned. In the ED: Vital signs on arrival include a temperature of 100.6? F, blood pressure 112/72, pulse 136, respiratory 24, SpO2 96%. Labs are significant for WBC count of 13.1, hemoglobin 11.2, PTT 37.8, INR 3.8, PTT 37.8, sodium 134, BUN 32, creatinine 1.01, lactic acid 1.6, CRP 25.2. Urine was positive for 2+ protein, trace ketones, 3+ blood, nitrates 3+ leukocyte esterase, the 1 to 100 RBC, > 100 WBC, and 4+ bacteria. She was negative for influenza, RSV, and COVID. Head CT showed a small subarachnoid hemorrhage within the left frontal lobe. Chest x-ray was without acute findings. Right shoulder x-ray showed no acute findings. She was started on ceftriaxone for urinary tract infection and Kcentra as she is on apixaban and she is being admitted in this setting. Of note, the ED physician had a discussion with the patient's family who stated that they would not want the patient transferred to a tertiary care facility as they would not want any intervention if the subarachnoid hemorrhage increased in size. Depending on her course over the next 24 hours, they may consider hospice. Repeat CT head this morning so small amount of acute subarachnoid hemorrhage in the right frontal region which is new from prior examination. Previously noted small amount of subarachnoid hemorrhage in the left frontal region is decreased or improved. There are atrophy and white matter changes chronically. Sepsis Acute encephalopathy continues to improve however plateaued. Discussed hospice care Recent falls Subarachnoid hemorrhage left frontal lobe Chronic anticoagulation with apixaban received Kcentra UTI urine culture with MRSA Bacteremia with MRSA start IV vancomycin repeat blood culture in a.m. TTE 10/29/2024 50-55% abnormal diastolic function mildly reduced right ventricular systolic function mild aortic valve stenosis mild pulmonary hypertension mild AR/MO/TR repeat cultures still positive for Gram-positive cocci in clusters. Hospice care discussed. Will be transitioning to hospice. With switched to oral Zyvox to complete the course Atrial fibrillation chronic received diltiazem bolus 10 mg in the ER CKD stage 3 Do not resuscitate Transferred to residential hospice in a.m. planned. Subjective Date/time seen: 11/02/24 12:03 Interval history: No overnight events. Patient remains somnolent and confused. Family at bedside and discussed with them. Hospice meeting earlier today and transitioning to hospice and transferred to residential planned in a.m. Review of Systems Review of Systems: All systems reviewed & are unremarkable except as noted in HPI and below Exam Narrative: General: More alert and conversant, elderly female not in acute distress HEENT: PERRL, EOMI. Sclera anicteric. Tacky mucous membranes. Neck: Supple. No midline vertebral tenderness, JVD, lymphadenopathy, or obvious bruits or thyromegaly. Respiratory: Respirations are nonlabored. Lung sounds are diminished due to poor effort. Cardiovascular: Irregularly irregular rate and rhythm. Soft murmur at the upper sternal border. Gastrointestinal: Abdomen is soft, nontender, and nondistended with positive bowel sounds. Skin: Warm and dry. Extremities: No cyanosis or clubbing. Bilateral lower extremity edema. Peripheral pulses palpable. Neurological: Oriented to with place and person not to time Cranial nerves 2-12 are grossly intact. No obvious facial asymmetry. She was noted to move upper and lower extremities. No focal deficits Psychiatric: Calm and cooperative. Objective Data Vital Signs Vital Signs: Vital Signs - 24 hr 11/01/24 14:00 11/01/24 14:43 11/01/24 15:59 Temperature 99.5 F Pulse Rate 105 H 103 H 107 H Respiratory Rate 18 28 H Blood Pressure 100/67 Pulse Oximetry 96 Oxygen Delivery 11/01/24 16:30 11/01/24 18:00 11/01/24 19:02 Temperature 98.5 F Pulse Rate 107 H 100 103 H Respiratory Rate 22 H Blood Pressure 94/62 L Pulse Oximetry 90 Oxygen Delivery 11/01/24 20:00 11/01/24 20:00 11/01/24 20:14 Temperature Pulse Rate 110 H Respiratory Rate Blood Pressure Pulse Oximetry 90 93 Oxygen Delivery Room Air Room Air 11/01/24 21:13 11/01/24 22:00 11/02/24 00:00 Temperature 98.1 F Pulse Rate 95 112 H 92 Respiratory Rate 18 Blood Pressure 98/64 L Pulse Oximetry 94 Oxygen Delivery 11/02/24 00:00 11/02/24 00:00 11/02/24 02:00 Temperature Pulse Rate 89 86 Respiratory Rate Blood Pressure Pulse Oximetry 94 Oxygen Delivery Room Air 11/02/24 03:36 11/02/24 04:00 11/02/24 04:00 Temperature 98.8 F Pulse Rate 96 96 Respiratory Rate 18 Blood Pressure 102/60 Pulse Oximetry 94 94 Oxygen Delivery Room Air 11/02/24 06:00 11/02/24 07:44 11/02/24 07:44 Temperature Pulse Rate 90 88 88 Respiratory Rate 20 20 Blood Pressure Pulse Oximetry 95 Oxygen Delivery Room Air 11/02/24 08:00 11/02/24 08:20 11/02/24 08:20 Temperature 97.5 F L Pulse Rate 89 96 Respiratory Rate 16 Blood Pressure 117/67 Pulse Oximetry 97 95 Oxygen Delivery Room Air Intake/Output Intake/Output: Intake & Output 10/30/24 10/31/24 11/01/24 11/02/24 23:59 23:59 23:59 23:59 Intake Total 2711 1900 1470 1440 Output Total 500 800 500 250 Balance 2211 4563 821 2928 Meds/Results Medications: Active Medications Generic Name Dose Route Start Last Admin Trade Name Freq PRN Reason Stop Dose Admin Acetaminophen 650 mg 10/28/24 23:51 Acetaminophen 650 Mg Suppository RECTAL Q6H PRN Mild Pain (1-3) or Fever Acetaminophen 650 mg 10/29/24 13:09 11/02/24 09:58 Acetaminophen 325 Mg Tablet PO 650 mg Q6H PRN Administration pain Albuterol 2 puff 10/29/24 13:15 11/02/24 07:38 Albuterol Sulfate (*Sp) Aerosol 1 Puff INHALATION 2 puff Q6HRT SAMMI Administration Carvedilol 6.25 mg 10/29/24 21:00 11/02/24 10:10 Carvedilol 6.25 Mg Tablet PO Not Given Q12HR SAMMI Guaifenesin/Dextromethorphan 1 tab 10/29/24 13:09 Guaifenesin 600 Mg/Dextromethorphan 30 Mg Sr Tab 12 Hr PO BID PRN cough Sodium Chloride 1,000 mls @ 60 mls/hr 10/29/24 12:40 11/02/24 10:18 Normal Saline Iv IV CONT 60 mls/hr .[id number] SAMMI Administration Vancomycin HCl 1,000 mg in 250 mls @ 250 mls/hr 11/02/24 10:00 11/02/24 10:14 Vancomycin 1,000 Mg/Ns 250 Ml IVPB 250 mls/hr Q12H SAMMI Administration Magnesium Oxide 400 mg 11/01/24 17:00 11/02/24 10:10 Magnesium Oxide 400 Mg Tablet PO Not Given BID SAMMI Multivitamins Therapeutic 1 tablet 10/30/24 09:00 11/02/24 10:00 Multivitamins Therapeutic Tab (*Bkc) PO 1 tablet DAILY SAMMI Administration Spironolactone 12.5 mg 11/02/24 09:00 11/02/24 10:10 Spironolactone 12.5 Mg Tablet PO Not Given DAILY SAMMI Radiology Results: ITS Impressions Chest X-Ray 10/28/24 12:09 Impression: Probable small left pleural effusion. Linear scarring right lung base. Shoulder X-Ray 10/28/24 15:06 IMPRESSION: No acute osseous abnormality right shoulder. 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 Head CT 10/29/24 06:24 Impression: Small amount of acute subarachnoid hemorrhage in the right frontal region, new from prior exam. Previously noted small amount of subarachnoid hemorrhage in the left frontal region is decreased/improved. Atrophy and chronic white matter changes, as above. Labs Labs: Laboratory Results - last 24 hr 11/01/24 11/02/24 20:16 08:55 WBC 12.6 H RBC 2.97 L Hgb 9.5 L Hct 31.0 L MCV 104.4 H MCH 32.0 MCHC 30.6 L RDW 13.6 Plt Count 217 MPV 10.2 Immature Gran % (Auto) 4.5 H Neut % (Auto) 78.1 H Lymph % (Auto) 11.0 L Stanly % (Auto) 5.6 Eos % (Auto) 0.4 Baso % (Auto) 0.4 Lymph # (Auto) 1.39 Stanly # (Auto) 0.7 H Eos # (Auto) 0.1 Baso # (Auto) 0.1 Abs Immat Gran (auto) 0.57 H Absolute Neuts (auto) 9.8 H Absolute Nucleated RBC 0.000 Nucleated RBC % 0.0 Sodium 143 Potassium 3.9 Chloride 114 H Carbon Dioxide 26 Anion Gap 3 L BUN 30 H Creatinine 0.70 Estim Creat Clear Calc 46 Estimated GFR > 60 Glucose 146 H Calcium 9.0 Magnesium 2.2 Total Bilirubin 0.8 AST 38 H ALT 69 H Alkaline Phosphatase 103 Total Protein 6.0 L Albumin 2.2 L Vancomycin Trough 17.4
[2024-11-02] MEDS: MAGNESIUM OXIDE 400 MG TABLET PO (17:28)
--- NOTE | 2024-11-02 19:35 | PC.NURSE ---
1899- pt med / surg status- report given to Caity RANDOLPH- -pt moved via bed accompanied by staff to room 316- belongings sent with pt- daughter Veronika called and notified of transfer of rooms
--- NOTE | 2024-11-02 20:04 | ADMGEN ---
This patient, Elsi Syed, was admitted to [facility] Surg Room 319-02. Patient/family oriented to hospital policies and general routines including ID bracelet, bed and alarms, visiting hours, pain management, procedures, bathroom and other care routines, personal items, smoking policy, room service/diet, and visiting hours. Information on how to activate the Rapid Response Team has been discussed. Patient/Family are encouraged to report perceived risks to care and to ask questions if they do not understand what they are told or what they should do.
[2024-11-02] MEDS: carvediloL 6.25 MG TABLET PO (20:35)
[2024-11-02] MEDS: LINEZOLID 600 MG TABLET PO (20:36)
--- NOTE | 2024-11-03 05:49 | PC.NURSE ---
Patient refused to be weighed this morning. Stated she is uncomfortable all over and everything hurts, and what's the use when I will be going home to today.
[2024-11-03 06:17] VITALS: BP 108/73; PULSE 86; RESP 16; TEMP 36.7; O2SAT 94
[2024-11-03 08:00] VITALS: BP 111/69; PULSE 92; RESP 20; TEMP 36.5; O2SAT 93
[2024-11-03 09:05] VITALS: PULSE 92
[2024-11-03] MEDS: LINEZOLID 600 MG TABLET PO (09:05)
[2024-11-03] MEDS: SPIRONOLACTONE 12.5 MG TABLET PO (09:05)
[2024-11-03] MEDS: MAGNESIUM OXIDE 400 MG TABLET PO (09:05)
[2024-11-03] MEDS: MULTIVITAMINS THERAPEUTIC TAB (*BKC) 1 TABLET PO (09:05)
[2024-11-03] MEDS: carvediloL 6.25 MG TABLET PO (09:05)
--- NOTE | 2024-11-03 10:46 | P.PNIM_ITS ---
Progress Note: A&P Assessment and Plan (1) Altered mental status: Code(s): R41.82 - Altered mental status, unspecified Status: Acute (2) Sepsis: Code(s): A41.9 - Sepsis, unspecified organism Status: Acute (3) Urinary tract infection: Code(s): N39.0 - Urinary tract infection, site not specified Status: Acute (4) Subarachnoid hemorrhage: Code(s): I60.9 - Nontraumatic subarachnoid hemorrhage, unspecified Status: Acute (5) Atrial fibrillation with rapid ventricular response: Code(s): I48.91 - Unspecified atrial fibrillation Status: Acute (6) Chronic anticoagulation: Code(s): Z79.01 - intermediate (current) use of anticoagulants Status: Acute (7) Chronic kidney disease: Code(s): N18.9 - Chronic kidney disease, unspecified Status: Acute Plan This is an 89-year-old female with a reported history of coronary artery disease, congestive heart failure, hypertension, aortic valve stenosis, ascending aortic aneurysm, paroxysmal atrial fibrillation on chronic anticoagulation, and chronic kidney disease who presented to the emergency department via EMS for evaluation of altered mental status. The patient had been living in independent living up until recently. she was hospitalized at [facility] a few weeks ago after a fall and she is currently at [facility] for rehab where things have not been going well. She has gone downhill and it does not sound as though she is progressing. She has been more fatigued the last several days and has been complaining of body aches. Her appetite has been poor in her oral intake has dropped off. During rounds this morning staff found her to be alert and oriented to self only which is not her baseline (alert and oriented x4). She was febrile when they found her with a temperature of 101? F and EMS was summoned. In the ED: Vital signs on arrival include a temperature of 100.6? F, blood pressure 112/72, pulse 136, respiratory 24, SpO2 96%. Labs are significant for WBC count of 13.1, hemoglobin 11.2, PTT 37.8, INR 3.8, PTT 37.8, sodium 134, BUN 32, creatinine 1.01, lactic acid 1.6, CRP 25.2. Urine was positive for 2+ protein, trace ketones, 3+ blood, nitrates 3+ leukocyte esterase, the 1 to 100 RBC, > 100 WBC, and 4+ bacteria. She was negative for influenza, RSV, and COVID. Head CT showed a small subarachnoid hemorrhage within the left frontal lobe. Chest x-ray was without acute findings. Right shoulder x-ray showed no acute findings. She was started on ceftriaxone for urinary tract infection and Kcentra as she is on apixaban and she is being admitted in this setting. Of note, the ED physician had a discussion with the patient's family who stated that they would not want the patient transferred to a tertiary care facility as they would not want any intervention if the subarachnoid hemorrhage increased in size. Depending on her course over the next 24 hours, they may consider hospice. Repeat CT head this morning so small amount of acute subarachnoid hemorrhage in the right frontal region which is new from prior examination. Previously noted small amount of subarachnoid hemorrhage in the left frontal region is decreased or improved. There are atrophy and white matter changes chronically. Sepsis Acute encephalopathy continues to improve however plateaued. Discussed hospice care Recent falls Subarachnoid hemorrhage left frontal lobe Chronic anticoagulation with apixaban received Kcentra UTI urine culture with MRSA Bacteremia with MRSA start IV vancomycin repeat blood culture in a.m. TTE 10/29/2024 50-55% abnormal diastolic function mildly reduced right ventricular systolic function mild aortic valve stenosis mild pulmonary hypertension mild AR/KS/TR repeat cultures still positive for Gram-positive cocci in clusters. Hospice care discussed. Will be transitioning to hospice. With switched to oral Zyvox to complete the course Atrial fibrillation chronic received diltiazem bolus 10 mg in the ER CKD stage 3 Do not resuscitate [facility] Subjective Date/time seen: 11/03/24 10:46 Interval history: No overnight events. I saw examined the patient in presents of patient's daughter. Patient is alert, able to answer questions and follow commands. Patient has no complaints, patient has no obvious distress Exam Narrative: GENERAL: Ill-appearing, in no acute distress. Well-nourished. - EYES: EOMI. Anicteric. Pale - HENT: Moist mucous membranes. - LUNGS: Clear to auscultation bilateral ly, no wheezing, rhonchi, or rales. - CARDIOVASCULAR: Regular rate and rhyth m. No murmur. No JVD. - ABDOMEN: Soft, non-tender and non-dist ended. No palpable masses. - EXTREMITIES: 2+ edema of all extremit ies. Peripheral pulses 2+. Non-tender. - NEUROLOGIC: No focal neurological defi cits. CN II-XII grossly intact. - PSYCHIATRIC: Awake, Alert and oriented x 3. Appropriate mood and affect. - SKIN: No rashes or lesions. Warm. - LYMPH: No cervical lymphadenopathy. Objective Data Vital Signs Vital Signs: Vital Signs - 24 hr 11/02/24 12:00 11/02/24 14:00 11/02/24 14:25 Temperature Pulse Rate 84 90 Respiratory Rate 20 Blood Pressure Pulse Oximetry 92 91 Oxygen Delivery Room Air Room Air 11/02/24 14:25 11/02/24 16:00 11/02/24 16:30 Temperature 98.0 F Pulse Rate 90 88 78 Respiratory Rate 20 32 H Blood Pressure 125/74 Pulse Oximetry 95 Oxygen Delivery 11/02/24 20:35 11/02/24 20:35 11/02/24 21:44 Temperature 97.5 F L Pulse Rate 80 80 Respiratory Rate 16 Blood Pressure 107/65 Pulse Oximetry 94 Oxygen Delivery Room Air 11/03/24 06:17 11/03/24 08:00 11/03/24 09:05 Temperature 98.1 F 97.7 F Pulse Rate 86 92 92 Respiratory Rate 16 20 Blood Pressure 108/73 111/69 Pulse Oximetry 94 93 Oxygen Delivery 11/03/24 09:12 Temperature Pulse Rate Respiratory Rate Blood Pressure Pulse Oximetry Oxygen Delivery Room Air Intake/Output Intake/Output: Intake & Output 10/31/24 11/01/24 11/02/24 11/03/24 23:59 23:59 23:59 23:59 Intake Total 1900 1470 2650 329 Output Total 800 500 550 150 Balance 3869 041 8540 179 Meds/Results Medications: Active Medications Generic Name Dose Route Start Last Admin Trade Name Freq PRN Reason Stop Dose Admin Acetaminophen 650 mg 10/28/24 23:51 Acetaminophen 650 Mg Suppository RECTAL Q6H PRN Mild Pain (1-3) or Fever Acetaminophen 650 mg 10/29/24 13:09 11/02/24 17:27 Acetaminophen 325 Mg Tablet PO 650 mg Q6H PRN Administration pain Albuterol 2 puff 11/02/24 15:34 Albuterol Sulfate (*Sp) Aerosol 1 Puff INHALATION Q6HRT PRN Shortness Of Breath Or Wheezing Carvedilol 6.25 mg 10/29/24 21:00 11/03/24 09:05 Carvedilol 6.25 Mg Tablet PO 6.25 mg Q12HR SAMMI Administration Guaifenesin/Dextromethorphan 1 tab 10/29/24 13:09 Guaifenesin 600 Mg/Dextromethorphan 30 Mg Sr Tab 12 Hr PO BID PRN cough Linezolid 600 mg 11/02/24 21:00 11/03/24 09:05 Linezolid 600 Mg Tablet PO 600 mg Q12HR SAMMI Administration Magnesium Oxide 400 mg 11/01/24 17:00 11/03/24 09:05 Magnesium Oxide 400 Mg Tablet PO 400 mg BID SAMMI Administration Multivitamins Therapeutic 1 tablet 10/30/24 09:00 11/03/24 09:05 Multivitamins Therapeutic Tab (*Bkc) PO 1 tablet DAILY SAMMI Administration Spironolactone 12.5 mg 11/02/24 09:00 11/03/24 09:05 Spironolactone 12.5 Mg Tablet PO 12.5 mg DAILY SAMMI Administration Radiology Results: ITS Impressions Chest X-Ray 10/28/24 12:09 Impression: Probable small left pleural effusion. Linear scarring right lung base. Shoulder X-Ray 10/28/24 15:06 IMPRESSION: No acute osseous abnormality right shoulder. 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 Head CT 10/29/24 06:24 Impression: Small amount of acute subarachnoid hemorrhage in the right frontal region, new from prior exam. Previously noted small amount of subarachnoid hemorrhage in the left frontal region is decreased/improved. Atrophy and chronic white matter changes, as above.
--- NOTE | 2024-11-03 10:49 | P.DS_ITS ---
DS: Admitting Diagnosis Discharge Date 11/03/24 Admitting Diagnosis (1) Altered mental status: Code(s): R41.82 - Altered mental status, unspecified Status: Acute (2) Sepsis: Code(s): A41.9 - Sepsis, unspecified organism Status: Acute (3) Urinary tract infection: Code(s): N39.0 - Urinary tract infection, site not specified Status: Acute (4) Subarachnoid hemorrhage: Code(s): I60.9 - Nontraumatic subarachnoid hemorrhage, unspecified Status: Acute (5) Atrial fibrillation with rapid ventricular response: Code(s): I48.91 - Unspecified atrial fibrillation Status: Acute (6) Chronic anticoagulation: Code(s): Z79.01 - residential (current) use of anticoagulants Status: Acute (7) Chronic kidney disease: Code(s): N18.9 - Chronic kidney disease, unspecified Status: Acute DS: Discharge Diagnosis Discharge Diagnosis (1) Altered mental status: Code(s): R41.82 - Altered mental status, unspecified Status: Acute (2) Sepsis: Code(s): A41.9 - Sepsis, unspecified organism Status: Acute (3) Urinary tract infection: Code(s): N39.0 - Urinary tract infection, site not specified Status: Acute (4) Subarachnoid hemorrhage: Code(s): I60.9 - Nontraumatic subarachnoid hemorrhage, unspecified Status: Acute (5) Atrial fibrillation with rapid ventricular response: Code(s): I48.91 - Unspecified atrial fibrillation Status: Acute (6) Chronic anticoagulation: Code(s): Z79.01 - [employer] (current) use of anticoagulants Status: Acute (7) Chronic kidney disease: Code(s): N18.9 - Chronic kidney disease, unspecified Status: Acute DS: Summary Hospital Course Hospital Course: This is an 89-year-old female with a reported history of coronary artery disease, congestive heart failure, hypertension, aortic valve stenosis, a scending aortic aneurysm, paroxysmal atrial fibrillation on chronic anticoagulation, and chronic kidney disease who presented to the emergency department via EMS for evaluation of altered mental status. The patient had been living in independent living up until recently. she was hospitalized at [facility] a few weeks ago after a fall and she is currently at [facility] for rehab where things have not been going well. She has gone downhill and it does not sound as though she is progressing. She has been more fatigued the last several days and has been complaining of body aches. Her appetite has been poor in her oral intake has dropped off. During rounds this morning staff found her to be alert and oriented to self only which is not her baseline (alert and oriented x4). She was febrile when they found her with a temperature of 101? F and EMS was summoned. In the ED: Vital signs on arrival include a temperature of 100.6? F, blood pressure 112/72, pulse 136, respiratory 24, SpO2 96%. Labs are significant for WBC count of 13.1, hemoglobin 11.2, PTT 37.8, INR 3.8, PTT 37.8, sodium 134, BUN 32, creatinine 1.01, lactic acid 1.6, CRP 25.2. Urine was positive for 2+ protein, trace ketones, 3+ blood, nitrates 3+ leukocyte esterase, the 1 to 100 RBC, > 100 WBC, and 4+ bacteria. She was negative for influenza, RSV, and COVID. Head CT showed a small subarachnoid hemorrhage within the left frontal lobe. Chest x-ray was without acute findings. Right shoulder x-ray showed no acute findings. She was started on ceftriaxone for urinary tract infection and Kcentra as she is on apixaban and she is being admitted in this setting. Of note, the ED physician had a discussion with the patient's family who stated that they would not want the patient transferred to a tertiary care facility as they would not want any intervention if the subarachnoid hemorrhage increased in size. Depending on her course over the next 24 hours, they may consider hospice. Repeat CT head this morning so small amount of acute subarachnoid hemorrhage in the right frontal region which is new from prior examination. Previously noted small amount of subarachnoid hemorrhage in the left frontal region is decreased or improved. There are atrophy and white matter changes chronically. Acute encephalopathy continues to improve however plateaued. Subarachnoid hemorrhage left frontal lobe Chronic anticoagulation with apixaban received Kcentra Recent falls UTI urine culture with MRSA Bacteremia with MRSA start IV vancomycin repeat blood culture in a.m. TTE 10/29/2024 50-55% abnormal diastolic function mildly reduced right ventricular systolic function mild aortic valve stenosis mild pulmonary hypertension mild AR/IL/TR repeat cultures still positive for Gram-positive cocci in clusters. switched to oral Zyvox to complete the course Atrial fibrillation chronic received diltiazem bolus 10 mg in the ER CKD stage 3 Do not resuscitate Patient will be transferred to alf for hospice today, hold abx at discharge given hospice care Time Spent with Patient Time attestation: Total time spent providing and/or coordinating discharge services: Exam Narrative: GENERAL: Ill-appearing, in no acute distress. Well-nourished. - EYES: EOMI. Anicteric. Pale - HENT: Moist mucous membranes. - LUNGS: Clear to auscultation bilateral ly, no wheezing, rhonchi, or rales. - CARDIOVASCULAR: Regular rate and rhyth m. No murmur. No JVD. - ABDOMEN: Soft, non-tender and non-dist ended. No palpable masses. - EXTREMITIES: 2+ edema of all extremit ies. Peripheral pulses 2+. Non-tender. - NEUROLOGIC: No focal neurological defi cits. CN II-XII grossly intact. - PSYCHIATRIC: Awake, Alert and oriented x 3. Appropriate mood and affect. - SKIN: No rashes or lesions. Warm. - LYMPH: No cervical lymphadenopathy. Discharge Plan Discharge Attending physician on discharge: Placido Henning Consulting providers: Caity Coello Discharging Clinician: Placido Henning Anticipated Discharge Date/Time: 11/03/24 10:50 Patient Disposition: Hospice - Medical Facility Activity: as tolerated Diet: as tolerated Patient Instructions: Apixaban (By mouth), Heart Failure (GEN) Patient Language: Vincentian Stand Alone Forms: General Discharge Information Follow-up/Referrals: Dyan,Fela Vazquez MD [Primary Care Provider] - (see pcp as needed ) Discharge Medications: Continued acetaminophen 325 mg tablet 650 mg PO Q6H PRN (Reason: pain) albuterol sulfate 90 mcg/actuation HFA aerosol inhaler 2 puff INHALATION Q6H carvedilol 6.25 mg tablet 6.25 mg PO Q12H multivitamin Tablet 1 tablet PO DAILY furosemide 20 mg tablet 40 mg PO DAILY magnesium 200 mg tablet 400 mg PO BID dextromethorphan-guaifenesin 30-600 mg tablet extended release 12 hr 1 tablet PO BID PRN (Reason: cough) potassium chloride [Klor-Con M20] 20 mEq tablet,ER particles/crystals 20 meq PO ONCE spironolactone 25 mg tablet 12.5 mg PO DAILY Discontinued Eliquis 5 mg tablet 5 mg PO Q12H Date of admission: 10/29/24 08:54 Primary Care Provider: Dyan,Fela Vazquez Admitting Provider: Renetta John Attending physician on admission: Renetta John Condition: Serious
--- NOTE | 2024-11-04 07:17 | P.CDI_ITS ---
CDI Query Clarification Request 1) Please clarify if sepsis was present on admission 2) CHF has been documented, Please specify type and acuity of heart failure if known. * Acute * Chronic * Acute on Chronic * Unknown * Systolic * Diastolic * Combined Systolic and Diastolic * Unknown Plan This is an 89-year-old female with a reported history of coronary artery disease, congestive heart failure, hypertension, aortic valve stenosis, ascending aortic aneurysm, paroxysmal atrial fibrillation on chronic anticoagulation, and chronic kidney disease who presented to the emergency department via EMS for evaluation of altered mental status. The patient had been living in independent living up until recently. she was hospitalized at [facility] a few weeks ago after a fall and she is currently at [facility] for rehab where things have not been going well. She has gone downhill and it does not sound as though she is progressing. She has been more fatigued the last several days and has been complaining of body aches. Her appetite has been poor in her oral intake has dropped off. During rounds this morning staff found her to be alert and oriented to self only which is not her baseline (alert and oriented x4). She was febrile when they found her with a temperature of 101? F and EMS was summoned. In the ED: Vital signs on arrival include a temperature of 100.6? F, blood pressure 112/72, pulse 136, respiratory 24, SpO2 96%. Labs are significant for WBC count of 13.1, hemoglobin 11.2, PTT 37.8, INR 3.8, PTT 37.8, sodium 134, BUN 32, creatinine 1.01, lactic acid 1.6, CRP 25.2. Urine was positive for 2+ protein, trace ketones, 3+ blood, nitrates 3+ leukocyte esterase, the 1 to 100 RBC, > 100 WBC, and 4+ bacteria. She was negative for influenza, RSV, and COVID. Head CT showed a small subarachnoid hemorrhage within the left frontal lobe. Chest x-ray was without acute findings. Right shoulder x-ray showed no acute findings. She was started on ceftriaxone for urinary tract infection and Kcentra as she is on apixaban and she is being admitted in this setting. Of note, the ED physician had a discussion with the patient's family who stated that they would not want the patient transferred to a tertiary care facility as they would not want any intervention if the subarachnoid hemorrhage increased in size. Depending on her course over the next 24 hours, they may consider hospice. Repeat CT head this morning so small amount of acute subarachnoid hemorrhage in the right frontal region which is new from prior examination. Previously noted small amount of subarachnoid hemorrhage in the left frontal region is decreased or improved. There are atrophy and white matter changes chronically. <Tigist Fajardo RN - Last Filed: 11/04/24 07:20> Clarified Diagnosis Clarified Diagnosis: the patient has sepsis chronic diastolic chf <Placido Henning MD - Last Filed: 11/04/24 15:24>
== END 2024-11-03 16:37 | disposition hospice, inpatient (51) | DRG 871 ==
LOC: ANHED 14:18 → ANHIMU 16:08 → ANH3MEDSUR 11-02 19:15
PROVIDERS: Emergency Medicine; Internal Medicine; Physician Assistant; Admitting Provider Internal Medicine; Emergency Provider Emergency Medicine; PCP Family Medicine; Visit Provider Hospitalist
DX: A41.02 Sepsis due to Methicillin resistant Staphylococcus aureus (principal); I60.9 Nontraumatic subarachnoid hemorrhage, unspecified; N39.0 Urinary tract infection, site not specified; I13.0 Hypertensive heart and chronic kidney disease with heart failure and stage 1 through stage 4 chronic kidney disease, or unspecified chronic kidney disease; I50.32 Chronic diastolic (congestive) heart failure; G93.40 Encephalopathy, unspecified; I48.20 Chronic atrial fibrillation, unspecified; I35.0 Nonrheumatic aortic (valve) stenosis; I71.21 Aneurysm of the ascending aorta, without rupture; N18.9 Chronic kidney disease, unspecified; R29.6 Repeated falls; N18.30 Chronic kidney disease, stage 3 unspecified; Z20.822 Contact with and (suspected) exposure to COVID-19; Z79.01 Long term (current) use of anticoagulants; Z51.5 Encounter for palliative care
CPT/HCPCS: 36415; 70450; 71045; 73030; 80053; 80202; 81001; 82948; 83605; 83735; 84439; 84443; 84480; 85025; 85027; 85610; 85730; 86140; 87040; 87086; 87181; 87637; 92526; 92610; 93005; 93306; 94640; 96361; 96365; 96367; 96375; 99212; 99285; A9270; G0378; G0463; J0696; J1885; J3370; J7030; J7120; J7168